=== PATIENT | female | born 1955 | race Caucasian/White ===

== ENCOUNTER 2020-02-13 22:30 | Inpatient (IN) | payer MEDICAID, OTHER ==
[~2020-02-13] VITALS: Ht 160 cm; Wt 132.0 kg
[2020-02-13 23:35] LABS: Basophils # (auto) 0.1 10 ^3/uL (0-0.2); Basophils % (auto) 0.6 % (0.0-2.0); Eosinophils # (auto) 0 10 ^3/uL (0-0.8); Eosinophils % (auto) 0.1 % (0.0-7.0); Hematocrit 37.8 % (36.0-46.0); Hemoglobin 11.4 g/dL (12.2-16.2); Lymphocytes # (auto) 1.4 10 ^3/uL (0.4-5.4); Mean Corpuscular Hemoglobin 27.7 pg (28.0-32.0); Mean Corpuscular Hgb Conc. 30.3 g/dL (32.0-36.0); Mean Corpuscular Volume 91.4 fL (80.0-100.0); Monocytes # (auto) 0.8 10 ^3/uL (0-1.3); Monocytes % (auto) 6.1 % (0.0-12.0); Neutrophils # (auto) 10.4 10 ^3/uL (1.6-8.6); Neutrophils % (auto) 82.2 % (37.0-80.0); Nucleated Red Blood Cells % 0.3 %; Platelet Count (auto) 399 10^3/uL (140-450); Red Blood Cells 4.13 10^6/uL (4.0-5.20); Red Cell Distribution Width 17.2 % (11.8-14.3); White Blood Cell 12.7 10^3/uL (4.4-10.8)
[2020-02-13 23:44] LABS: Albumin 2.3 g/dL (3.4-5.0); Calcium 6.3 mg/dL (8.5-10.1); Potassium 3.6 mmol/L (3.5-5.1)
[2020-02-13 23:47] LABS: Bilirubin, Total 1.2 mg/dL (0.2-1.0); Total Protein 6.9 g/dL (6.4-8.2)
[2020-02-13 23:57] LABS: Amylase 84 U/L (25-115); Lipase 61 U/L (73-393)
[2020-02-14 00:34] LABS: Lactic Acid w/Reflex 4.2 mmol/L (0.4-2.0)
[2020-02-14] MEDS ORDERED: PIPERACILLIN-TAZOB 3.375GM 100 ML IV ONE (01:30)
[2020-02-14] MEDS ORDERED: SODIUM CHLORIDE 0.9% 1,000 ML IV ONE ×3 (01:30→02:00)
[2020-02-14] MEDS ORDERED: VANCOMYCIN 1GM/250ML 250 ML IV ONE (01:30)
[2020-02-14] MEDS ORDERED: ONDANSETRON HCL 4 MG/2 ML VIAL IV PRN (02:00)
[2020-02-14] MEDS ORDERED: ACETAMINOPHEN 325 MG TAB PO PRN (02:00)
[2020-02-14] MEDS: SODIUM CHLORIDE 0.9% 1,000 ML IV SCH ×3 (02:24→21:34)
--- NOTE | 2020-02-14 03:14 | NUR ---
MS admit from [facility] admitted to tele/MS after NO SBAR WAS received. Patient oriented to ROBI YOST primary RN, unit, room, bed, and unit policies regarding patient care and visiting hours. She is A/O x4, on bedrest, skin intact, NG to the right nare currently clamped and pending XRAY verification on placement, IV to the RFA 20g running NS at 100mls/hr. Call light is within reach, side rails up x2, bed is in the lowest position. Patient weighed by bedscale and encouraged to call if they need something. All questions and concerns addressed, patient verbalized understanding. Note:
[2020-02-14 05:00] VITALS: BP 97/45
[2020-02-14] MEDS ORDERED: INFLUENZA QUAD 2019-2020 0.5ml SYRG IM ONE (05:00)
[2020-02-14] MEDS ORDERED: HYDR25TA4 PO (05:14)
[2020-02-14] MEDS ORDERED: LISI-646 PO (05:14)
--- NOTE | 2020-02-14 05:30 | NUR ---
BLADDER SCAN DONE Patient has tried to void 2x since she was admitted to the floor and was unable to. Bladder scan done and it showed 338 mL in the bladder. Patient stated she has not peed since the night of 02/12/20, the day before she came to the hospital. Will page hospitalist.
[2020-02-14] MEDS: metroNIDAZOLE 500MG/100ML 100 ML IV SCH ×3 (05:40→21:34)
--- NOTE | 2020-02-14 05:57 | NUR ---
Hospitalist called back, new order received to place a South for urinary retention.
--- NOTE | 2020-02-14 06:35 | NUR ---
South catheter insertion Patient assessed and determined to be in need of South catheter. Order obtained from MD. Patient educated on catheter and reason for insertion. All questions answered. South catheter 16 gauge Frisian inserted with clean sterile technique. Light kyara urine drained 750 mL. Urine sample collected and sent to lab. Patient tolerated well.
[2020-02-14 06:38] LABS: Basophils # (auto) 0.1 10 ^3/uL (0-0.2); Basophils % (auto) 0.4 % (0.0-2.0); Eosinophils # (auto) 0 10 ^3/uL (0-0.8); Eosinophils % (auto) 0.2 % (0.0-7.0); Hematocrit 34.2 % (36.0-46.0); Hemoglobin 10.9 g/dL (12.2-16.2); Lymphocytes # (auto) 2.2 10 ^3/uL (0.4-5.4); Lymphocytes % (auto) 19.3 % (10.0-50.0); Mean Corpuscular Hemoglobin 28.8 pg (28.0-32.0); Mean Corpuscular Hgb Conc. 31.7 g/dL (32.0-36.0); Mean Corpuscular Volume 90.8 fL (80.0-100.0); Monocytes # (auto) 0.8 10 ^3/uL (0-1.3); Monocytes % (auto) 6.7 % (0.0-12.0); Neutrophils # (auto) 8.5 10 ^3/uL (1.6-8.6); Neutrophils % (auto) 73.4 % (37.0-80.0); Nucleated Red Blood Cells % 0.3 %; Platelet Count (auto) 326 10^3/uL (140-450); Red Blood Cells 3.77 10^6/uL (4.0-5.20); Red Cell Distribution Width 17.1 % (11.8-14.3); White Blood Cell 11.6 10^3/uL (4.4-10.8)
--- NOTE | 2020-02-14 06:50 | NUR ---
Urine sample collected and sent to lab via [employer] system.
[2020-02-14 06:57] LABS: Potassium 3.6 mmol/L (3.5-5.1)
[2020-02-14 06:59] LABS: BUN/Creatinine Ratio 8.7
--- NOTE | 2020-02-14 07:00 | NUR ---
NG tube further advanced, chest X-ray ordered stat to verify the placement of the NG tube.
--- NOTE | 2020-02-14 07:26 | NUR ---
Endorsed care to Key FIELDS. Patient is resting in bed, call light is within reach, fall precautions are in place. Patient is pending Chest X-ray to verify NG tube placement.
[2020-02-14 07:28] LABS: Urine Bacteria NONE SEEN /hpf (None Seen); Urine Blood Negative /uL (Negative); Urine Specific Gravity 1.008 (1.001-1.035); Urine WBC 1 /hpf (0 - 5)
[2020-02-14 07:33] LABS: Calcium 5.9 mg/dL (8.5-10.1)
--- NOTE | 2020-02-14 07:33 | NUR ---
Paging Hospitalist: Calcium 5.9 Paging hospitalist regarding critical lab of calcium at 5.9. Waiting for call back.
--- NOTE | 2020-02-14 07:38 | NUR ---
Received call back Received call back from hospitalist for patient's critical lab. Hospitalist to input orders. Will continue to monitor.
[2020-02-14] MEDS ORDERED: CALCIUM CHL 100MG/ML 500 MG in D5W 5% 100 ML IV ONE (07:45)
--- NOTE | 2020-02-14 07:45 | NUR ---
Opening Shift Note Assumed care of patient, who is alert and oriented x4. No S/S of distress/SOB or pain. IV to right FA is patent and intact. Urinary catheter is hung below bladder, free of kinks and draining to gravity. NG tube to right nare is intact. Verifying placement of NG so it is not connected to suction at this time. Bed is low, locked with 2x side rails up. Call light is within reach. Instructed on POC and to callfor assist PRN, will continue to monitor for changes Q1hr and PRN.
[2020-02-14 08:00] VITALS: BP 100/86
--- NOTE | 2020-02-14 08:15 | NUR ---
Tele box Requesting Tele box for patient due to it being required while giving calcium IVPB. Will send Telemetry box back after medication administration.
[2020-02-14 08:30] VITALS: BP 100/86
--- NOTE | 2020-02-14 08:45 | NUR ---
Stool Sample Specimen cup at bedside. Provided patient with instructions. Patient verbalized understanding.
[2020-02-14] MEDS: MORPHINE SULFATE 4 MG/ML SYR/VIAL IV PRN ×3 (08:56→18:38)
--- NOTE | 2020-02-14 10:31 | NUR ---
LVM for Ligia Justin LVM for Ligia Justin regarding UGI Gastrografin orders. Waiting for call back.
--- NOTE | 2020-02-14 11:06 | NUR ---
Social Service consult regarding Advance Directives. Provided pt with information on Advance Directives and Durable Power of [place]il[place]er Form/ Pt verbalized understand and accepted information. Will contact Wealth Management Manager for any further concerns.
--- NOTE | 2020-02-14 11:39 | NUR ---
Bhavna Justin for clarification on orders. Waiting for call back.
--- NOTE | 2020-02-14 12:20 | NUR ---
Orders clarified Spoke with Ligia Justin regarding small bowel series. Will call radiology to update.
[2020-02-14 13:00] VITALS: BP 97/57
[2020-02-14] MEDS ORDERED: GASTROGRAFIN 120 ML SOL ONE (13:04)
--- NOTE | 2020-02-14 13:53 | NUR ---
Nutrition Assessment Notes Please refer to link for full assessment notes. Est energy needs: 3739-9784 kcals (12-15 kcal/kgBW) Est protein needs: 57-71 gms/day (0.8-1.0 gm/kgAdjBW) Will continue to monitor and reassess prn. Addendum: 02/14/20 at [address] Amended: Links added.
--- NOTE | 2020-02-14 14:04 | NUR ---
Assessment Patient is a 65-year-old female alert and oriented. Prior to admission patient lived home with her son Isidro and functioned independently. Patient informed me she can care for her own ADLs. Per patient she will return home to her prior living arrangements post discharge and her son Isidro will transport her home. Patient informed me she does not have any medical equipment at home. Advised patient there is a Social Service consult for a walker and information for advance directive. Informed patient clinical information will be faxed to [employer] and OJURDAN Cavazosty will provide her with information for advance directive. Patient requested for walker to be deliver to home. Informed patient she has the right to participate in all discharge planning. Patient verbalized understanding and agrees to discharge plan. Addendum: 02/14/20 at 1404 by MIKE STEWART Amended: Links added.
--- NOTE | 2020-02-14 14:40 | NUR ---
Back from Radiology Per cartographic technician, this nurse is to keep NGT clamped. Patient resting in bed, low locked with 2x side rails up. Call light is within reach. Will continue to monitor.
[2020-02-14 16:38] VITALS: BP 100/57
--- NOTE | 2020-02-14 17:15 | NUR ---
NGT LIS Per Radiology, small bowel series is complete and NGT can be connected back to suction. Set to LIS as per MD order. Will continue to monitor.
--- NOTE | 2020-02-14 18:41 | NUR ---
Sent tele box back to ICU
--- NOTE | 2020-02-14 19:23 | NUR ---
Opening Shift Note Assumed care of patient, awake and alert x4. No S/S of distress/SOB or pain. South is in place and hung below bladder, it is draining kyara urine. NG tube to LIS. Call light is within reach, side rails up x2, bed is in the lowest position. Instructed on POC and to call for assist PRN, will continue to monitor for changes Q1hr and PRN.
[2020-02-14] MEDS: HYDROcodone-ACET 5/325MG TAB PO PRN (21:35)
--- NOTE | 2020-02-14 21:35 | NUR ---
Pain [place] 5 given for complaints of pain 9/0-10 to the great right toe, patient states she thinks it is really to her arthritis and at home she takes Tylenol PM for her pain. Morphine for severe pain is not due until 22:38. Will reassess.
[2020-02-14 22:00] VITALS: BP 94/59
--- NOTE | 2020-02-14 22:35 | NUR ---
PAIN REASSESSMENT Patient is asleep in bed, no S/S of pain noted. Call light is within reach. Will continue to monitor.
[2020-02-15] VITALS (7 sets, daily range): BP systolic 90–119; BP diastolic 56–72
[2020-02-15] MEDS: MORPHINE SULFATE 4 MG/ML SYR/VIAL IV PRN ×2 (01:47→12:06)
--- NOTE | 2020-02-15 01:48 | NUR ---
PAIN Patient is complaining of pain 9/0-10 to the right shoulder. Morphine administered as ordered and a heat pack applied for comfort. Will reassess.
--- NOTE | 2020-02-15 02:17 | NUR ---
PAIN REASSESSMENT Patient is asleep in bed, no S/S of pain noted. Call light is within reach. Will continue to monitor.
[2020-02-15] MEDS ORDERED: PANT1INJ3 PO (05:20)
--- NOTE | 2020-02-15 05:50 | NUR ---
IV removal due to infiltration to RFA IV DC'd with clean sterile technique, catheter fully intact. Pressure dressing applied to site. Patient tolerated well.
[2020-02-15] MEDS: metroNIDAZOLE 500MG/100ML 100 ML IV SCH ×3 (06:34→22:50)
[2020-02-15] MEDS: HYDROcodone-ACET 5/325MG TAB PO PRN ×4 (06:35→22:51)
--- NOTE | 2020-02-15 06:35 | NUR ---
IV insertion 22g LFA IV access obtained, via clean sterile technique by inserting 22 gauge catheter at LFA after 2 attempt(s). IV secured properly. No trauma to site. Patient tolerated well.
--- NOTE | 2020-02-15 06:35 | NUR ---
Pain [place] 5 given for complaints of pain 9/0-10 to the right shoulder, patient requested norco. Will reassess.
[2020-02-15] MEDS: SODIUM CHLORIDE 0.9% 1,000 ML IV SCH ×2 (08:00→18:00)
--- NOTE | 2020-02-15 08:00 | NUR ---
Morning note Patient resting in bed with even and unlabored respirations, no distress noted. Instructed patient on POC, fall precautions and to call for assistance as needed. Patient verbalized understanding. Fall precautions in place with call light within reach. NGT present and placed to LIS per MD order. Patient able to turn self independently.
[2020-02-15] MEDS: cefTRIAXone 1GM/50ML D5W 50 ML IV SCH (08:48)
--- NOTE | 2020-02-15 10:49 | NUR ---
RE: Pain patient requested PRN pain medication for pain located in the right shoulder. PRN pain medication administered per MD order. LIS turned off to allow medication administration.
[2020-02-15 10:51] LABS: Basophils # (auto) 0.1 10 ^3/uL (0-0.2); Basophils % (auto) 0.7 % (0.0-2.0); Eosinophils # (auto) 0.1 10 ^3/uL (0-0.8); Eosinophils % (auto) 1.1 % (0.0-7.0); Hematocrit 39.4 % (36.0-46.0); Hemoglobin 12.2 g/dL (12.2-16.2); Lymphocytes % (auto) 19.9 % (10.0-50.0); Mean Corpuscular Hemoglobin 28.6 pg (28.0-32.0); Mean Corpuscular Volume 92.2 fL (80.0-100.0); Monocytes # (auto) 0.9 10 ^3/uL (0-1.3); Monocytes % (auto) 9.4 % (0.0-12.0); Neutrophils # (auto) 6.8 10 ^3/uL (1.6-8.6); Neutrophils % (auto) 68.9 % (37.0-80.0); Nucleated Red Blood Cells % 0.5 %; Platelet Count (auto) 301 10^3/uL (140-450); Red Blood Cells 4.27 10^6/uL (4.0-5.20); Red Cell Distribution Width 17.5 % (11.8-14.3); White Blood Cell 9.9 10^3/uL (4.4-10.8)
[2020-02-15 11:09] LABS: Calcium 6.4 mg/dL (8.5-10.1); Potassium 3.9 mmol/L (3.5-5.1)
--- NOTE | 2020-02-15 11:37 | NUR ---
was at bedside - Dr. Cabrera Orders received and read back to verify.
[2020-02-15] MEDS ORDERED: KETOROLAC TROMETH 15 mg/ml 1ML VL IV PRN (11:45)
[2020-02-15] MEDS ORDERED: PANTOPRAZOLE 40 MG/10 ML VIAL INJ IV ONE (11:45)
--- NOTE | 2020-02-15 12:20 | NUR ---
NGT removed per MD order Patient tolerated well.
--- NOTE | 2020-02-15 13:55 | NUR ---
Episode of emesis Patient stated "I was coughing and then I gagged and threw up a little." Approximately 20ml of fluid in emesis bag. Patient denies N/V or abdominal pain. Respirations even and unlabored, no distress noted.
--- NOTE | 2020-02-15 15:25 | NUR ---
Patient resting in bed with even and unlabored respirations, no distress noted. Patient denies N/V or abdominal pain. Patient denies passing gas. patient stated "I can feel my stomach bubbling though."
--- NOTE | 2020-02-15 18:45 | NUR ---
Patient has active bowel sounds Patient reports pain in the LUQ, RUQ, and RLLQ. Bowel sounds present. Patient reports nausea comes and goes. Patient denies vomiting. Addendum: 02/15/20 at 1846 by Mayra Oakley RN PRN pain medication administered per MD order.
--- NOTE | 2020-02-15 18:53 | NUR ---
Closing note Patient resting in bed with even and unlabored respirations, no distress noted. Educated patient on pressure ulcer prevention and to turn frequently. Patient verbalized understanding. Patient able to turn self independently. Fall precautions in place with call light within reach.
--- NOTE | 2020-02-15 19:29 | NUR ---
Care endorsed to DIAMOND Rondon.
--- NOTE | 2020-02-15 19:35 | NUR ---
Opening Shift Note Pt is resting in bed with eyes open and resp rate is even and unlabored. Pt w/ positive BS in all 4 quadrants and denies any n/v or diarrhea at this time. Pt is sophia clear liquids w/ no complaints. POC discussed with pt at this time and pt verbalizes understanding including calling when she has a BM for stool collection. Bed is low, wheels are locked, and call light is with in reach.
[2020-02-15] MEDS: KETOROLAC TROMETH 30 MG/ML 1ML VIAL IV PRN (22:51)
[2020-02-16] MEDS: MAGNESIUM SULFATE 1GM/100ML 100 ML IV SCH ×4 (03:38→14:10)
[2020-02-16] MEDS: SODIUM CHLORIDE 0.9% 1,000 ML IV SCH ×2 (03:38→17:55)
[2020-02-16] MEDS: KETOROLAC TROMETH 30 MG/ML 1ML VIAL IV PRN (04:58)
[2020-02-16 05:00] VITALS: BP 100/70
[2020-02-16] MEDS: metroNIDAZOLE 500MG/100ML 100 ML IV SCH (06:05)
--- NOTE | 2020-02-16 07:30 | NUR ---
Morning note Patient resting in bed with even and unlabored respirations, no distress noted. Instructed patient on POC, fall precautions, pressure ulcer prevention and to call for assistance as needed. Patient verbalized understanding. Fall precautions in place with call light within reach. Patient able to turn self independently.
[2020-02-16 09:00] VITALS: BP 109/66
[2020-02-16] MEDS: cefTRIAXone 1GM/50ML D5W 50 ML IV SCH (09:08)
[2020-02-16] MEDS ORDERED: PANTOPRAZOLE 40 MG/10 ML VIAL INJ IV SCH (10:00)
[2020-02-16 10:28] LABS: BUN/Creatinine Ratio 7.6; Calcium 6.7 mg/dL (8.5-10.1); Magnesium 1.5 mg/dL (1.6-2.6); Potassium 3.5 mmol/L (3.5-5.1)
--- NOTE | 2020-02-16 12:18 | NUR ---
MD was at bedside - Dr. Cabrera Patient to be discharged after dinner meal if tolerating diet well. Orders received and read back to verify.
--- NOTE | 2020-02-16 12:18 | NUR ---
MD was at bedside - Dr. Ligia Justin POC discussed with the patient and this RN. Patient okay to be discharged.
[2020-02-16] MEDS ORDERED: METR500T PO (13:05)
[2020-02-16] MEDS ORDERED: LEVO500T21 PO (13:05)
[2020-02-16] MEDS ORDERED: MORPHINE SULF INJ 2 MG/ML SYRINGE 1ML IV PRN (13:15)
[2020-02-16] MEDS: LACTULOSE 20Gm/30ML SOLN PO ONE ×2 (13:24→13:38)
[2020-02-16 13:32] VITALS: BP 103/73
--- NOTE | 2020-02-16 13:41 | NUR ---
RE: discharge/POC Spoke with KOFI Garcia, and Dr. Cabrera RE: discharge plan. Patient unable to transfer self off of toilet as well as in and out of bed. Patient has no assistance at home. verbalized understanding.
--- NOTE | 2020-02-16 13:58 | NUR ---
Patient reports feeling lightheaded with ambulation Patient ambulated to and from the toilet using FWW as assistive device. Jose, PT, accompanied patient. Dr. Shaikh sanchez.
[2020-02-16] MEDS ORDERED: POTASSIUM CHL 20 Meq TABLET PO ONE (14:00)
--- NOTE | 2020-02-16 14:00 | NUR ---
Patient had BM Patient reports BM was watery and loose. Patient reports passing gas. Patient denies N/V and ABD pain.
[2020-02-16] MEDS: metroNIDAZOLE 500 MG TAB PO SCH ×2 (14:11→22:24)
--- NOTE | 2020-02-16 14:35 | NUR ---
re-assessment Per consult SNF placement. Per Laura at [facility] and Cherelle at [facility] does not pay for rehab. Patient has no payor source for SNF. Patient will have to return home on discharge. Dora FIELDS has been notified and Dr Shaikh holland with no call back as of yet. Addendum: 02/16/20 at 1437 by Selena Blunt Amended: Links added.
--- NOTE | 2020-02-16 14:37 | NUR ---
Notified MD RE: SNF placement order Due to insurance, patient not able to be transferred to SNF. MD verbalized understanding. Order received and read back to verify.
[2020-02-16 16:41] VITALS: BP 98/63
[2020-02-16] MEDS: HYDROcodone-ACET 5/325MG TAB PO PRN (18:45)
--- NOTE | 2020-02-16 18:45 | NUR ---
RE: Pain Patient reporting 8/10 pain in the right shoulder. Patient's recent BP low. PRN IV Morphine held due to decreased BP. PRN PO [place] administered. Offered patient a heat pack. Patient refused.
--- NOTE | 2020-02-16 18:48 | NUR ---
Patient tolerating meal okay Patient stated "I'm just not hungry. Nothing tastes good, not even the ice cream. My stomach feels like it's acting up. It's kind of bubbling. I feel like I may need to go poop but not sure."
--- NOTE | 2020-02-16 18:50 | NUR ---
Closing note Patient resting in bed with even and unlabored respirations on room air, no distress noted. Fall precautions in place with call light within reach.
--- NOTE | 2020-02-16 19:10 | NUR ---
Care endorsed to Nela Vail RN.
[2020-02-16 22:21] VITALS: BP 114/80
[2020-02-17] MEDS: SODIUM CHLORIDE 0.9% 1,000 ML IV SCH (03:07)
[2020-02-17 05:04] VITALS: BP 125/85
[2020-02-17 05:29] LABS: BUN/Creatinine Ratio 10.7; Calcium 6.7 mg/dL (8.5-10.1); Magnesium 1.9 mg/dL (1.6-2.6); Potassium 5.4 mmol/L (3.5-5.1)
[2020-02-17] MEDS: metroNIDAZOLE 500 MG TAB PO SCH ×3 (05:31→21:29)
[2020-02-17] MEDS: HYDROcodone-ACET 5/325MG TAB PO PRN ×3 (05:32→19:37)
[2020-02-17 08:00] VITALS: BP 113/70
[2020-02-17 09:05] VITALS: BP 113/70
[2020-02-17] MEDS: levoFLOXacin 500 MG TAB PO SCH (10:51)
[2020-02-17] MEDS: PANTOPRAZOLE 40 MG TAB PO SCH (10:51)
[2020-02-17] MEDS ORDERED: ALBUTEROL SULF 2.5 MG/0.5ML(0.5%) NEB SOLN NEB ONE (11:30)
[2020-02-17] MEDS ORDERED: FUROSEMIDE 20 MG/2 ML VIAL IV ONE (11:30)
[2020-02-17] MEDS ORDERED: InsuLIN REG 1unit/0.01ml Soln (100units/ml) IV ONE (11:30)
[2020-02-17] MEDS ORDERED: SODIUM ZIRCONIUM CYCL 10 GM PAK PO ONE (11:30)
[2020-02-17] MEDS ORDERED: SODIUM BICARBONATE 8.4% INJ 50ML SYRINGE IV ONE (11:30)
[2020-02-17] MEDS ORDERED: DEXTROSE (50%) 50ML SYRG IV ONE (11:30)
[2020-02-17] MEDS ORDERED: SODIUM CHLORIDE 0.9 % NEB SOLN 3ML NEB ONE (12:06)
[2020-02-17 13:00] VITALS: BP 109/57
--- NOTE | 2020-02-17 14:40 | NUR ---
Nutrition Followup Notes Pt wt is 130.0 kg Pt is now on a soft diet, appetite is good aeb ave 75% x3 PO intake per RN doc. Pt with no distress or complaints. Will continue to monitor PO status, skin status, pertinent labs and weight trends. Will f/u in 3 to 5 days. Est energy needs: 7057-5959 kcals (12-15 kcal/kgBW) Est protein needs: 57-71 gms/day (0.8-1.0 gm/kgAdjBW) Will continue to monitor and reassess prn. LABS: Pot 5.4 H, Cl 108 H, Ca 6.7 L, Alb 2.3 L GI: Last BM noted on 02/14/20 per sheet ironworker BS: 19 low risk, no wounds. Please refer to wound assessment report for full details. PES: Problem 1) Increased nutrient needs r/t pt with 0% PO intake aeb pt currently NPO 2) Obesity r/t energy intake in excess of energy needs aeb 243% IBW and BMI of 49.6 kg/m2 Comments Will continue to closely monitor pertinent labs, PO intake and skin status prn. Will followup in 2-3 days. 1) Continue to closely monitor pt NPO status (RESOLVED) 2) If pt remains NPO for the next 72 hours, consider supplemental nutrition support (RESOLVED) 3) Gradually advance pt to oral 2gNa diet when medically feasible and as tolerated (pt with [employer] diet) 4) Refer pt to a RD for nutrition education upon D/C 5) Continue current plan of care
[2020-02-17 16:40] VITALS: BP 125/58
--- NOTE | 2020-02-17 18:21 | NUR ---
RECEIVED CALL FROM DR AUGUST. PATIENT TO BE DISCHARGED TOMORROW MORNING. WILL CHANGE DISCHARGE DATE.
--- NOTE | 2020-02-17 19:40 | NUR ---
RECEIVED PATIENT FROM DAY SHIFT RN. PATIENT RESTING IN BED. NO S/S OF DISTRESS NOTED. C/O PAIN ON RIGHT SHOULDER @ 9/10, PATIENT PREFERRED NORCO, MEDICATED PATIENT ORDERED. POC INSTRUCTED AND ENCOURAGED PATIENT TO CALL FOR DAYLIGHT DRILLER IF NEEDED. BED IN LOWEST POSITION WITH SIDE RAILS UP X 2. CALL SANTOS WITHIN REACH. ALARM ON. CONTINUE TO MONITOR FOR CHANGES Q1H AND PRN.
--- NOTE | 2020-02-17 20:17 | NUR ---
PATIENT'S IV LEAKING. STOPPED IVF. TRYING TO GET ANOTHER IV ACCESS. PATIENT REFUSED AND STATED THAT SHE WILL GO HOME TOMORROW. SHE DID NOT NEED ANOTHER IV INSERTION. WILL REPORT TO CHARGE NURSE SUZI. CONTINUE TO MONITOR.
--- NOTE | 2020-02-17 20:35 | NUR ---
REASSESSED PAIN 05/10. PATIENT STATED COMFORTABLE NOW. CONTINUE TO MONITOR.
[2020-02-17 21:56] VITALS: BP 115/75
--- NOTE | 2020-02-17 22:16 | NUR ---
PATIENT RESTING IN BED. NO S/S OF DISTRESS NOTED. OAKES CATH IN PLACE DRAINING TO GRAVITY. CONTINUE TO MONITOR.
[2020-02-18] MEDS: HYDROcodone-ACET 5/325MG TAB PO PRN ×3 (00:15→10:30)
--- NOTE | 2020-02-18 00:20 | NUR ---
PATIENT C/O PAIN @ 07/11, PATIENT PREFERRED NORCO, MEDICATED PATIENT ORDERED.
--- NOTE | 2020-02-18 01:09 | NUR ---
REASSESSED, PAIN 5/10. PATIENT COMFORTABLE NOW. CONTINUE TO MONITOR.
--- NOTE | 2020-02-18 03:39 | NUR ---
PATIENT SLEEPING. NO S/S OF DISTRESS NOTED. OAKES CATH IN PLACE. CONTINUE CARE.
[2020-02-18 05:12] VITALS: BP 116/72
[2020-02-18] MEDS: metroNIDAZOLE 500 MG TAB PO SCH ×2 (06:01→14:13)
--- NOTE | 2020-02-18 06:02 | NUR ---
PATIENT C/O PAIN @ 07/11, PATIENT PREFERRED NORCO, MEDICATED PATIENT ORDERED.
--- NOTE | 2020-02-18 07:38 | NUR ---
Opening Shift Note Assumed care of patient, awake and alert. No S/S of distress/SOB or pain. Instructed on POC and to call for assist PRN, will continue to monitor for changes Q1hr and PRN. Bed locked in lowest position with two side rails up and call light in reach.
[2020-02-18 08:00] VITALS: BP 115/72
[2020-02-18 09:00] VITALS: BP 115/72
[2020-02-18 09:47] LABS: BUN/Creatinine Ratio 12.2; Calcium 7.4 mg/dL (8.5-10.1); Potassium 3.6 mmol/L (3.5-5.1)
[2020-02-18] MEDS: PANTOPRAZOLE 40 MG TAB PO SCH (10:20)
[2020-02-18] MEDS: levoFLOXacin 500 MG TAB PO SCH (10:20)
[2020-02-18 11:31] VITALS: BP 115/72
[2020-02-18 13:00] VITALS: BP 128/75
--- NOTE | 2020-02-18 16:30 | NUR ---
Discharge instructions given as ordered. Encourage to follow up with PMD as instructed. All questions and concerns addressed. Patient verbalized understanding. Medication reconciliation form completed and copy given to patient. No Home medications held in Pharmacy and none to be returned to patient, and no needed vaccines given. IV removed with catheter intact, pressure dressing applied, herbert catheter removed. Patient taken to vehicle via wheelchair with all personal belongings, accompanied by staff and family member. No distress noted at time of departure.
== END 2020-02-18 16:30 | disposition home or self-care (01) | DRG 720 ==
LOC: EDSEX 22:30 → ER 22:30 → EDBD 22:30 → OVERFLOW 22:31 → WEST WING 02-14 04:38
PROVIDERS: ADMIT Hospitalist; ATTEND Internal Medicine
PROC: 0D9670Z Drainage of Stomach with Drainage Device, Via Natural or Artificial Opening (ICD-10-PCS; principal; 2020-02-14)
DX: A41.9 Sepsis, unspecified organism (principal); N17.0 Acute kidney failure with tubular necrosis; J69.0 Pneumonitis due to inhalation of food and vomit; K56.600 Partial intestinal obstruction, unspecified as to cause; E86.0 Dehydration; I10 Essential (primary) hypertension; E66.01 Morbid (severe) obesity due to excess calories; E87.5 Hyperkalemia; A08.4 Viral intestinal infection, unspecified; Z90.49 Acquired absence of other specified parts of digestive tract; Z68.43 Body mass index [BMI] 50.0-59.9, adult
CPT/HCPCS: 36415; 71045; 74176; 74250; 80048; 80053; 80061; 81001; 82150; 82962; 83605; 83690; 83735; 83880; 84132; 84443; 85025; 87040; 93005; 96365; 96368; 97116; 97163; 97530; C9113; G0378; J0696; J1815; J1885; J2543; J3490; J7060

== ENCOUNTER 2020-03-12 22:25 | Inpatient (IN) | payer MEDICAID ==
[~2020-03-12] VITALS: Ht 160 cm; Wt 125.5 kg
[~2020-03-12 22:25] MED LIST: LEVO500T21 PO; METR500T PO; PANT1INJ3 PO
[2020-03-12] MEDS ORDERED: SODIUM CHLORIDE 0.9% 1,000 ML IV ONE (23:15)
[2020-03-12 23:39] LABS: Basophils # (auto) 0 10 ^3/uL (0-0.2); Basophils % (auto) 0.5 % (0.0-2.0); Eosinophils # (auto) 0.1 10 ^3/uL (0-0.8); Eosinophils % (auto) 0.6 % (0.0-7.0); Hemoglobin 11.2 g/dL (12.2-16.2); Lymphocytes # (auto) 1.6 10 ^3/uL (0.4-5.4); Lymphocytes % (auto) 14.7 % (10.0-50.0); Mean Corpuscular Hgb Conc. 30.3 g/dL (32.0-36.0); Mean Corpuscular Volume 92.5 fL (80.0-100.0); Monocytes # (auto) 0.7 10 ^3/uL (0-1.3); Monocytes % (auto) 6.3 % (0.0-12.0); Neutrophils # (auto) 8.4 10 ^3/uL (1.6-8.6); Neutrophils % (auto) 77.9 % (37.0-80.0); Nucleated Red Blood Cells % 1.2 %; Platelet Count (auto) 220 10^3/uL (140-450); Red Cell Distribution Width 18.4 % (11.8-14.3); White Blood Cell 10.8 10^3/uL (4.4-10.8)
[2020-03-12 23:47] LABS: INR 1.32 (0.9-1.15); Partial Thromboplastin Time 25.2 sec (23.64-32.05)
[2020-03-12 23:52] LABS: Calcium 8.5 mg/dL (8.5-10.1); Potassium 3.5 mmol/L (3.5-5.1)
[2020-03-12 23:55] LABS: Albumin 2.2 g/dL (3.4-5.0); BUN/Creatinine Ratio 14.6
[2020-03-12 23:59] LABS: Bilirubin, Total 1.1 mg/dL (0.2-1.0); Total Protein 7.4 g/dL (6.4-8.2)
[2020-03-13] VITALS (9 sets, daily range): BP systolic 105–137; BP diastolic 73–86
[2020-03-13 02:03] LABS: Urine Bacteria FEW /hpf (None Seen); Urine Blood Negative /uL (Negative); Urine Hyaline Cast MANY /lpf (0 - 2); Urine Mucus FEW (None Seen); Urine Specific Gravity 1.024 (1.001-1.035); Urine WBC 2 /hpf (0 - 5)
[2020-03-13] MEDS ORDERED: MORPHINE SULF INJ 2 MG/ML SYRINGE 1ML IV PRN (03:00)
[2020-03-13] MEDS ORDERED: TEMAZEPAM 15 MG CAP PO PRN (03:00)
[2020-03-13] MEDS ORDERED: NITROGLYCERIN 0.4 MG SL TAB SL PRN (03:00)
[2020-03-13] MEDS ORDERED: ONDANSETRON HCL 4 MG/2 ML VIAL IV PRN (03:00)
[2020-03-13] MEDS ORDERED: LOPERAMIDE HCL 2 MG CAP PO PRN (03:00)
[2020-03-13] MEDS: ACETAMINOPHEN 325 MG TAB PO PRN ×2 (05:15→17:43)
[2020-03-13] MEDS ORDERED: IBUP800T24 PO (05:29)
[2020-03-13] MEDS ORDERED: HYDR25TA4 PO (05:29)
[2020-03-13] MEDS ORDERED: LISI-646 PO (05:29)
[2020-03-13] MEDS: PANTOPRAZOLE 40 MG/10 ML VIAL INJ IV SCH (09:40)
[2020-03-13] MEDS ORDERED: ENOXAPARIN SOD 30 MG/0.3 ML SYRINGE SC SCH (10:00)
[2020-03-13] MEDS ORDERED: ASPirin 81 mg TAB PO SCH (10:00)
[2020-03-13] MEDS ORDERED: POTASSIUM CHL 20 Meq TABLET PO ONE (12:30)
[2020-03-13 13:57] LABS: BUN/Creatinine Ratio 17.5; Potassium 3.5 mmol/L (3.5-5.1)
[2020-03-13] MEDS ORDERED: FUROSEMIDE 40 MG/4 ML VIAL IV ONE (16:00)
[2020-03-13] MEDS ORDERED: POTASSIUM CHLORIDE 20 MEQ, LIDOCAINE 1% (LOCAL ANESTH.) 2 ML in SODIUM CHL 0.9% 100 ML IV ONE (16:00)
[2020-03-13] MEDS: MAGNESIUM SULFATE 1GM/100ML 100 ML IV SCH ×2 (17:43→20:15)
[2020-03-13] MEDS: FUROSEMIDE 40 MG/4 ML VIAL IV SCH (17:45)
[2020-03-13] MEDS: ALBUTEROL SULF 2.5 MG/0.5ML(0.5%) NEB SOLN NEB SCH ×2 (18:11→22:05)
[2020-03-13] MEDS: IPRATROPIUM BROM 0.5 MG/2.5ML INH SOL NEB SCH ×2 (18:11→22:05)
[2020-03-13] MEDS ORDERED: MAGNESIUM SULFATE 1GM/100ML 100 ML IV ONE (20:12)
[2020-03-13] MEDS ORDERED: IOHEXOL 350 MG/ML 100ML IJ ONE (21:01)
[2020-03-13] MEDS ORDERED: ENOXAPARIN SOD 100 MG/1 ML SYRINGE SC ONE (22:15)
[2020-03-13] MEDS: MAGNESIUM OXIDE 400 MG TAB PO SCH (22:48)
[2020-03-14] MEDS: ALBUTEROL SULF 2.5 MG/0.5ML(0.5%) NEB SOLN NEB SCH ×6 (02:33→22:56)
[2020-03-14] MEDS: IPRATROPIUM BROM 0.5 MG/2.5ML INH SOL NEB SCH ×6 (02:34→22:56)
[2020-03-14 05:00] VITALS: BP 101/60
[2020-03-14] MEDS: FUROSEMIDE 40 MG/4 ML VIAL IV SCH ×2 (06:01→18:01)
[2020-03-14 06:28] LABS: Basophils # (auto) 0.1 10 ^3/uL (0-0.2); Basophils % (auto) 0.6 % (0.0-2.0); Eosinophils # (auto) 0.2 10 ^3/uL (0-0.8); Eosinophils % (auto) 1.9 % (0.0-7.0); Hemoglobin 10.1 g/dL (12.2-16.2); Lymphocytes # (auto) 1.7 10 ^3/uL (0.4-5.4); Lymphocytes % (auto) 16.2 % (10.0-50.0); Mean Corpuscular Hemoglobin 28.3 pg (28.0-32.0); Mean Corpuscular Hgb Conc. 31.7 g/dL (32.0-36.0); Mean Corpuscular Volume 89.3 fL (80.0-100.0); Monocytes # (auto) 0.9 10 ^3/uL (0-1.3); Monocytes % (auto) 8.5 % (0.0-12.0); Neutrophils # (auto) 7.8 10 ^3/uL (1.6-8.6); Neutrophils % (auto) 72.8 % (37.0-80.0); Nucleated Red Blood Cells % 0.4 %; Platelet Count (auto) 202 10^3/uL (140-450); Red Blood Cells 3.58 10^6/uL (4.0-5.20); Red Cell Distribution Width 17.8 % (11.8-14.3); White Blood Cell 10.6 10^3/uL (4.4-10.8)
[2020-03-14 06:50] LABS: Alanine Aminotransferase 10 U/L (13-56); Albumin 1.9 g/dL (3.4-5.0); Anion Gap 8 (5-15); Aspartate Aminotransferase 29 U/L (15-37); BUN/Creatinine Ratio 14.3; Blood Urea Nitrogen 14 mg/dL (7-18); Carbon Dioxide 27 mmol/L (21-32); Chloride 106 mmol/L (98-107); GFR African American 74 mL/min; GFR Non-African American 61 mL/min; Glucose 111 mg/dL (74-106); Magnesium 1.4 mg/dL (1.6-2.6); Potassium 3.7 mmol/L (3.5-5.1); Sodium 141 mmol/L (136-145)
[2020-03-14 06:53] LABS: Alkaline Phosphatase 71 U/L (45-117); Total Protein 6.5 g/dL (6.4-8.2)
[2020-03-14] MEDS ORDERED: ADENOSINE 111 MG in GIVE UN-DILUTED 0 ML IV ONE (08:30)
[2020-03-14 09:00] VITALS: BP 108/54
[2020-03-14] MEDS: PANTOPRAZOLE 40 MG/10 ML VIAL INJ IV SCH (09:20)
[2020-03-14] MEDS: MAGNESIUM OXIDE 400 MG TAB PO SCH (09:21)
[2020-03-14] MEDS: ASPirin 81 mg TAB PO SCH (09:21)
[2020-03-14] MEDS ORDERED: ENOXAPARIN SOD 100 MG/1 ML SYRINGE SC SCH (10:00)
[2020-03-14] MEDS ORDERED: ENOXAPARIN SOD 40 MG/0.4 ML SYRINGE SC SCH (10:00)
[2020-03-14] MEDS: MAGNESIUM SULFATE 1GM/100ML 100 ML IV SCH ×4 (11:10→15:37)
[2020-03-14] MEDS: ACETAMINOPHEN 325 MG TAB PO PRN ×2 (11:18→18:10)
[2020-03-14 12:55] VITALS: BP 111/47
[2020-03-14 16:56] VITALS: BP 100/67
[2020-03-14] MEDS: ENOXAPARIN SOD 150 MG/1 ML SYRINGE SC SCH (21:45)
[2020-03-14 22:00] VITALS: BP 100/63
[2020-03-14] MEDS: HYDROcodone-ACET 5/325MG TAB PO PRN (23:24)
[2020-03-15] MEDS: ALBUTEROL SULF 2.5 MG/0.5ML(0.5%) NEB SOLN NEB SCH ×6 (02:30→22:07)
[2020-03-15] MEDS: IPRATROPIUM BROM 0.5 MG/2.5ML INH SOL NEB SCH ×6 (02:30→22:07)
[2020-03-15 05:00] VITALS: BP 94/61
[2020-03-15] MEDS: FUROSEMIDE 40 MG/4 ML VIAL IV SCH ×2 (06:00→17:42)
[2020-03-15 06:53] LABS: Basophils # (auto) 0 10 ^3/uL (0-0.2); Basophils % (auto) 0.4 % (0.0-2.0); Eosinophils # (auto) 0.3 10 ^3/uL (0-0.8); Eosinophils % (auto) 3.5 % (0.0-7.0); Hematocrit 31.5 % (36.0-46.0); Lymphocytes # (auto) 1.9 10 ^3/uL (0.4-5.4); Lymphocytes % (auto) 21.4 % (10.0-50.0); Mean Corpuscular Hemoglobin 28.7 pg (28.0-32.0); Mean Corpuscular Hgb Conc. 31.7 g/dL (32.0-36.0); Mean Corpuscular Volume 90.3 fL (80.0-100.0); Monocytes # (auto) 0.8 10 ^3/uL (0-1.3); Monocytes % (auto) 8.8 % (0.0-12.0); Neutrophils # (auto) 5.7 10 ^3/uL (1.6-8.6); Neutrophils % (auto) 65.9 % (37.0-80.0); Nucleated Red Blood Cells % 0.4 %; Platelet Count (auto) 215 10^3/uL (140-450); Red Blood Cells 3.49 10^6/uL (4.0-5.20); Red Cell Distribution Width 17.6 % (11.8-14.3); White Blood Cell 8.7 10^3/uL (4.4-10.8)
[2020-03-15 06:59] LABS: BUN/Creatinine Ratio 14.3; Magnesium 2.1 mg/dL (1.6-2.6); Potassium 3.1 mmol/L (3.5-5.1)
[2020-03-15] MEDS: HYDROcodone-ACET 5/325MG TAB PO PRN ×3 (08:26→17:41)
[2020-03-15 08:32] VITALS: BP 110/63
[2020-03-15] MEDS ORDERED: ASPI81CH43 PO (10:30)
[2020-03-15] MEDS ORDERED: APIX5TAB PO (10:30)
[2020-03-15] MEDS ORDERED: POTASSIUM CHL 20 Meq TABLET PO ONE (10:30)
[2020-03-15] MEDS ORDERED: POTA-180 PO (10:37)
[2020-03-15] MEDS ORDERED: FURO1TAB31 PO (10:37)
[2020-03-15] MEDS: ASPirin 81 mg TAB PO SCH (10:52)
[2020-03-15] MEDS: MAGNESIUM OXIDE 400 MG TAB PO SCH ×2 (10:52→21:41)
[2020-03-15] MEDS: ENOXAPARIN SOD 150 MG/1 ML SYRINGE SC SCH (10:53)
[2020-03-15] MEDS: PANTOPRAZOLE 40 MG/10 ML VIAL INJ IV SCH (10:53)
[2020-03-15 12:45] VITALS: BP 100/50
[2020-03-15 15:12] VITALS: BP 96/67
[2020-03-15 16:22] VITALS: BP 95/55
[2020-03-15] MEDS: APIXABAN 5 MG TAB PO SCH (21:41)
[2020-03-15] MEDS ORDERED: APIXABAN 5 MG TAB PO SCH (22:00)
[2020-03-15 22:29] VITALS: BP 119/71
[2020-03-16] MEDS: IPRATROPIUM BROM 0.5 MG/2.5ML INH SOL NEB SCH ×5 (02:13→18:25)
[2020-03-16] MEDS: ALBUTEROL SULF 2.5 MG/0.5ML(0.5%) NEB SOLN NEB SCH ×5 (02:13→18:25)
[2020-03-16 05:08] VITALS: BP 126/86
[2020-03-16] MEDS: FUROSEMIDE 40 MG/4 ML VIAL IV SCH ×2 (06:23→18:00)
[2020-03-16] MEDS: HYDROcodone-ACET 5/325MG TAB PO PRN (06:24)
[2020-03-16 09:00] VITALS: BP 111/70
[2020-03-16] MEDS: APIXABAN 5 MG TAB PO SCH (10:28)
[2020-03-16] MEDS: PANTOPRAZOLE 40 MG/10 ML VIAL INJ IV SCH (10:28)
[2020-03-16] MEDS: MAGNESIUM OXIDE 400 MG TAB PO SCH (10:28)
[2020-03-16] MEDS: ASPirin 81 mg TAB PO SCH (10:29)
[2020-03-16 13:00] VITALS: BP 105/66
[2020-03-16 15:21] VITALS: BP 105/66
[2020-03-16 16:32] VITALS: BP 111/77
[2020-03-22] MEDS ORDERED: APIXABAN 5 MG TAB PO SCH (22:00)
== END 2020-03-16 20:45 | disposition home or self-care (01) | DRG 134 ==
LOC: EDBD 22:25 → ER 22:32 → TELE 22:33 → TELE-CENTR 03-13 04:47
PROVIDERS: ADMIT Nurse Practitioner; ATTEND Internal Medicine
DX: I26.99 Other pulmonary embolism without acute cor pulmonale (principal); I21.A1 Myocardial infarction type 2; J96.00 Acute respiratory failure, unspecified whether with hypoxia or hypercapnia; I13.0 Hypertensive heart and chronic kidney disease with heart failure and stage 1 through stage 4 chronic kidney disease, or unspecified chronic kidney disease; I50.33 Acute on chronic diastolic (congestive) heart failure; K56.600 Partial intestinal obstruction, unspecified as to cause; R55 Syncope and collapse; G89.29 Other chronic pain; N18.9 Chronic kidney disease, unspecified; R10.9 Unspecified abdominal pain; R79.89 Other specified abnormal findings of blood chemistry; K76.0 Fatty (change of) liver, not elsewhere classified; E86.0 Dehydration; E87.6 Hypokalemia; E83.42 Hypomagnesemia; E66.01 Morbid (severe) obesity due to excess calories; Z79.899 Other long term (current) drug therapy; Z90.49 Acquired absence of other specified parts of digestive tract; Z82.49 Family history of ischemic heart disease and other diseases of the circulatory system; Z80.1 Family history of malignant neoplasm of trachea, bronchus and lung; Z68.42 Body mass index [BMI] 45.0-49.9, adult; Z80.7 Family history of other malignant neoplasms of lymphoid, hematopoietic and related tissues
CPT/HCPCS: 36415; 36600; 70450; 71045; 71275; 74176; 80048; 80053; 81001; 82805; 82962; 83605; 83735; 83880; 84443; 84484; 85025; 85379; 85610; 85730; 87081; 87493; 93005; 93306; 93970; 94640; 94660; 96360; 96361; C9113; G0378; J0153; J2001

== ENCOUNTER 2020-03-23 12:56 | Inpatient (IN) | payer MEDICAID ==
[~2020-03-23] VITALS: Ht 157.5 cm; Wt 133.2 kg
[~2020-03-23 12:56] MED LIST changes: +APIX5TAB PO; +ASPI81CH43 PO; +FURO1TAB31 PO; +IBUP800T24 PO; -LEVO500T21 PO; +LISI-646 PO; -METR500T PO; -PANT1INJ3 PO; +POTA-180 PO
[2020-03-23] MEDS ORDERED: SODIUM CHLORIDE 0.9% 1,000 ML IVB ONE (13:33)
[2020-03-23] MEDS ORDERED: PROMETHAZINE HCL 25 MG/ML 1ML IV PRN (13:45)
[2020-03-23 15:01] LABS: Basophils # (auto) 0 10 ^3/uL (0-0.2); Eosinophils # (auto) 0 10 ^3/uL (0-0.8); Lymphocytes # (auto) 1.3 10 ^3/uL (0.4-5.4); Monocytes # (auto) 1.1 10 ^3/uL (0-1.3)
[2020-03-23 15:03] LABS: Basophils % (auto) 0.3 % (0.0-2.0); Eosinophils % (auto) 0.1 % (0.0-7.0); Hematocrit 39.7 % (36.0-46.0); Hemoglobin 12.1 g/dL (12.2-16.2); Lymphocytes % (auto) 8.7 % (10.0-50.0); Mean Corpuscular Hemoglobin 28.3 pg (28.0-32.0); Mean Corpuscular Hgb Conc. 30.4 g/dL (32.0-36.0); Mean Corpuscular Volume 93.3 fL (80.0-100.0); Neutrophils # (auto) 12.7 10 ^3/uL (1.6-8.6); Neutrophils % (auto) 83.9 % (37.0-80.0); Nucleated Red Blood Cells % 0.1 %; Platelet Count (auto) 279 10^3/uL (140-450); Red Blood Cells 4.26 10^6/uL (4.0-5.20); Red Cell Distribution Width 19.6 % (11.8-14.3); White Blood Cell 15.1 10^3/uL (4.4-10.8)
[2020-03-23 15:17] LABS: Albumin 2.1 g/dL (3.4-5.0); Amylase 110 U/L (25-115); Anion Gap 8 (5-15); Aspartate Aminotransferase 32 U/L (15-37); BUN/Creatinine Ratio 24.5; Blood Urea Nitrogen 23 mg/dL (7-18); Calcium 7.8 mg/dL (8.5-10.1); Carbon Dioxide 32 mmol/L (21-32); Chloride 92 mmol/L (98-107); GFR African American 77 mL/min; GFR Non-African American 64 mL/min; Glucose 90 mg/dL (74-106); Lipase 82 U/L (73-393); Magnesium 1.3 mg/dL (1.6-2.6); Potassium 4.2 mmol/L (3.5-5.1); Sodium 132 mmol/L (136-145)
[2020-03-23 15:26] LABS: Alanine Aminotransferase 15 U/L (13-56); Alkaline Phosphatase 79 U/L (45-117); Bilirubin, Total 0.9 mg/dL (0.2-1.0); Total Protein 7.6 g/dL (6.4-8.2)
[2020-03-23] MEDS ORDERED: cefTRIAXone 1GM/50ML D5W 50 ML IV ONE (15:30)
[2020-03-23 18:29] LABS: Urine Bacteria FEW /hpf (None Seen); Urine Blood Negative /uL (Negative); Urine Mucus FEW (None Seen); Urine Specific Gravity 1.025 (1.001-1.035); Urine WBC 5 /hpf (0 - 5)
[2020-03-23] MEDS ORDERED: ONDANSETRON HCL 4 MG/2 ML VIAL IV PRN (19:30)
[2020-03-23] MEDS ORDERED: NITROGLYCERIN 0.4 MG SL TAB SL PRN (19:30)
[2020-03-23] MEDS ORDERED: MORPHINE SULF INJ 2 MG/ML SYRINGE 1ML IV PRN (19:30)
[2020-03-23 20:08] LABS: CRP High Sensitivity 16.7 mg/dL (< 0.3)
[2020-03-23] MEDS: SOD CHL 0.9%/ KCL 20MEQ 1,000 ML IV SCH (20:14)
[2020-03-23] MEDS: LORazepam 2MG/ML-1ML VIAL IV PRN (20:15)
[2020-03-23 20:50] VITALS: BP 138/95
[2020-03-23] MEDS: MAGNESIUM SULFATE 1GM/100ML 100 ML IV SCH ×2 (21:48→23:12)
[2020-03-23] MEDS: METOCLOPRAMIDE HCL 5MG/ml INJ 2ml VIAL IV SCH (22:19)
[2020-03-23] MEDS: PIPERACILLIN-TAZOB 3.375GM 100 ML IV SCH (23:44)
[2020-03-24] MEDS: SOD CHL 0.9%/ KCL 20MEQ 1,000 ML IV SCH ×3 (03:52→20:30)
[2020-03-24 04:00] VITALS: BP 118/77
[2020-03-24] MEDS: METOCLOPRAMIDE HCL 5MG/ml INJ 2ml VIAL IV SCH ×3 (06:16→21:13)
[2020-03-24] MEDS: PIPERACILLIN-TAZOB 3.375GM 100 ML IV SCH ×3 (06:16→17:50)
[2020-03-24 06:47] LABS: Basophils # (auto) 0.1 10 ^3/uL (0-0.2); Hemoglobin 10.5 g/dL (12.2-16.2); Mean Corpuscular Volume 92.1 fL (80.0-100.0); Monocytes # (auto) 1.1 10 ^3/uL (0-1.3); Platelet Count (auto) 323 10^3/uL (140-450)
[2020-03-24 06:48] LABS: Basophils % (auto) 0.8 % (0.0-2.0); Eosinophils # (auto) 0.1 10 ^3/uL (0-0.8); Eosinophils % (auto) 0.9 % (0.0-7.0); Hematocrit 34.5 % (36.0-46.0); Lymphocytes # (auto) 1.7 10 ^3/uL (0.4-5.4); Lymphocytes % (auto) 12.2 % (10.0-50.0); Mean Corpuscular Hgb Conc. 30.4 g/dL (32.0-36.0); Neutrophils # (auto) 11.1 10 ^3/uL (1.6-8.6); Neutrophils % (auto) 78.1 % (37.0-80.0); Nucleated Red Blood Cells % 0.3 %; Red Blood Cells 3.74 10^6/uL (4.0-5.20); Red Cell Distribution Width 19.3 % (11.8-14.3); White Blood Cell 14.2 10^3/uL (4.4-10.8)
[2020-03-24 07:07] LABS: Albumin 1.9 g/dL (3.4-5.0); BUN/Creatinine Ratio 21.8; Calcium 7.3 mg/dL (8.5-10.1); Potassium 3.8 mmol/L (3.5-5.1)
[2020-03-24 07:09] LABS: Bilirubin, Total 0.8 mg/dL (0.2-1.0)
[2020-03-24 09:00] VITALS: BP 131/77
[2020-03-24] MEDS: PANTOPRAZOLE 40 MG/10 ML VIAL INJ IV SCH (10:24)
[2020-03-24] MEDS: ENOXAPARIN SOD 40 MG/0.4 ML SYRINGE SC SCH (10:24)
[2020-03-24 13:00] VITALS: BP 120/87
[2020-03-24] MEDS: MORPHINE SULF INJ 2 MG/ML SYRINGE 1ML IV PRN ×2 (13:47→20:12)
[2020-03-24 22:20] VITALS: BP 122/74
[2020-03-24] MEDS ORDERED: ADENOSINE 6 MG/2 ML INJ IV ONE ×2 (22:26→22:45)
[2020-03-25] MEDS: PIPERACILLIN-TAZOB 3.375GM 100 ML IV SCH ×4 (00:09→17:41)
[2020-03-25] MEDS: SOD CHL 0.9%/ KCL 20MEQ 1,000 ML IV SCH ×3 (00:09→21:30)
[2020-03-25] MEDS: MORPHINE SULF INJ 2 MG/ML SYRINGE 1ML IV PRN ×5 (00:28→20:55)
[2020-03-25] MEDS: METOCLOPRAMIDE HCL 5MG/ml INJ 2ml VIAL IV SCH ×3 (05:36→22:04)
[2020-03-25 05:38] VITALS: BP 129/72
[2020-03-25 05:59] LABS: Eosinophils # (auto) 0.2 10 ^3/uL (0-0.8); Lymphocytes # (auto) 1.2 10 ^3/uL (0.4-5.4)
[2020-03-25 06:02] LABS: Basophils # (auto) 0.1 10 ^3/uL (0-0.2); Basophils % (auto) 0.7 % (0.0-2.0); Eosinophils % (auto) 2.1 % (0.0-7.0); Hematocrit 32.2 % (36.0-46.0); Hemoglobin 9.8 g/dL (12.2-16.2); Lymphocytes % (auto) 12.7 % (10.0-50.0); Mean Corpuscular Hemoglobin 28.7 pg (28.0-32.0); Mean Corpuscular Hgb Conc. 30.6 g/dL (32.0-36.0); Mean Corpuscular Volume 93.9 fL (80.0-100.0); Monocytes # (auto) 0.8 10 ^3/uL (0-1.3); Monocytes % (auto) 7.8 % (0.0-12.0); Neutrophils # (auto) 7.3 10 ^3/uL (1.6-8.6); Neutrophils % (auto) 76.7 % (37.0-80.0); Nucleated Red Blood Cells % 0.2 %; Platelet Count (auto) 309 10^3/uL (140-450); Red Blood Cells 3.43 10^6/uL (4.0-5.20); Red Cell Distribution Width 19.4 % (11.8-14.3); White Blood Cell 9.6 10^3/uL (4.4-10.8)
[2020-03-25 06:22] LABS: Potassium 3.8 mmol/L (3.5-5.1)
[2020-03-25 06:30] LABS: Albumin 1.8 g/dL (3.4-5.0); BUN/Creatinine Ratio 20.5; Bilirubin, Total 0.7 mg/dL (0.2-1.0); Total Protein 6.5 g/dL (6.4-8.2)
[2020-03-25] MEDS ORDERED: GASTROGRAFIN 120 ML SOL ONE (08:14)
[2020-03-25 09:01] VITALS: BP 134/80
[2020-03-25] MEDS ORDERED: MAGNESIUM SULFATE 1GM/100ML 100 ML IV ONE (10:00)
[2020-03-25] MEDS: PANTOPRAZOLE 40 MG/10 ML VIAL INJ IV SCH (10:56)
[2020-03-25] MEDS: ENOXAPARIN SOD 40 MG/0.4 ML SYRINGE SC SCH (10:57)
[2020-03-25] MEDS: METOPROLOL TARTRATE 1MG/1ML-5ML VIAL IV SCH ×2 (12:53→17:42)
[2020-03-25 13:08] VITALS: BP 149/90
[2020-03-25 17:01] VITALS: BP 139/85
[2020-03-25 22:09] VITALS: BP 121/81
[2020-03-26] MEDS: PIPERACILLIN-TAZOB 3.375GM 100 ML IV SCH ×5 (00:05→23:41)
[2020-03-26] MEDS: METOPROLOL TARTRATE 1MG/1ML-5ML VIAL IV SCH ×5 (00:05→23:48)
[2020-03-26] MEDS: MORPHINE SULF INJ 2 MG/ML SYRINGE 1ML IV PRN ×3 (00:06→21:22)
[2020-03-26 05:00] VITALS: BP 98/75
[2020-03-26] MEDS: SOD CHL 0.9%/ KCL 20MEQ 1,000 ML IV SCH ×2 (05:50→12:16)
[2020-03-26] MEDS: METOCLOPRAMIDE HCL 5MG/ml INJ 2ml VIAL IV SCH ×3 (06:01→21:22)
[2020-03-26 07:17] LABS: Basophils # (auto) 0.1 10 ^3/uL (0-0.2); Eosinophils # (auto) 0.1 10 ^3/uL (0-0.8); Eosinophils % (auto) 1.4 % (0.0-7.0); Lymphocytes # (auto) 0.7 10 ^3/uL (0.4-5.4); Monocytes # (auto) 0.6 10 ^3/uL (0-1.3); Monocytes % (auto) 7.7 % (0.0-12.0); Neutrophils # (auto) 6.8 10 ^3/uL (1.6-8.6); White Blood Cell 8.3 10^3/uL (4.4-10.8)
[2020-03-26 07:19] LABS: Basophils % (auto) 0.6 % (0.0-2.0); Hematocrit 34.1 % (36.0-46.0); Hemoglobin 10.3 g/dL (12.2-16.2); Lymphocytes % (auto) 8.3 % (10.0-50.0); Mean Corpuscular Hemoglobin 28.3 pg (28.0-32.0); Mean Corpuscular Hgb Conc. 30.2 g/dL (32.0-36.0); Nucleated Red Blood Cells % 0.3 %; Platelet Count (auto) 365 10^3/uL (140-450); Red Blood Cells 3.63 10^6/uL (4.0-5.20); Red Cell Distribution Width 19.8 % (11.8-14.3)
[2020-03-26 07:33] LABS: Calcium 8.6 mg/dL (8.5-10.1)
[2020-03-26 07:35] LABS: BUN/Creatinine Ratio 18.9
[2020-03-26 08:51] VITALS: BP 135/83
[2020-03-26] MEDS ORDERED: ADENOSINE 6 MG/2 ML INJ IV ONE ×2 (09:45)
[2020-03-26] MEDS: ENOXAPARIN SOD 40 MG/0.4 ML SYRINGE SC SCH (10:04)
[2020-03-26] MEDS: PANTOPRAZOLE 40 MG/10 ML VIAL INJ IV SCH (10:07)
[2020-03-26] MEDS ORDERED: ADENOSINE 6 MG/2 ML INJ IV PRN ×2 (10:45)
[2020-03-26 13:00] VITALS: BP 117/69
[2020-03-26 16:30] VITALS: BP 136/79
[2020-03-26 22:00] VITALS: BP 120/73
[2020-03-27] MEDS: MORPHINE SULF INJ 2 MG/ML SYRINGE 1ML IV PRN ×3 (00:50→21:12)
[2020-03-27] MEDS: LORazepam 2MG/ML-1ML VIAL IV PRN ×2 (02:34→18:31)
[2020-03-27] MEDS: SOD CHL 0.9%/ KCL 20MEQ 1,000 ML IV SCH ×3 (02:43→21:21)
[2020-03-27 05:00] VITALS: BP 137/68
[2020-03-27] MEDS: PIPERACILLIN-TAZOB 3.375GM 100 ML IV SCH ×3 (05:04→18:31)
[2020-03-27] MEDS: METOCLOPRAMIDE HCL 5MG/ml INJ 2ml VIAL IV SCH ×3 (05:05→21:12)
[2020-03-27] MEDS: METOPROLOL TARTRATE 1MG/1ML-5ML VIAL IV SCH ×3 (05:27→18:31)
[2020-03-27 05:52] LABS: Basophils # (auto) 0 10 ^3/uL (0-0.2); Eosinophils # (auto) 0.2 10 ^3/uL (0-0.8); Monocytes # (auto) 0.7 10 ^3/uL (0-1.3)
[2020-03-27 05:57] LABS: Basophils % (auto) 0.5 % (0.0-2.0); Eosinophils % (auto) 2.6 % (0.0-7.0); Hematocrit 32.9 % (36.0-46.0); Hemoglobin 10.1 g/dL (12.2-16.2); Lymphocytes % (auto) 11.8 % (10.0-50.0); Mean Corpuscular Hemoglobin 28.6 pg (28.0-32.0); Mean Corpuscular Hgb Conc. 30.7 g/dL (32.0-36.0); Mean Corpuscular Volume 93.2 fL (80.0-100.0); Monocytes % (auto) 8.5 % (0.0-12.0); Neutrophils # (auto) 6.4 10 ^3/uL (1.6-8.6); Neutrophils % (auto) 76.6 % (37.0-80.0); Platelet Count (auto) 358 10^3/uL (140-450); Red Blood Cells 3.53 10^6/uL (4.0-5.20); White Blood Cell 8.4 10^3/uL (4.4-10.8)
[2020-03-27 06:01] LABS: BUN/Creatinine Ratio 17.8; Calcium 8.6 mg/dL (8.5-10.1); Magnesium 1.7 mg/dL (1.6-2.6); Potassium 3.9 mmol/L (3.5-5.1)
[2020-03-27 08:00] VITALS: BP 147/99
[2020-03-27 08:56] VITALS: BP 147/99
[2020-03-27] MEDS: ENOXAPARIN SOD 40 MG/0.4 ML SYRINGE SC SCH (12:21)
[2020-03-27] MEDS: PANTOPRAZOLE 40 MG/10 ML VIAL INJ IV SCH (12:21)
[2020-03-27 13:00] VITALS: BP 151/94
[2020-03-27] MEDS: MAGNESIUM SULFATE 1GM/100ML 100 ML IV ONE ×2 (13:00→15:05)
[2020-03-27 16:59] VITALS: BP 118/81
[2020-03-27] MEDS ORDERED: SODIUM CHLORIDE 0.9% 3,750 ML IV ONE (18:30)
[2020-03-27 22:00] VITALS: BP 139/92
[2020-03-28] MEDS: METOPROLOL TARTRATE 1MG/1ML-5ML VIAL IV SCH ×4 (00:03→18:00)
[2020-03-28] MEDS: PIPERACILLIN-TAZOB 3.375GM 100 ML IV SCH ×4 (00:03→18:00)
[2020-03-28 05:00] VITALS: BP 141/95
[2020-03-28] MEDS: METOCLOPRAMIDE HCL 5MG/ml INJ 2ml VIAL IV SCH ×3 (06:01→22:31)
[2020-03-28] MEDS: SOD CHL 0.9%/ KCL 20MEQ 1,000 ML IV SCH ×2 (06:01→12:15)
[2020-03-28 06:46] LABS: Hemoglobin 10.2 g/dL (12.2-16.2)
[2020-03-28 06:49] LABS: Hematocrit 33.3 % (36.0-46.0)
[2020-03-28 07:07] LABS: Magnesium 1.9 mg/dL (1.6-2.6); Potassium 3.9 mmol/L (3.5-5.1)
[2020-03-28 08:58] VITALS: BP 137/84
[2020-03-28] MEDS: ENOXAPARIN SOD 40 MG/0.4 ML SYRINGE SC SCH (10:00)
[2020-03-28] MEDS: PANTOPRAZOLE 40 MG/10 ML VIAL INJ IV SCH (10:00)
[2020-03-28] MEDS ORDERED: MAGNESIUM SULFATE 1GM/100ML 100 ML IV ONE (12:15)
[2020-03-28] MEDS ORDERED: GOLYTELY 4L KIT PO ONE (12:15)
[2020-03-28] MEDS ORDERED: POTASSIUM CHL 20 Meq TABLET PO ONE (12:15)
[2020-03-28 13:00] VITALS: BP 142/86
[2020-03-28 20:01] LABS: INR 1.15 (0.9-1.15); Partial Thromboplastin Time 25.7 sec (23.64-32.05)
[2020-03-28 20:24] VITALS: BP 110/80
[2020-03-28] MEDS ORDERED: MAGNESIUM CITRATE SOLUTION 300 ML BTL PO ONE (22:00)
[2020-03-29] VITALS (7 sets, daily range): BP systolic 117–141; BP diastolic 66–88
[2020-03-29] MEDS: PIPERACILLIN-TAZOB 3.375GM 100 ML IV SCH ×4 (00:21→17:33)
[2020-03-29] MEDS: METOPROLOL TARTRATE 1MG/1ML-5ML VIAL IV SCH ×4 (00:29→17:34)
[2020-03-29] MEDS: SOD CHL 0.9%/ KCL 20MEQ 1,000 ML IV SCH ×2 (02:33→16:51)
[2020-03-29] MEDS: METOCLOPRAMIDE HCL 5MG/ml INJ 2ml VIAL IV SCH ×3 (05:58→22:00)
[2020-03-29] MEDS ORDERED: MAGNESIUM CITRATE SOLUTION 300 ML BTL PO ONE (06:00)
[2020-03-29 07:24] LABS: Calcium 8.7 mg/dL (8.5-10.1); Potassium 3.9 mmol/L (3.5-5.1)
[2020-03-29 07:26] LABS: BUN/Creatinine Ratio 16.9
[2020-03-29 07:54] LABS: Basophils # (auto) 0.1 10 ^3/uL (0-0.2); Basophils % (auto) 1.4 % (0.0-2.0); Eosinophils # (auto) 0.2 10 ^3/uL (0-0.8); Eosinophils % (auto) 2.7 % (0.0-7.0); Hematocrit 36.3 % (36.0-46.0); Hemoglobin 10.7 g/dL (12.2-16.2); Lymphocytes # (auto) 1.3 10 ^3/uL (0.4-5.4); Lymphocytes % (auto) 15.4 % (10.0-50.0); Mean Corpuscular Hemoglobin 28.5 pg (28.0-32.0); Mean Corpuscular Hgb Conc. 29.3 g/dL (32.0-36.0); Mean Corpuscular Volume 97.3 fL (80.0-100.0); Monocytes # (auto) 0.7 10 ^3/uL (0-1.3); Neutrophils # (auto) 5.9 10 ^3/uL (1.6-8.6); Neutrophils % (auto) 72.5 % (37.0-80.0); Nucleated Red Blood Cells % 0.1 %; Platelet Count (auto) 331 10^3/uL (140-450); Red Blood Cells 3.73 10^6/uL (4.0-5.20); Red Cell Distribution Width 19.9 % (11.8-14.3); White Blood Cell 8.1 10^3/uL (4.4-10.8)
[2020-03-29] MEDS ORDERED: SODIUM CHLORIDE LOCK 10 ML ONE (08:16)
[2020-03-29] MEDS ORDERED: diphenhdrAMINE HCL 50 MG/1 ML VL ONE (08:16)
[2020-03-29] MEDS: PANTOPRAZOLE 40 MG/10 ML VIAL INJ IV SCH (08:36)
[2020-03-29] MEDS: ENOXAPARIN SOD 40 MG/0.4 ML SYRINGE SC SCH (10:00)
[2020-03-29] MEDS: fentaNYL CITRATE 100 MCG/2 ML VL ONE ×2 (14:57→15:02)
[2020-03-29] MEDS: MIDAZOLAM HCL 5 MG/ML-1ML VIAL ONE ×2 (14:57→15:02)
[2020-03-30] VITALS (7 sets, daily range): BP systolic 117–133; BP diastolic 67–88
[2020-03-30] MEDS: PIPERACILLIN-TAZOB 3.375GM 100 ML IV SCH ×4 (00:17→17:27)
[2020-03-30] MEDS: HYDROcodone-ACET 5/325MG TAB PO PRN ×3 (02:45→19:38)
[2020-03-30] MEDS: METOCLOPRAMIDE HCL 5MG/ml INJ 2ml VIAL IV SCH ×3 (06:00→21:29)
[2020-03-30] MEDS: METOPROLOL TARTRATE 1MG/1ML-5ML VIAL IV SCH ×4 (06:19→17:27)
[2020-03-30] MEDS: SOD CHL 0.9%/ KCL 20MEQ 1,000 ML IV SCH ×2 (07:02→21:16)
[2020-03-30 07:35] LABS: BUN/Creatinine Ratio 18.8; Calcium 8.5 mg/dL (8.5-10.1); Potassium 3.5 mmol/L (3.5-5.1)
[2020-03-30] MEDS: PANTOPRAZOLE 40 MG/10 ML VIAL INJ IV SCH (10:05)
[2020-03-30] MEDS: ENOXAPARIN SOD 40 MG/0.4 ML SYRINGE SC SCH (10:05)
[2020-03-30] MEDS: TEMAZEPAM 15 MG CAP PO PRN (21:34)
[2020-03-31] VITALS (7 sets, daily range): BP systolic 122–140; BP diastolic 76–93
[2020-03-31] MEDS: PIPERACILLIN-TAZOB 3.375GM 100 ML IV SCH ×4 (00:09→17:43)
[2020-03-31] MEDS: METOPROLOL TARTRATE 1MG/1ML-5ML VIAL IV SCH ×4 (00:15→17:43)
[2020-03-31] MEDS: METOCLOPRAMIDE HCL 5MG/ml INJ 2ml VIAL IV SCH ×3 (05:38→21:45)
[2020-03-31] MEDS: HYDROcodone-ACET 5/325MG TAB PO PRN ×2 (05:50→18:08)
[2020-03-31] MEDS: PANTOPRAZOLE 40 MG/10 ML VIAL INJ IV SCH (09:44)
[2020-03-31] MEDS: SOD CHL 0.9%/ KCL 20MEQ 1,000 ML IV SCH (09:44)
[2020-03-31] MEDS: APIXABAN 5 MG TAB PO SCH ×2 (09:44→21:45)
[2020-03-31] MEDS ORDERED: HYDROmorphone HCL 2 MG/ML VL IV PRN (21:15)
[2020-03-31] MEDS: DOCUSATE SOD 100 MG CAP PO SCH (21:45)
[2020-04-01] VITALS (7 sets, daily range): BP systolic 113–146; BP diastolic 57–99
[2020-04-01] MEDS: METOPROLOL TARTRATE 1MG/1ML-5ML VIAL IV SCH ×3 (00:17→12:28)
[2020-04-01] MEDS: PIPERACILLIN-TAZOB 3.375GM 100 ML IV SCH ×3 (00:18→12:29)
[2020-04-01] MEDS: SOD CHL 0.9%/ KCL 20MEQ 1,000 ML IV SCH (01:58)
[2020-04-01] MEDS: METOCLOPRAMIDE HCL 5MG/ml INJ 2ml VIAL IV SCH ×2 (05:26→15:11)
[2020-04-01] MEDS: PANTOPRAZOLE 40 MG/10 ML VIAL INJ IV SCH (10:00)
[2020-04-01] MEDS: DOCUSATE SOD 100 MG CAP PO SCH ×2 (10:23→22:00)
[2020-04-01] MEDS: APIXABAN 5 MG TAB PO SCH ×2 (10:23→22:00)
[2020-04-01] MEDS ORDERED: FLUCONAZOLE 100 MG TAB PO ONE (14:00)
[2020-04-01] MEDS ORDERED: FLUCONAZOLE 200MG/100ML 100 ML IV ONE (15:00)
[2020-04-01] MEDS ORDERED: cefTRIAXone 1GM/50ML D5W 50 ML IV ONE (17:00)
[2020-04-01] MEDS: HYDROcodone-ACET 5/325MG TAB PO PRN (20:03)
[2020-04-01] MEDS: METOPROLOL TARTRATE 25 MG TAB PO SCH (22:01)
[2020-04-02] MEDS: TEMAZEPAM 15 MG CAP PO PRN (00:19)
[2020-04-02 05:00] VITALS: BP 123/84
[2020-04-02] MEDS: HYDROcodone-ACET 5/325MG TAB PO PRN ×2 (06:35→12:30)
[2020-04-02 07:21] LABS: Magnesium 1.2 mg/dL (1.6-2.6)
[2020-04-02 09:00] VITALS: BP 124/72
[2020-04-02] MEDS ORDERED: cefTRIAXone 1GM/50ML D5W 50 ML IV SCH (09:00)
[2020-04-02] MEDS ORDERED: FLUCONAZOLE 100 MG TAB PO SCH (10:00)
[2020-04-02] MEDS ORDERED: FLUCONAZOLE 200MG/100ML 100 ML IV SCH (10:00)
[2020-04-02] MEDS ORDERED: PANTOPRAZOLE 40 MG TAB PO SCH (10:00)
[2020-04-02] MEDS: DOCUSATE SOD 100 MG CAP PO SCH (10:00)
[2020-04-02] MEDS: APIXABAN 5 MG TAB PO SCH (11:14)
[2020-04-02] MEDS: METOPROLOL TARTRATE 25 MG TAB PO SCH (11:20)
[2020-04-02 13:00] VITALS: BP 122/54
[2020-04-02] MEDS ORDERED: PANT40T PO (13:42)
[2020-04-02] MEDS ORDERED: MET25T PO (13:42)
[2020-04-02] MEDS ORDERED: FLUC200T35 PO (13:42)
[2020-04-02] MEDS ORDERED: MAGNESIUM SULFATE 1GM/100ML 100 ML IV SCH (14:00)
[2020-04-02 14:46] VITALS: BP 122/54
[2020-04-02 17:00] VITALS: BP 115/79
[2020-04-03] MEDS ORDERED: FLUCONAZOLE 100 MG TAB PO SCH (10:00)
== END 2020-04-02 17:34 | disposition home or self-care (01) | DRG 720 ==
LOC: ER 12:56 → EDBD 12:56 → TELE 12:57 → TELE-EAST 20:45 → TELE-CENTR 03-24 15:51
PROVIDERS: ADMIT Nurse Practitioner Acute Care; ATTEND Internal Medicine
PROC: 0D9670Z Drainage of Stomach with Drainage Device, Via Natural or Artificial Opening (ICD-10-PCS; 2020-03-24)
PROC: 0DBK8ZX Excision of Ascending Colon, Via Natural or Artificial Opening Endoscopic, Diagnostic (ICD-10-PCS; 2020-03-29)
PROC: 0DBH8ZX Excision of Cecum, Via Natural or Artificial Opening Endoscopic, Diagnostic (ICD-10-PCS; 2020-03-29)
PROC: 0DBN8ZZ Excision of Sigmoid Colon, Via Natural or Artificial Opening Endoscopic (ICD-10-PCS; principal; 2020-03-29 14:52)
DX: A41.9 Sepsis, unspecified organism (principal); J69.0 Pneumonitis due to inhalation of food and vomit; J90 Pleural effusion, not elsewhere classified; K56.600 Partial intestinal obstruction, unspecified as to cause; E66.01 Morbid (severe) obesity due to excess calories; E83.42 Hypomagnesemia; K56.7 Ileus, unspecified; E88.09 Other disorders of plasma-protein metabolism, not elsewhere classified; K76.0 Fatty (change of) liver, not elsewhere classified; R19.7 Diarrhea, unspecified; R09.02 Hypoxemia; I47.1 Supraventricular tachycardia; I10 Essential (primary) hypertension; K57.90 Diverticulosis of intestine, part unspecified, without perforation or abscess without bleeding; K63.5 Polyp of colon; K64.8 Other hemorrhoids; Z20.828 Contact with and (suspected) exposure to other viral communicable diseases; M48.061 Spinal stenosis, lumbar region without neurogenic claudication; N83.201 Unspecified ovarian cyst, right side; Z85.71 Personal history of Hodgkin lymphoma; Z74.01 Bed confinement status; Z86.711 Personal history of pulmonary embolism; Z68.43 Body mass index [BMI] 50.0-59.9, adult; Z82.3 Family history of stroke; Z79.01 Long term (current) use of anticoagulants; Z79.82 Long term (current) use of aspirin; Z80.1 Family history of malignant neoplasm of trachea, bronchus and lung; Z80.7 Family history of other malignant neoplasms of lymphoid, hematopoietic and related tissues; Z90.49 Acquired absence of other specified parts of digestive tract; Z79.899 Other long term (current) drug therapy; B37.49 Other urogenital candidiasis
CPT/HCPCS: 36415; 45380; 45385; 51702; 71045; 74018; 74176; 74250; 80048; 80053; 81001; 82150; 82378; 82728; 83605; 83615; 83690; 83735; 83880; 84132; 84443; 84484; 85014; 85018; 85025; 85379; 85610; 85730; 86141; 87040; 87070; 87081; 87086; 87088; 87804; 87880; 93005; 96365; 96366; 96375; 97110; 97530; C9113; G0378; J0153; J0696; J1450; J2250; J2405; J2543

== ENCOUNTER 2020-04-04 16:59 | Inpatient (IN) | payer SELFPAY ==
[~2020-04-04] VITALS: Ht 160 cm; Wt 112.2 kg
[~2020-04-04 16:59] MED LIST changes: +FLUC200T35 PO; -LISI-646 PO; +MET25T PO; +PANT40T PO
[2020-04-04] MEDS ORDERED: cefTRIAXone 1GM/50ML D5W 50 ML IV ONE (17:15)
[2020-04-04] MEDS ORDERED: AZITHROMYCIN 500MG/ 250ML 250 ML IV ONE (17:15)
[2020-04-04] MEDS ORDERED: NITROGLYCERIN 0.4 MG SL TAB SL PRN ×2 (19:00→20:00)
[2020-04-04] MEDS ORDERED: MORPHINE SULF INJ 2 MG/ML SYRINGE 1ML IV PRN ×3 (19:00→20:00)
[2020-04-04] MEDS ORDERED: CLOTRIMAZOLE 1 % CREAM 15GM TOP ONE (20:00)
[2020-04-04] MEDS ORDERED: MAGNESIUM SULFATE 1GM/100ML 100 ML IV ONE (20:00)
[2020-04-04] MEDS ORDERED: DOCUSATE SOD 100 MG CAP PO PRN (20:00)
[2020-04-04] MEDS ORDERED: METOCLOPRAMIDE HCL 5MG/ml INJ 2ml VIAL IV PRN (20:00)
[2020-04-04] MEDS ORDERED: ALUM & MAG HYDROX-SIMETH LIQ(MAALOX) 30 ML PO PRN (20:00)
[2020-04-04 20:17] LABS: Basophils # (auto) 0.1 10 ^3/uL (0-0.2); Basophils % (auto) 0.7 % (0.0-2.0); Eosinophils # (auto) 0.1 10 ^3/uL (0-0.8); Eosinophils % (auto) 1.5 % (0.0-7.0); Hematocrit 29.4 % (36.0-46.0); Hemoglobin 8.9 g/dL (12.2-16.2); Lymphocytes # (auto) 1.1 10 ^3/uL (0.4-5.4); Lymphocytes % (auto) 11.7 % (10.0-50.0); Mean Corpuscular Hemoglobin 28.1 pg (28.0-32.0); Mean Corpuscular Hgb Conc. 30.4 g/dL (32.0-36.0); Mean Corpuscular Volume 92.6 fL (80.0-100.0); Monocytes # (auto) 0.8 10 ^3/uL (0-1.3); Monocytes % (auto) 8.4 % (0.0-12.0); Neutrophils # (auto) 7.3 10 ^3/uL (1.6-8.6); Neutrophils % (auto) 77.7 % (37.0-80.0); Nucleated Red Blood Cells % 0.1 %; Platelet Count (auto) 254 10^3/uL (140-450); Red Blood Cells 3.17 10^6/uL (4.0-5.20); Red Cell Distribution Width 18.4 % (11.8-14.3); White Blood Cell 9.4 10^3/uL (4.4-10.8)
[2020-04-04] MEDS ORDERED: SODIUM CHLORIDE 0.9% 1,000 ML IV SCH (20:27)
[2020-04-04] MEDS ORDERED: MAGNESIUM OXIDE 400 MG TAB PO ONE (20:30)
[2020-04-04] MEDS ORDERED: ACETAMINOPHEN 500 MG TAB PO PRN (20:30)
[2020-04-04] MEDS ORDERED: DEXTROSE (50%) 50ML SYRG IV PRN (20:30)
[2020-04-04] MEDS ORDERED: FUROSEMIDE 20 MG/2 ML VIAL IV ONE (21:00)
[2020-04-04 21:07] LABS: Urine Bacteria NONE SEEN /hpf (None Seen); Urine Blood Negative /uL (Negative); Urine Hyaline Cast FEW /lpf (0 - 2); Urine Mucus FEW (None Seen); Urine Specific Gravity 1.025 (1.001-1.035); Urine WBC 5 /hpf (0 - 5)
[2020-04-04 21:08] LABS: INR 1.21 (0.9-1.15); Partial Thromboplastin Time 25.9 sec (23.64-32.05)
[2020-04-04 21:09] LABS: Albumin 1.8 g/dL (3.4-5.0)
[2020-04-04 21:15] LABS: BUN/Creatinine Ratio 22.6; Bilirubin, Total 0.4 mg/dL (0.2-1.0); Total Protein 5.8 g/dL (6.4-8.2)
[2020-04-04 21:17] LABS: Cholesterol 109 mg/dL (< 200); Magnesium 1.1 mg/dL (1.6-2.6)
[2020-04-04 21:20] LABS: HDL Cholesterol 52 mg/dL (40-59); LDL Cholesterol 42 mg/dL (< 100); Triglycerides 106 mg/dL (< 150)
[2020-04-04 21:26] LABS: CRP High Sensitivity 2.65 mg/dL (< 0.3)
[2020-04-04] MEDS: InsuLIN REG 1unit/0.01ml Soln (100units/ml) SC SCH (22:00)
[2020-04-04] MEDS: ALBUTEROL SULF HFA 90MCG INH 200DOSE IN SCH (22:00)
[2020-04-04] MEDS: ACCU-CHEK COMFORT CURVE STRIP VI SCH (22:00)
[2020-04-04] MEDS: ZINC SULFATE 220mg CAP or TAB PO SCH (22:11)
[2020-04-04] MEDS: CHOLECALCIFEROL (VITD3) 1,000IU=25mCg TAB PO SCH (22:11)
[2020-04-04] MEDS: DOXYCYCLINE 100 MG TAB/CAP PO SCH (22:11)
[2020-04-04] MEDS: APIXABAN 5 MG TAB PO SCH (22:12)
[2020-04-04] MEDS: ASCORBIC ACID 1,000 MG TAB PO SCH (22:12)
[2020-04-04] MEDS: METOPROLOL TARTRATE 25 MG TAB PO SCH (22:13)
[2020-04-04] MEDS: ATORVASTATIN 20 MG TAB PO SCH (22:13)
[2020-04-04] MEDS: CLOTRIMAZOLE 1 % CREAM 15GM TOP SCH (22:14)
[2020-04-04] MEDS: ASPirin 81 mg TAB PO SCH (22:15)
[2020-04-04 22:38] VITALS: BP 110/59
[2020-04-05] MEDS: ALBUTEROL SULF HFA 90MCG INH 200DOSE IN SCH (06:00)
[2020-04-05] MEDS ORDERED: FUROSEMIDE 20 MG/2 ML VIAL IV SCH (06:00)
[2020-04-05] MEDS: InsuLIN REG 1unit/0.01ml Soln (100units/ml) SC SCH ×3 (06:34→17:00)
[2020-04-05] MEDS: ACCU-CHEK COMFORT CURVE STRIP VI SCH ×3 (06:34→17:34)
[2020-04-05] MEDS ORDERED: HYDROmorphone HCL 2 MG/ML VL IM ONE (07:45)
[2020-04-05 08:17] LABS: Basophils # (auto) 0.1 10 ^3/uL (0-0.2); Basophils % (auto) 1.1 % (0.0-2.0); Eosinophils # (auto) 0.3 10 ^3/uL (0-0.8); Lymphocytes # (auto) 1.8 10 ^3/uL (0.4-5.4); Mean Corpuscular Hemoglobin 28.2 pg (28.0-32.0); Neutrophils # (auto) 5.1 10 ^3/uL (1.6-8.6)
[2020-04-05 08:19] LABS: Eosinophils % (auto) 3.5 % (0.0-7.0); Hematocrit 25.2 % (36.0-46.0); Hemoglobin 7.6 g/dL (12.2-16.2); Lymphocytes % (auto) 22.1 % (10.0-50.0); Monocytes # (auto) 0.9 10 ^3/uL (0-1.3); Monocytes % (auto) 11.2 % (0.0-12.0); Neutrophils % (auto) 62.1 % (37.0-80.0); Nucleated Red Blood Cells % 0.1 %; Platelet Count (auto) 263 10^3/uL (140-450); Red Blood Cells 2.68 10^6/uL (4.0-5.20); Red Cell Distribution Width 18.6 % (11.8-14.3); White Blood Cell 8.2 10^3/uL (4.4-10.8)
[2020-04-05 08:31] LABS: Albumin 1.6 g/dL (3.4-5.0); Calcium 7.7 mg/dL (8.5-10.1); Potassium 3.9 mmol/L (3.5-5.1)
[2020-04-05 08:33] LABS: Bilirubin, Total 0.4 mg/dL (0.2-1.0); Total Protein 5.3 g/dL (6.4-8.2)
[2020-04-05] MEDS: PANTOPRAZOLE 40 MG TAB PO SCH ×2 (10:00→10:15)
[2020-04-05] MEDS: ASPirin 81 mg TAB PO SCH ×2 (10:00→10:12)
[2020-04-05] MEDS: APIXABAN 5 MG TAB PO SCH ×3 (10:00→21:26)
[2020-04-05] MEDS: DOXYCYCLINE 100 MG TAB/CAP PO SCH ×3 (10:00→21:27)
[2020-04-05] MEDS: ZINC SULFATE 220mg CAP or TAB PO SCH ×2 (10:00→10:12)
[2020-04-05] MEDS: ASCORBIC ACID 1,000 MG TAB PO SCH ×2 (10:00→10:16)
[2020-04-05] MEDS: LISINOPRIL 10 MG TAB PO SCH ×2 (10:00→10:16)
[2020-04-05] MEDS: MAGNESIUM OXIDE 400 MG TAB PO SCH ×2 (10:00→10:15)
[2020-04-05] MEDS: FLUCONAZOLE 100 MG TAB PO SCH ×2 (10:00→10:12)
[2020-04-05] MEDS: CHOLECALCIFEROL (VITD3) 1,000IU=25mCg TAB PO SCH ×2 (10:00→10:18)
[2020-04-05] MEDS: METOPROLOL TARTRATE 25 MG TAB PO SCH ×3 (10:00→21:27)
[2020-04-05] MEDS: CLOTRIMAZOLE 1 % CREAM 15GM TOP SCH ×2 (10:16→22:00)
[2020-04-05] MEDS ORDERED: NALOXONE HCL 1MG/ML 2ML SYRINGE ONE (10:43)
[2020-04-05] MEDS ORDERED: NALOXONE HCL 1MG/ML 2ML SYRINGE IV ONE (10:45)
[2020-04-05] MEDS: ALBUTEROL SULF 2.5 MG/0.5ML(0.5%) NEB SOLN NEB SCH ×2 (12:21→18:45)
[2020-04-05 13:00] VITALS: BP 117/61
[2020-04-05 17:00] VITALS: BP 111/77
[2020-04-05] MEDS: FUROSEMIDE 20 MG/2 ML VIAL IV SCH (18:15)
[2020-04-05 20:00] VITALS: BP 125/70
[2020-04-05] MEDS: ATORVASTATIN 20 MG TAB PO SCH (21:26)
[2020-04-05 21:49] VITALS: BP 125/70
[2020-04-05] MEDS: HYDROcodone-ACET 5/325MG TAB PO PRN (23:43)
[2020-04-06] VITALS (13 sets, daily range): BP systolic 81–119; BP diastolic 35–62
[2020-04-06] MEDS: HYDROcodone-ACET 5/325MG TAB PO PRN ×2 (04:16→20:56)
[2020-04-06] MEDS: FUROSEMIDE 20 MG/2 ML VIAL IV SCH ×2 (05:46→17:50)
[2020-04-06] MEDS: ALBUTEROL SULF 2.5 MG/0.5ML(0.5%) NEB SOLN NEB SCH ×3 (06:06→19:15)
[2020-04-06 06:59] LABS: Basophils # (auto) 0.1 10 ^3/uL (0-0.2); Eosinophils # (auto) 0.3 10 ^3/uL (0-0.8); Lymphocytes # (auto) 1.9 10 ^3/uL (0.4-5.4); Neutrophils # (auto) 5.3 10 ^3/uL (1.6-8.6); White Blood Cell 8.5 10^3/uL (4.4-10.8)
[2020-04-06 07:01] LABS: Basophils % (auto) 0.8 % (0.0-2.0); Eosinophils % (auto) 3.5 % (0.0-7.0); Hematocrit 22.3 % (36.0-46.0); Lymphocytes % (auto) 22.2 % (10.0-50.0); Mean Corpuscular Hgb Conc. 30.8 g/dL (32.0-36.0); Mean Corpuscular Volume 94.1 fL (80.0-100.0); Monocytes % (auto) 11.6 % (0.0-12.0); Neutrophils % (auto) 61.9 % (37.0-80.0); Nucleated Red Blood Cells % 0.2 %; Platelet Count (auto) 245 10^3/uL (140-450); Red Blood Cells 2.37 10^6/uL (4.0-5.20); Red Cell Distribution Width 18.4 % (11.8-14.3)
[2020-04-06 07:08] LABS: Hemoglobin 6.9 g/dL (12.2-16.2)
[2020-04-06] MEDS ORDERED: diphenhdrAMINE HCL 25 MG CAP PO PRN (07:15)
[2020-04-06 07:16] LABS: Calcium 7.9 mg/dL (8.5-10.1); Magnesium 1.3 mg/dL (1.6-2.6); Potassium 3.9 mmol/L (3.5-5.1)
[2020-04-06 07:18] LABS: BUN/Creatinine Ratio 17.5
[2020-04-06] MEDS ORDERED: ACETAMINOPHEN 325 MG TAB PO ONE (09:00)
[2020-04-06] MEDS: FLUCONAZOLE 100 MG TAB PO SCH (09:56)
[2020-04-06] MEDS: DOXYCYCLINE 100 MG TAB/CAP PO SCH ×2 (09:56→21:20)
[2020-04-06] MEDS: PANTOPRAZOLE 40 MG TAB PO SCH (09:56)
[2020-04-06] MEDS: APIXABAN 5 MG TAB PO SCH (09:56)
[2020-04-06] MEDS: METOPROLOL TARTRATE 25 MG TAB PO SCH ×2 (09:57→21:21)
[2020-04-06] MEDS: LISINOPRIL 10 MG TAB PO SCH (09:57)
[2020-04-06] MEDS: ASPirin 81 mg TAB PO SCH (09:57)
[2020-04-06] MEDS: CHOLECALCIFEROL (VITD3) 1,000IU=25mCg TAB PO SCH (10:00)
[2020-04-06] MEDS ORDERED: MAGNESIUM OXIDE 400 MG TAB PO ONE (13:30)
[2020-04-06] MEDS: CLOTRIMAZOLE 1 % CREAM 15GM TOP SCH ×3 (13:53→22:00)
[2020-04-06] MEDS: MAGNESIUM SULFATE 1GM/100ML 100 ML IV SCH ×2 (17:23→18:34)
[2020-04-06] MEDS ORDERED: IOHEXOL 350 MG/ML 100ML IJ ONE (19:56)
[2020-04-06] MEDS: ATORVASTATIN 20 MG TAB PO SCH (22:05)
[2020-04-07] VITALS (7 sets, daily range): BP systolic 92–119; BP diastolic 52–94
[2020-04-07] MEDS: FUROSEMIDE 20 MG/2 ML VIAL IV SCH ×2 (05:38→17:58)
[2020-04-07 05:56] LABS: Basophils # (auto) 0.1 10 ^3/uL (0-0.2); Eosinophils # (auto) 0.3 10 ^3/uL (0-0.8); Mean Corpuscular Hgb Conc. 31.4 g/dL (32.0-36.0); Monocytes # (auto) 0.8 10 ^3/uL (0-1.3); Nucleated Red Blood Cells % 0.3 %
[2020-04-07 05:58] LABS: Basophils % (auto) 0.7 % (0.0-2.0); Eosinophils % (auto) 3.7 % (0.0-7.0); Hematocrit 24.5 % (36.0-46.0); Hemoglobin 7.7 g/dL (12.2-16.2); Lymphocytes % (auto) 24.7 % (10.0-50.0); Mean Corpuscular Hemoglobin 28.9 pg (28.0-32.0); Mean Corpuscular Volume 92.1 fL (80.0-100.0); Monocytes % (auto) 10.2 % (0.0-12.0); Neutrophils % (auto) 60.7 % (37.0-80.0); Platelet Count (auto) 255 10^3/uL (140-450); Red Blood Cells 2.65 10^6/uL (4.0-5.20); White Blood Cell 8.2 10^3/uL (4.4-10.8)
[2020-04-07 06:17] LABS: Potassium 3.7 mmol/L (3.5-5.1)
[2020-04-07 06:23] LABS: Calcium 8.1 mg/dL (8.5-10.1); Magnesium 1.7 mg/dL (1.6-2.6)
[2020-04-07] MEDS: ALBUTEROL SULF 2.5 MG/0.5ML(0.5%) NEB SOLN NEB SCH ×3 (06:24→17:45)
[2020-04-07 07:22] LABS: Alcohol, Urine < 3.0 mg/dL (0-10); Amphetamine Screen, Urine NEGATIVE (NEGATIVE); Barbiturate Scree,Urine NEGATIVE (NEGATIVE); Benzodiazephine Screen, Urine NEGATIVE (NEGATIVE); Cannabinoid Screen, Urine NEGATIVE (NEGATIVE); Cocaine Screen, Urine NEGATIVE (NEGATIVE); Opiate Scree,Urine NEGATIVE (NEGATIVE); Phencyclidine Screen, Urine NEGATIVE (NEGATIVE)
[2020-04-07] MEDS: PANTOPRAZOLE 40 MG TAB PO SCH (09:32)
[2020-04-07] MEDS: HYDROcodone-ACET 5/325MG TAB PO PRN ×4 (09:32→23:45)
[2020-04-07] MEDS: DOXYCYCLINE 100 MG TAB/CAP PO SCH ×2 (09:33→21:30)
[2020-04-07] MEDS: CHOLECALCIFEROL (VITD3) 1,000IU=25mCg TAB PO SCH (09:33)
[2020-04-07] MEDS: FLUCONAZOLE 100 MG TAB PO SCH (09:33)
[2020-04-07] MEDS: ASPirin 81 mg TAB PO SCH (09:33)
[2020-04-07] MEDS: predniSONE 5 MG TAB PO SCH (09:34)
[2020-04-07] MEDS: METOPROLOL TARTRATE 25 MG TAB PO SCH ×2 (09:38→22:00)
[2020-04-07] MEDS: LISINOPRIL 10 MG TAB PO SCH (09:39)
[2020-04-07] MEDS: CLOTRIMAZOLE 1 % CREAM 15GM TOP SCH ×2 (09:39→22:13)
[2020-04-07] MEDS ORDERED: MAGNESIUM OXIDE 400 MG TAB PO ONE (13:15)
[2020-04-07 14:57] LABS: Urine Bacteria FEW /hpf (None Seen); Urine Blood Negative /uL (Negative); Urine Hyaline Cast MANY /lpf (0 - 2); Urine Mucus FEW (None Seen); Urine Specific Gravity 1.011 (1.001-1.035); Urine WBC 10 /hpf (0 - 5)
[2020-04-07 15:01] LABS: Amphetamine Screen, Urine NEGATIVE (NEGATIVE); Barbiturate Scree,Urine NEGATIVE (NEGATIVE); Benzodiazephine Screen, Urine NEGATIVE (NEGATIVE); Cannabinoid Screen, Urine NEGATIVE (NEGATIVE); Cocaine Screen, Urine NEGATIVE (NEGATIVE); Opiate Scree,Urine POSITIVE (NEGATIVE); Phencyclidine Screen, Urine NEGATIVE (NEGATIVE)
[2020-04-07 15:08] LABS: Alcohol, Urine < 3.0 mg/dL (0-10)
[2020-04-07] MEDS: ATORVASTATIN 20 MG TAB PO SCH (21:30)
[2020-04-07] MEDS: MAGNESIUM OXIDE 400 MG TAB PO SCH (22:16)
[2020-04-08 05:00] VITALS: BP 105/64
[2020-04-08] MEDS: FUROSEMIDE 20 MG/2 ML VIAL IV SCH ×2 (05:37→18:34)
[2020-04-08] MEDS: ALBUTEROL SULF 2.5 MG/0.5ML(0.5%) NEB SOLN NEB SCH ×2 (06:17→17:56)
[2020-04-08 06:45] LABS: Basophils # (auto) 0 10 ^3/uL (0-0.2); Eosinophils # (auto) 0.1 10 ^3/uL (0-0.8); Hemoglobin 7.4 g/dL (12.2-16.2); Lymphocytes # (auto) 1.7 10 ^3/uL (0.4-5.4); Monocytes # (auto) 0.6 10 ^3/uL (0-1.3); Neutrophils # (auto) 3.9 10 ^3/uL (1.6-8.6); Nucleated Red Blood Cells % 0.2 %
[2020-04-08 06:49] LABS: Basophils % (auto) 0.5 % (0.0-2.0); Eosinophils % (auto) 1.4 % (0.0-7.0); Hematocrit 23.1 % (36.0-46.0); Lymphocytes % (auto) 27.1 % (10.0-50.0); Mean Corpuscular Hemoglobin 29.5 pg (28.0-32.0); Mean Corpuscular Volume 92.1 fL (80.0-100.0); Monocytes % (auto) 9.2 % (0.0-12.0); Neutrophils % (auto) 61.8 % (37.0-80.0); Platelet Count (auto) 234 10^3/uL (140-450); Red Blood Cells 2.51 10^6/uL (4.0-5.20); Red Cell Distribution Width 17.1 % (11.8-14.3); White Blood Cell 6.3 10^3/uL (4.4-10.8)
[2020-04-08 06:55] LABS: Albumin 1.8 g/dL (3.4-5.0); Calcium 8.2 mg/dL (8.5-10.1)
[2020-04-08 06:59] LABS: BUN/Creatinine Ratio 19.2; Bilirubin, Total 0.5 mg/dL (0.2-1.0)
[2020-04-08 09:20] VITALS: BP 131/68
[2020-04-08] MEDS: CHOLECALCIFEROL (VITD3) 1,000IU=25mCg TAB PO SCH (09:41)
[2020-04-08] MEDS: MAGNESIUM OXIDE 400 MG TAB PO SCH ×2 (09:41→21:31)
[2020-04-08] MEDS: PANTOPRAZOLE 40 MG TAB PO SCH (09:42)
[2020-04-08] MEDS: ASPirin 81 mg TAB PO SCH (09:42)
[2020-04-08] MEDS: predniSONE 5 MG TAB PO SCH (09:42)
[2020-04-08] MEDS: DOXYCYCLINE 100 MG TAB/CAP PO SCH ×2 (09:43→21:31)
[2020-04-08] MEDS: FLUCONAZOLE 100 MG TAB PO SCH (09:43)
[2020-04-08] MEDS: METOPROLOL TARTRATE 25 MG TAB PO SCH ×2 (09:44→21:33)
[2020-04-08] MEDS: LISINOPRIL 10 MG TAB PO SCH (09:44)
[2020-04-08] MEDS: CLOTRIMAZOLE 1 % CREAM 15GM TOP SCH ×2 (09:45→21:32)
[2020-04-08] MEDS: HYDROcodone-ACET 5/325MG TAB PO PRN (09:45)
[2020-04-08 11:30] LABS: INR 1.18 (0.9-1.15)
[2020-04-08 13:00] VITALS: BP 128/79
[2020-04-08] MEDS ORDERED: LIDOCAINE 2%HCL (LOCAL ANESTH.) INJ 20ML MDV ONE (13:58)
[2020-04-08] MEDS ORDERED: IODIXANOL 320MG/ML 100ML BTL IV ONE (13:58)
[2020-04-08] MEDS ORDERED: fentaNYL CITRATE 100 MCG/2 ML VL ONE (14:16)
[2020-04-08] MEDS ORDERED: MIDAZOLAM HCL 1MG/1ML-2 ML VIAL ONE (14:16)
[2020-04-08] MEDS ORDERED: SODIUM FERR GLUC 125 MG in NS 100 ML IV SCH (15:00)
[2020-04-08] MEDS: GABAPENTIN 100 MG CAP PO SCH ×2 (16:24→21:31)
[2020-04-08] MEDS: IRON SUCROSE COMPLEX 200 MG in SODIUM CHL 0.9% 100 ML IV SCH (16:24)
[2020-04-08 16:47] VITALS: BP 110/77
[2020-04-08] MEDS: ATORVASTATIN 20 MG TAB PO SCH (21:31)
[2020-04-08 22:11] VITALS: BP 101/40
[2020-04-09] MEDS: HYDROcodone-ACET 5/325MG TAB PO PRN ×2 (00:41→21:21)
[2020-04-09 05:00] VITALS: BP 92/55
[2020-04-09] MEDS: FUROSEMIDE 20 MG/2 ML VIAL IV SCH ×2 (05:37→17:36)
[2020-04-09] MEDS: GABAPENTIN 100 MG CAP PO SCH ×3 (05:38→21:20)
[2020-04-09 06:08] LABS: Basophils # (auto) 0.1 10 ^3/uL (0-0.2); Basophils % (auto) 0.9 % (0.0-2.0); Eosinophils # (auto) 0.2 10 ^3/uL (0-0.8); Eosinophils % (auto) 2.7 % (0.0-7.0); Hematocrit 23.3 % (36.0-46.0); Hemoglobin 7.2 g/dL (12.2-16.2); Lymphocytes # (auto) 1.5 10 ^3/uL (0.4-5.4); Lymphocytes % (auto) 24.8 % (10.0-50.0); Mean Corpuscular Hemoglobin 28.6 pg (28.0-32.0); Mean Corpuscular Volume 92.4 fL (80.0-100.0); Monocytes # (auto) 0.6 10 ^3/uL (0-1.3); Neutrophils # (auto) 3.9 10 ^3/uL (1.6-8.6); Neutrophils % (auto) 62.6 % (37.0-80.0); Nucleated Red Blood Cells % 0.1 %; Platelet Count (auto) 225 10^3/uL (140-450); Red Blood Cells 2.53 10^6/uL (4.0-5.20); Red Cell Distribution Width 16.9 % (11.8-14.3); White Blood Cell 6.2 10^3/uL (4.4-10.8)
[2020-04-09] MEDS: ALBUTEROL SULF 2.5 MG/0.5ML(0.5%) NEB SOLN NEB SCH ×3 (06:12→18:43)
[2020-04-09 06:32] LABS: Potassium 3.6 mmol/L (3.5-5.1)
[2020-04-09 06:50] LABS: BUN/Creatinine Ratio 25.3; Calcium 8.1 mg/dL (8.5-10.1)
[2020-04-09] MEDS ORDERED: ADENOSINE 109 MG in GIVE UN-DILUTED 0 ML IV STA (08:09)
[2020-04-09 08:43] VITALS: BP 104/65
[2020-04-09] MEDS: MAGNESIUM OXIDE 400 MG TAB PO SCH ×2 (10:00→21:20)
[2020-04-09] MEDS: CHOLECALCIFEROL (VITD3) 1,000IU=25mCg TAB PO SCH (10:00)
[2020-04-09] MEDS: LISINOPRIL 10 MG TAB PO SCH (10:00)
[2020-04-09] MEDS: CLOTRIMAZOLE 1 % CREAM 15GM TOP SCH ×2 (10:00→21:20)
[2020-04-09] MEDS: METOPROLOL TARTRATE 25 MG TAB PO SCH ×2 (10:00→21:21)
[2020-04-09] MEDS: FLUCONAZOLE 100 MG TAB PO SCH (10:00)
[2020-04-09] MEDS: predniSONE 5 MG TAB PO SCH (10:00)
[2020-04-09] MEDS: ASPirin 81 mg TAB PO SCH (10:00)
[2020-04-09] MEDS: PANTOPRAZOLE 40 MG TAB PO SCH (10:00)
[2020-04-09] MEDS: DOXYCYCLINE 100 MG TAB/CAP PO SCH ×2 (10:00→21:26)
[2020-04-09 11:52] VITALS: BP 126/77
[2020-04-09 13:00] VITALS: BP 122/70
[2020-04-09] MEDS: IRON SUCROSE COMPLEX 200 MG in SODIUM CHL 0.9% 100 ML IV SCH (16:27)
[2020-04-09 17:05] VITALS: BP 122/75
[2020-04-09] MEDS: ATORVASTATIN 20 MG TAB PO SCH (21:19)
[2020-04-09 22:00] VITALS: BP 105/64
[2020-04-10] VITALS (7 sets, daily range): BP systolic 98–124; BP diastolic 57–78
[2020-04-10] MEDS: GABAPENTIN 100 MG CAP PO SCH ×3 (04:16→20:28)
[2020-04-10] MEDS: HYDROcodone-ACET 5/325MG TAB PO PRN ×2 (04:17→20:51)
[2020-04-10] MEDS: FUROSEMIDE 20 MG/2 ML VIAL IV SCH ×2 (05:03→18:04)
[2020-04-10] MEDS: ALBUTEROL SULF 2.5 MG/0.5ML(0.5%) NEB SOLN NEB SCH ×3 (06:40→19:39)
[2020-04-10 06:54] LABS: Basophils # (auto) 0.1 10 ^3/uL (0-0.2); Eosinophils # (auto) 0.3 10 ^3/uL (0-0.8); Lymphocytes # (auto) 1.3 10 ^3/uL (0.4-5.4); Monocytes # (auto) 0.5 10 ^3/uL (0-1.3); Neutrophils # (auto) 3.6 10 ^3/uL (1.6-8.6)
[2020-04-10 06:56] LABS: Eosinophils % (auto) 5.6 % (0.0-7.0); Hematocrit 23.9 % (36.0-46.0); Hemoglobin 7.5 g/dL (12.2-16.2); Lymphocytes % (auto) 23.1 % (10.0-50.0); Mean Corpuscular Hemoglobin 28.7 pg (28.0-32.0); Mean Corpuscular Hgb Conc. 31.4 g/dL (32.0-36.0); Mean Corpuscular Volume 91.4 fL (80.0-100.0); Monocytes % (auto) 8.5 % (0.0-12.0); Neutrophils % (auto) 61.8 % (37.0-80.0); Nucleated Red Blood Cells % 0.1 %; Platelet Count (auto) 226 10^3/uL (140-450); Red Blood Cells 2.62 10^6/uL (4.0-5.20); Red Cell Distribution Width 16.7 % (11.8-14.3); White Blood Cell 5.8 10^3/uL (4.4-10.8)
[2020-04-10 07:01] LABS: BUN/Creatinine Ratio 21.5; Calcium 8.1 mg/dL (8.5-10.1); Potassium 3.6 mmol/L (3.5-5.1)
[2020-04-10 07:06] LABS: Immunoglobulin G, Serum 1257 mg/dL (586-1602)
[2020-04-10 09:05] LABS: INR 1.14 (0.9-1.15); Partial Thromboplastin Time 27.6 sec (23.64-32.05)
[2020-04-10] MEDS: DOXYCYCLINE 100 MG TAB/CAP PO SCH ×2 (10:00→20:29)
[2020-04-10] MEDS: MAGNESIUM OXIDE 400 MG TAB PO SCH ×2 (10:00→20:29)
[2020-04-10] MEDS: CLOTRIMAZOLE 1 % CREAM 15GM TOP SCH ×2 (10:00→20:50)
[2020-04-10] MEDS: METOPROLOL TARTRATE 25 MG TAB PO SCH ×2 (10:00→20:32)
[2020-04-10] MEDS: ASPirin 81 mg TAB PO SCH (10:00)
[2020-04-10] MEDS ORDERED: HEPARIN SODIUM (PORCINE) 5000 UNITS/ML 1ML VIAL ONE (10:43)
[2020-04-10] MEDS ORDERED: fentaNYL CITRATE 100 MCG/2 ML VL ONE (10:43)
[2020-04-10] MEDS ORDERED: VERAPAMIL 2.5MG/ML INJ 2ML VIAL IV ONE (10:43)
[2020-04-10] MEDS ORDERED: ANGIOMAX 250 MG VIAL IV ONE (10:43)
[2020-04-10] MEDS ORDERED: LIDOCAINE 2%HCL (LOCAL ANESTH.) INJ 20ML MDV ONE (10:44)
[2020-04-10] MEDS ORDERED: IOHEXOL 350 MG/ML 100ML IJ ONE ×2 (10:44→11:27)
[2020-04-10] MEDS ORDERED: SODIUM CHL 0.9% 0 ML ONE (10:44)
[2020-04-10] MEDS ORDERED: MIDAZOLAM HCL 1MG/1ML-2 ML VIAL ONE (10:44)
[2020-04-10] MEDS: CHOLECALCIFEROL (VITD3) 1,000IU=25mCg TAB PO SCH (13:40)
[2020-04-10] MEDS: PANTOPRAZOLE 40 MG TAB PO SCH (13:41)
[2020-04-10] MEDS: LISINOPRIL 10 MG TAB PO SCH (13:43)
[2020-04-10] MEDS: predniSONE 5 MG TAB PO SCH (13:48)
[2020-04-10] MEDS: ATORVASTATIN 20 MG TAB PO SCH (20:28)
[2020-04-10] MEDS: IRON SUCROSE COMPLEX 200 MG in SODIUM CHL 0.9% 100 ML IV SCH (20:37)
[2020-04-10] MEDS: LORazepam 0.5 MG TAB PO PRN (22:48)
[2020-04-11 05:00] VITALS: BP 134/91
[2020-04-11] MEDS: GABAPENTIN 100 MG CAP PO SCH ×3 (05:31→22:00)
[2020-04-11] MEDS: HYDROcodone-ACET 5/325MG TAB PO PRN ×2 (05:32→20:47)
[2020-04-11] MEDS: FUROSEMIDE 20 MG/2 ML VIAL IV SCH ×2 (05:32→18:04)
[2020-04-11] MEDS ORDERED: SODIUM CHLORIDE 0.9 % NEB SOLN 3ML NEB ONE ×2 (05:46→10:12)
[2020-04-11 06:00] LABS: Basophils # (auto) 0 10 ^3/uL (0-0.2); Basophils % (auto) 0.3 % (0.0-2.0); Eosinophils # (auto) 0.1 10 ^3/uL (0-0.8); Hematocrit 26.1 % (36.0-46.0); Hemoglobin 8.5 g/dL (12.2-16.2); Lymphocytes % (auto) 18.6 % (10.0-50.0); Mean Corpuscular Hemoglobin 29.2 pg (28.0-32.0); Mean Corpuscular Hgb Conc. 32.6 g/dL (32.0-36.0); Mean Corpuscular Volume 89.5 fL (80.0-100.0); Monocytes # (auto) 0.3 10 ^3/uL (0-1.3); Monocytes % (auto) 6.7 % (0.0-12.0); Neutrophils # (auto) 3.8 10 ^3/uL (1.6-8.6); Neutrophils % (auto) 73.4 % (37.0-80.0); Platelet Count (auto) 195 10^3/uL (140-450); Red Blood Cells 2.92 10^6/uL (4.0-5.20); Red Cell Distribution Width 16.6 % (11.8-14.3); White Blood Cell 5.2 10^3/uL (4.4-10.8)
[2020-04-11 06:16] LABS: BUN/Creatinine Ratio 21.2; Calcium 7.8 mg/dL (8.5-10.1); Potassium 3.5 mmol/L (3.5-5.1)
[2020-04-11] MEDS: ALBUTEROL SULF 2.5 MG/0.5ML(0.5%) NEB SOLN NEB SCH ×3 (06:39→18:34)
[2020-04-11 09:01] VITALS: BP 136/87
[2020-04-11] MEDS: PANTOPRAZOLE 40 MG TAB PO SCH (10:01)
[2020-04-11] MEDS: LISINOPRIL 10 MG TAB PO SCH (10:01)
[2020-04-11] MEDS: ASPirin 81 mg TAB PO SCH (10:01)
[2020-04-11] MEDS: MAGNESIUM OXIDE 400 MG TAB PO SCH ×2 (10:01→22:01)
[2020-04-11] MEDS: predniSONE 5 MG TAB PO SCH (10:01)
[2020-04-11] MEDS: METOPROLOL TARTRATE 25 MG TAB PO SCH ×2 (10:02→22:01)
[2020-04-11] MEDS: CHOLECALCIFEROL (VITD3) 1,000IU=25mCg TAB PO SCH (10:02)
[2020-04-11] MEDS: DOXYCYCLINE 100 MG TAB/CAP PO SCH (10:03)
[2020-04-11] MEDS ORDERED: FURO1TAB31 PO (11:53)
[2020-04-11] MEDS ORDERED: MET25T PO (11:53)
[2020-04-11] MEDS ORDERED: POTA-180 PO (11:53)
[2020-04-11] MEDS ORDERED: PANT40T PO (11:53)
[2020-04-11] MEDS ORDERED: LISI10TA6 PO (11:53)
[2020-04-11] MEDS ORDERED: ALBUAER3 IN (11:58)
[2020-04-11] MEDS: CLOTRIMAZOLE 1 % CREAM 15GM TOP SCH ×2 (12:05→22:02)
[2020-04-11 12:47] VITALS: BP 105/72
[2020-04-11 13:11] VITALS: BP 105/72
[2020-04-11] MEDS: IRON SUCROSE COMPLEX 200 MG in SODIUM CHL 0.9% 100 ML IV SCH (15:00)
[2020-04-11 16:35] VITALS: BP 113/68
[2020-04-11 21:40] VITALS: BP 104/63
[2020-04-11] MEDS: ATORVASTATIN 20 MG TAB PO SCH (22:02)
[2020-04-11] MEDS: LOPERAMIDE HCL 2 MG CAP PO PRN (22:50)
[2020-04-11] MEDS: LORazepam 0.5 MG TAB PO PRN (23:27)
[2020-04-12] MEDS: HYDROcodone-ACET 5/325MG TAB PO PRN ×4 (01:36→18:54)
[2020-04-12 05:00] VITALS: BP 115/72
[2020-04-12] MEDS: FUROSEMIDE 20 MG/2 ML VIAL IV SCH ×2 (05:36→17:14)
[2020-04-12] MEDS: GABAPENTIN 100 MG CAP PO SCH ×3 (05:36→22:20)
[2020-04-12] MEDS: LOPERAMIDE HCL 2 MG CAP PO PRN (05:39)
[2020-04-12] MEDS: ALBUTEROL SULF 2.5 MG/0.5ML(0.5%) NEB SOLN NEB SCH ×4 (07:27→19:17)
[2020-04-12 08:46] VITALS: BP 98/62
[2020-04-12] MEDS: CHOLECALCIFEROL (VITD3) 1,000IU=25mCg TAB PO SCH (10:00)
[2020-04-12] MEDS: METOPROLOL TARTRATE 25 MG TAB PO SCH ×2 (10:00→22:21)
[2020-04-12] MEDS: MAGNESIUM OXIDE 400 MG TAB PO SCH ×2 (10:00→22:20)
[2020-04-12] MEDS: LISINOPRIL 10 MG TAB PO SCH (10:00)
[2020-04-12] MEDS: predniSONE 5 MG TAB PO SCH (10:00)
[2020-04-12] MEDS: PANTOPRAZOLE 40 MG TAB PO SCH (10:00)
[2020-04-12] MEDS: ASPirin 81 mg TAB PO SCH (10:01)
[2020-04-12] MEDS: CLOTRIMAZOLE 1 % CREAM 15GM TOP SCH ×2 (10:02→22:20)
[2020-04-12 13:00] VITALS: BP 120/73
[2020-04-12] MEDS: IRON SUCROSE COMPLEX 200 MG in SODIUM CHL 0.9% 100 ML IV SCH (14:37)
[2020-04-12 16:18] VITALS: BP 126/86
[2020-04-12] MEDS: MAGNESIUM SULFATE 1GM/100ML 100 ML IV SCH ×2 (17:13→18:36)
[2020-04-12 21:58] VITALS: BP 118/66
[2020-04-12] MEDS: ATORVASTATIN 20 MG TAB PO SCH (22:20)
[2020-04-12] MEDS: LORazepam 0.5 MG TAB PO PRN (23:21)
[2020-04-13] MEDS: HYDROcodone-ACET 5/325MG TAB PO PRN ×4 (00:30→22:02)
[2020-04-13 04:55] VITALS: BP 122/66
[2020-04-13] MEDS: FUROSEMIDE 20 MG/2 ML VIAL IV SCH ×2 (05:34→17:51)
[2020-04-13] MEDS: GABAPENTIN 100 MG CAP PO SCH ×3 (05:34→22:01)
[2020-04-13 05:50] LABS: Basophils # (auto) 0.1 10 ^3/uL (0-0.2); Basophils % (auto) 0.8 % (0.0-2.0); Eosinophils # (auto) 0.2 10 ^3/uL (0-0.8); Eosinophils % (auto) 3.2 % (0.0-7.0); Hematocrit 27.1 % (36.0-46.0); Hemoglobin 8.6 g/dL (12.2-16.2); Lymphocytes # (auto) 1.7 10 ^3/uL (0.4-5.4); Lymphocytes % (auto) 24.7 % (10.0-50.0); Mean Corpuscular Hemoglobin 29.1 pg (28.0-32.0); Mean Corpuscular Hgb Conc. 31.8 g/dL (32.0-36.0); Mean Corpuscular Volume 91.4 fL (80.0-100.0); Monocytes # (auto) 0.5 10 ^3/uL (0-1.3); Monocytes % (auto) 6.6 % (0.0-12.0); Neutrophils # (auto) 4.5 10 ^3/uL (1.6-8.6); Neutrophils % (auto) 64.7 % (37.0-80.0); Platelet Count (auto) 202 10^3/uL (140-450); Red Blood Cells 2.96 10^6/uL (4.0-5.20); Red Cell Distribution Width 16.7 % (11.8-14.3)
[2020-04-13 06:09] LABS: Potassium 3.2 mmol/L (3.5-5.1)
[2020-04-13 06:12] LABS: BUN/Creatinine Ratio 22.2; Calcium 7.8 mg/dL (8.5-10.1); Magnesium 1.5 mg/dL (1.6-2.6)
[2020-04-13] MEDS: ALBUTEROL SULF 2.5 MG/0.5ML(0.5%) NEB SOLN NEB SCH ×3 (06:44→19:51)
[2020-04-13 09:00] VITALS: BP 110/68
[2020-04-13] MEDS: ASPirin 81 mg TAB PO SCH (11:25)
[2020-04-13] MEDS: MAGNESIUM OXIDE 400 MG TAB PO SCH ×2 (11:25→22:01)
[2020-04-13] MEDS: LISINOPRIL 10 MG TAB PO SCH (11:26)
[2020-04-13] MEDS: predniSONE 5 MG TAB PO SCH (11:26)
[2020-04-13] MEDS: PANTOPRAZOLE 40 MG TAB PO SCH (11:26)
[2020-04-13] MEDS: METOPROLOL TARTRATE 25 MG TAB PO SCH ×2 (11:26→22:04)
[2020-04-13] MEDS: CLOTRIMAZOLE 1 % CREAM 15GM TOP SCH ×2 (11:27→22:01)
[2020-04-13] MEDS: CHOLECALCIFEROL (VITD3) 1,000IU=25mCg TAB PO SCH (11:27)
[2020-04-13 13:00] VITALS: BP 120/79
[2020-04-13] MEDS ORDERED: POTASSIUM EFFERVESENT TAB 25 MEQ PO ONE (13:00)
[2020-04-13 16:38] VITALS: BP 105/64
[2020-04-13 20:40] VITALS: BP 105/64
[2020-04-13 21:30] VITALS: BP 114/66
[2020-04-13] MEDS: ATORVASTATIN 20 MG TAB PO SCH (22:00)
[2020-04-14] MEDS: HYDROcodone-ACET 5/325MG TAB PO PRN ×4 (03:43→22:22)
[2020-04-14 05:00] VITALS: BP 106/63
[2020-04-14] MEDS: FUROSEMIDE 20 MG/2 ML VIAL IV SCH (06:14)
[2020-04-14] MEDS: GABAPENTIN 100 MG CAP PO SCH ×3 (06:15→22:21)
[2020-04-14] MEDS: ALBUTEROL SULF 2.5 MG/0.5ML(0.5%) NEB SOLN NEB SCH ×3 (07:05→18:36)
[2020-04-14 07:59] LABS: BUN/Creatinine Ratio 17.9; Calcium 7.8 mg/dL (8.5-10.1); Magnesium 1.3 mg/dL (1.6-2.6); Potassium 3.6 mmol/L (3.5-5.1)
[2020-04-14 08:00] VITALS: BP 130/59
[2020-04-14 08:17] VITALS: BP 130/59
[2020-04-14 08:28] LABS: Basophils # (auto) 0 10 ^3/uL (0-0.2); Basophils % (auto) 0.7 % (0.0-2.0); Eosinophils # (auto) 0.2 10 ^3/uL (0-0.8); Eosinophils % (auto) 3.3 % (0.0-7.0); Hematocrit 27.5 % (36.0-46.0); Hemoglobin 8.6 g/dL (12.2-16.2); Lymphocytes # (auto) 1.6 10 ^3/uL (0.4-5.4); Lymphocytes % (auto) 23.1 % (10.0-50.0); Mean Corpuscular Hemoglobin 28.8 pg (28.0-32.0); Mean Corpuscular Hgb Conc. 31.4 g/dL (32.0-36.0); Mean Corpuscular Volume 91.8 fL (80.0-100.0); Monocytes # (auto) 0.5 10 ^3/uL (0-1.3); Monocytes % (auto) 6.5 % (0.0-12.0); Neutrophils # (auto) 4.6 10 ^3/uL (1.6-8.6); Neutrophils % (auto) 66.4 % (37.0-80.0); Platelet Count (auto) 208 10^3/uL (140-450); Red Cell Distribution Width 16.9 % (11.8-14.3)
[2020-04-14] MEDS ORDERED: MAGNESIUM SULFATE 1GM/100ML 100 ML IV ONE ×2 (10:00→18:45)
[2020-04-14] MEDS: predniSONE 5 MG TAB PO SCH (10:32)
[2020-04-14] MEDS: PANTOPRAZOLE 40 MG TAB PO SCH (10:33)
[2020-04-14] MEDS: CHOLECALCIFEROL (VITD3) 1,000IU=25mCg TAB PO SCH (10:33)
[2020-04-14] MEDS: ASPirin 81 mg TAB PO SCH (10:33)
[2020-04-14] MEDS: MAGNESIUM OXIDE 400 MG TAB PO SCH ×2 (10:33→22:21)
[2020-04-14] MEDS: CLOTRIMAZOLE 1 % CREAM 15GM TOP SCH ×2 (10:39→22:21)
[2020-04-14] MEDS: LISINOPRIL 10 MG TAB PO SCH (10:39)
[2020-04-14] MEDS: METOPROLOL TARTRATE 25 MG TAB PO SCH ×2 (10:39→22:20)
[2020-04-14 17:02] VITALS: BP 122/70
[2020-04-14] MEDS: LORazepam 0.5 MG TAB PO PRN ×2 (17:05→23:22)
[2020-04-14] MEDS: FUROSEMIDE 40 MG/4 ML VIAL IV SCH (17:06)
[2020-04-14 21:25] VITALS: BP 110/60
[2020-04-14] MEDS: ATORVASTATIN 20 MG TAB PO SCH (22:19)
[2020-04-15 04:53] VITALS: BP 118/65
[2020-04-15] MEDS: GABAPENTIN 100 MG CAP PO SCH ×3 (06:01→21:59)
[2020-04-15] MEDS: FUROSEMIDE 40 MG/4 ML VIAL IV SCH ×2 (06:01→17:49)
[2020-04-15] MEDS: HYDROcodone-ACET 5/325MG TAB PO PRN ×3 (06:02→22:00)
[2020-04-15 06:05] LABS: Basophils # (auto) 0 10 ^3/uL (0-0.2); Eosinophils # (auto) 0.2 10 ^3/uL (0-0.8); Hemoglobin 8.4 g/dL (12.2-16.2); Mean Corpuscular Volume 91.8 fL (80.0-100.0); Neutrophils # (auto) 4.1 10 ^3/uL (1.6-8.6); White Blood Cell 6.2 10^3/uL (4.4-10.8)
[2020-04-15 06:08] LABS: Basophils % (auto) 0.4 % (0.0-2.0); Eosinophils % (auto) 3.5 % (0.0-7.0); Hematocrit 26.2 % (36.0-46.0); Lymphocytes # (auto) 1.5 10 ^3/uL (0.4-5.4); Lymphocytes % (auto) 23.8 % (10.0-50.0); Mean Corpuscular Hemoglobin 29.3 pg (28.0-32.0); Mean Corpuscular Hgb Conc. 31.9 g/dL (32.0-36.0); Monocytes # (auto) 0.4 10 ^3/uL (0-1.3); Monocytes % (auto) 6.7 % (0.0-12.0); Neutrophils % (auto) 65.6 % (37.0-80.0); Platelet Count (auto) 206 10^3/uL (140-450); Red Blood Cells 2.85 10^6/uL (4.0-5.20); Red Cell Distribution Width 17.2 % (11.8-14.3)
[2020-04-15 06:31] LABS: Potassium 3.7 mmol/L (3.5-5.1)
[2020-04-15 06:48] LABS: BUN/Creatinine Ratio 21.1; Bilirubin, Total 0.6 mg/dL (0.2-1.0); Magnesium 1.7 mg/dL (1.6-2.6); Total Protein 6.1 g/dL (6.4-8.2)
[2020-04-15] MEDS: ALBUTEROL SULF 2.5 MG/0.5ML(0.5%) NEB SOLN NEB SCH ×3 (06:48→19:17)
[2020-04-15 08:00] VITALS: BP 126/81
[2020-04-15] MEDS ORDERED: MAGNESIUM SULFATE 1GM/100ML 100 ML IV ONE (08:00)
[2020-04-15] MEDS: ASPirin 81 mg TAB PO SCH (09:43)
[2020-04-15] MEDS: PANTOPRAZOLE 40 MG TAB PO SCH (09:43)
[2020-04-15] MEDS: LISINOPRIL 10 MG TAB PO SCH (09:45)
[2020-04-15] MEDS: METOPROLOL TARTRATE 25 MG TAB PO SCH ×3 (09:45→22:00)
[2020-04-15] MEDS: MAGNESIUM OXIDE 400 MG TAB PO SCH ×2 (09:46→21:59)
[2020-04-15] MEDS: predniSONE 5 MG TAB PO SCH (09:46)
[2020-04-15] MEDS: CHOLECALCIFEROL (VITD3) 1,000IU=25mCg TAB PO SCH (09:46)
[2020-04-15] MEDS: CLOTRIMAZOLE 1 % CREAM 15GM TOP SCH ×2 (09:47→22:01)
[2020-04-15] MEDS: LORazepam 0.5 MG TAB PO PRN (14:40)
[2020-04-15 16:39] VITALS: BP 103/70
[2020-04-15 22:00] VITALS: BP 125/59
[2020-04-15] MEDS: ATORVASTATIN 20 MG TAB PO SCH (22:00)
[2020-04-16] MEDS: HYDROcodone-ACET 5/325MG TAB PO PRN ×3 (04:01→22:19)
[2020-04-16 05:00] VITALS: BP 106/60
[2020-04-16] MEDS: FUROSEMIDE 40 MG/4 ML VIAL IV SCH ×2 (05:51→17:39)
[2020-04-16] MEDS: GABAPENTIN 100 MG CAP PO SCH ×3 (05:52→22:17)
[2020-04-16 06:26] LABS: Basophils # (auto) 0.1 10 ^3/uL (0-0.2); Basophils % (auto) 0.8 % (0.0-2.0); Eosinophils # (auto) 0.3 10 ^3/uL (0-0.8); Eosinophils % (auto) 3.4 % (0.0-7.0); Hematocrit 27.9 % (36.0-46.0); Hemoglobin 8.9 g/dL (12.2-16.2); Lymphocytes # (auto) 1.4 10 ^3/uL (0.4-5.4); Mean Corpuscular Hemoglobin 29.4 pg (28.0-32.0); Mean Corpuscular Hgb Conc. 31.8 g/dL (32.0-36.0); Mean Corpuscular Volume 92.6 fL (80.0-100.0); Monocytes # (auto) 0.4 10 ^3/uL (0-1.3); Monocytes % (auto) 6.2 % (0.0-12.0); Neutrophils # (auto) 5.1 10 ^3/uL (1.6-8.6); Neutrophils % (auto) 70.6 % (37.0-80.0); Platelet Count (auto) 197 10^3/uL (140-450); Red Blood Cells 3.02 10^6/uL (4.0-5.20); Red Cell Distribution Width 17.3 % (11.8-14.3); White Blood Cell 7.3 10^3/uL (4.4-10.8)
[2020-04-16 06:46] LABS: Potassium 3.8 mmol/L (3.5-5.1)
[2020-04-16] MEDS: ALBUTEROL SULF 2.5 MG/0.5ML(0.5%) NEB SOLN NEB SCH ×3 (06:46→19:36)
[2020-04-16 06:51] LABS: BUN/Creatinine Ratio 24.3; Calcium 8.5 mg/dL (8.5-10.1)
[2020-04-16 08:00] VITALS: BP 91/58
[2020-04-16 09:20] VITALS: BP 101/60
[2020-04-16] MEDS: PANTOPRAZOLE 40 MG TAB PO SCH (09:36)
[2020-04-16] MEDS: CHOLECALCIFEROL (VITD3) 1,000IU=25mCg TAB PO SCH (09:36)
[2020-04-16] MEDS: ASPirin 81 mg TAB PO SCH (09:37)
[2020-04-16] MEDS: MAGNESIUM OXIDE 400 MG TAB PO SCH ×2 (09:37→22:19)
[2020-04-16] MEDS: predniSONE 5 MG TAB PO SCH (09:37)
[2020-04-16] MEDS: METOPROLOL TARTRATE 25 MG TAB PO SCH ×2 (09:37→22:20)
[2020-04-16] MEDS: LISINOPRIL 10 MG TAB PO SCH (09:38)
[2020-04-16] MEDS: CLOTRIMAZOLE 1 % CREAM 15GM TOP SCH ×2 (09:39→22:20)
[2020-04-16 12:58] VITALS: BP 109/59
[2020-04-16 17:29] VITALS: BP 116/67
[2020-04-16 22:00] VITALS: BP 112/63
[2020-04-16] MEDS: ATORVASTATIN 20 MG TAB PO SCH (22:19)
[2020-04-17 01:14] VITALS: BP 112/76
[2020-04-17 05:00] VITALS: BP 127/78
[2020-04-17 06:05] LABS: Basophils # (auto) 0 10 ^3/uL (0-0.2); Basophils % (auto) 0.7 % (0.0-2.0); Eosinophils # (auto) 0.3 10 ^3/uL (0-0.8); Eosinophils % (auto) 3.9 % (0.0-7.0); Lymphocytes # (auto) 1.2 10 ^3/uL (0.4-5.4); Lymphocytes % (auto) 17.4 % (10.0-50.0); Mean Corpuscular Hemoglobin 29.8 pg (28.0-32.0); Mean Corpuscular Hgb Conc. 32.1 g/dL (32.0-36.0); Mean Corpuscular Volume 92.8 fL (80.0-100.0); Monocytes # (auto) 0.4 10 ^3/uL (0-1.3); Monocytes % (auto) 5.3 % (0.0-12.0); Neutrophils % (auto) 72.7 % (37.0-80.0); Platelet Count (auto) 187 10^3/uL (140-450); Red Blood Cells 3.02 10^6/uL (4.0-5.20); Red Cell Distribution Width 17.7 % (11.8-14.3); White Blood Cell 6.9 10^3/uL (4.4-10.8)
[2020-04-17] MEDS: ALBUTEROL SULF 2.5 MG/0.5ML(0.5%) NEB SOLN NEB SCH ×4 (06:15→19:05)
[2020-04-17 06:20] LABS: Calcium 8.8 mg/dL (8.5-10.1); Magnesium 1.8 mg/dL (1.6-2.6); Potassium 3.7 mmol/L (3.5-5.1)
[2020-04-17 06:22] LABS: BUN/Creatinine Ratio 22.4
[2020-04-17] MEDS: GABAPENTIN 100 MG CAP PO SCH ×3 (06:22→21:03)
[2020-04-17] MEDS: FUROSEMIDE 40 MG/4 ML VIAL IV SCH ×2 (06:23→17:37)
[2020-04-17 08:14] VITALS: BP 134/86
[2020-04-17] MEDS: CHOLECALCIFEROL (VITD3) 1,000IU=25mCg TAB PO SCH (08:26)
[2020-04-17] MEDS: ASPirin 81 mg TAB PO SCH (08:26)
[2020-04-17] MEDS: HYDROcodone-ACET 5/325MG TAB PO PRN ×2 (08:27→16:48)
[2020-04-17] MEDS: PANTOPRAZOLE 40 MG TAB PO SCH (08:27)
[2020-04-17] MEDS: predniSONE 5 MG TAB PO SCH (08:27)
[2020-04-17] MEDS: LISINOPRIL 10 MG TAB PO SCH (08:27)
[2020-04-17] MEDS: MAGNESIUM OXIDE 400 MG TAB PO SCH ×2 (08:27→21:04)
[2020-04-17] MEDS: METOPROLOL TARTRATE 25 MG TAB PO SCH ×2 (08:28→21:04)
[2020-04-17] MEDS: CLOTRIMAZOLE 1 % CREAM 15GM TOP SCH ×2 (12:13→21:03)
[2020-04-17 13:15] VITALS: BP 120/61
[2020-04-17 17:03] VITALS: BP 106/53
[2020-04-17] MEDS: LORazepam 0.5 MG TAB PO PRN (21:03)
[2020-04-17] MEDS: ATORVASTATIN 20 MG TAB PO SCH (21:04)
[2020-04-17 22:00] VITALS: BP 127/68
[2020-04-18] MEDS: HYDROcodone-ACET 5/325MG TAB PO PRN ×3 (03:18→23:58)
[2020-04-18 05:00] VITALS: BP 101/45
[2020-04-18] MEDS: FUROSEMIDE 40 MG/4 ML VIAL IV SCH ×2 (05:24→18:28)
[2020-04-18] MEDS: GABAPENTIN 100 MG CAP PO SCH ×3 (05:25→23:27)
[2020-04-18 06:00] LABS: Hematocrit 28.9 % (36.0-46.0); Hemoglobin 9.2 g/dL (12.2-16.2); Mean Corpuscular Hemoglobin 29.8 pg (28.0-32.0); Mean Corpuscular Hgb Conc. 31.9 g/dL (32.0-36.0); Mean Corpuscular Volume 93.5 fL (80.0-100.0); Platelet Count (auto) 136 10^3/uL (140-450); Red Blood Cells 3.09 10^6/uL (4.0-5.20); Red Cell Distribution Width 18.1 % (11.8-14.3); White Blood Cell 8.2 10^3/uL (4.4-10.8)
[2020-04-18 06:18] LABS: Potassium 3.8 mmol/L (3.5-5.1)
[2020-04-18 06:25] LABS: BUN/Creatinine Ratio 24.4; Calcium 8.6 mg/dL (8.5-10.1)
[2020-04-18] MEDS: ALBUTEROL SULF 2.5 MG/0.5ML(0.5%) NEB SOLN NEB SCH ×3 (06:27→18:34)
[2020-04-18 06:32] LABS: Band Neutrophils % (manual) 0; Basophils % (manual) 0 (0.0-2.0); Blast Cells 0; Metamyelocytes % 0; Monocytes % (manual) 0 (0-12); Myelocytes % 0; Promyelocytes % 0
[2020-04-18] MEDS ORDERED: MAGNESIUM SULFATE 1GM/100ML 100 ML IV ONE (08:15)
[2020-04-18 08:21] LABS: Eosinophils % (manual) 1 (0-7); Lymphocytes % (manual) 9 (10.0-50.0); Reactive Lymphocytes 1
[2020-04-18] MEDS: MAGNESIUM OXIDE 400 MG TAB PO SCH ×2 (08:40→23:27)
[2020-04-18] MEDS: predniSONE 5 MG TAB PO SCH (08:40)
[2020-04-18] MEDS: CLOTRIMAZOLE 1 % CREAM 15GM TOP SCH ×2 (08:40→23:27)
[2020-04-18] MEDS: CHOLECALCIFEROL (VITD3) 1,000IU=25mCg TAB PO SCH (08:40)
[2020-04-18] MEDS: PANTOPRAZOLE 40 MG TAB PO SCH (08:40)
[2020-04-18] MEDS: ASPirin 81 mg TAB PO SCH (08:40)
[2020-04-18] MEDS: LORazepam 0.5 MG TAB PO PRN (08:41)
[2020-04-18] MEDS: METOPROLOL TARTRATE 25 MG TAB PO SCH ×2 (08:43→23:27)
[2020-04-18] MEDS: LISINOPRIL 10 MG TAB PO SCH (08:43)
[2020-04-18 09:00] VITALS: BP 108/60
[2020-04-18 13:00] VITALS: BP 111/64
[2020-04-18 17:01] VITALS: BP 125/74
[2020-04-18 22:00] VITALS: BP 121/81
[2020-04-18] MEDS: ATORVASTATIN 20 MG TAB PO SCH (23:27)
[2020-04-19] MEDS: LORazepam 0.5 MG TAB PO PRN ×3 (02:32→20:47)
[2020-04-19 05:00] VITALS: BP 102/67
[2020-04-19] MEDS: FUROSEMIDE 40 MG/4 ML VIAL IV SCH ×2 (05:56→18:15)
[2020-04-19] MEDS: GABAPENTIN 100 MG CAP PO SCH ×3 (05:56→20:46)
[2020-04-19] MEDS: HYDROcodone-ACET 5/325MG TAB PO PRN ×2 (05:57→18:24)
[2020-04-19] MEDS: ALBUTEROL SULF 2.5 MG/0.5ML(0.5%) NEB SOLN NEB SCH ×3 (06:32→18:44)
[2020-04-19 08:56] VITALS: BP 95/50
[2020-04-19] MEDS: MAGNESIUM OXIDE 400 MG TAB PO SCH ×2 (09:57→20:47)
[2020-04-19] MEDS: CHOLECALCIFEROL (VITD3) 1,000IU=25mCg TAB PO SCH (09:57)
[2020-04-19] MEDS: PANTOPRAZOLE 40 MG TAB PO SCH (09:57)
[2020-04-19] MEDS: predniSONE 5 MG TAB PO SCH (09:57)
[2020-04-19] MEDS: ASPirin 81 mg TAB PO SCH (09:57)
[2020-04-19] MEDS: LISINOPRIL 10 MG TAB PO SCH (10:00)
[2020-04-19] MEDS: CLOTRIMAZOLE 1 % CREAM 15GM TOP SCH (10:00)
[2020-04-19] MEDS: METOPROLOL TARTRATE 25 MG TAB PO SCH ×2 (10:00→20:47)
[2020-04-19 12:39] VITALS: BP 122/73
[2020-04-19 16:41] VITALS: BP 118/73
[2020-04-19] MEDS: ATORVASTATIN 20 MG TAB PO SCH (20:46)
[2020-04-19 21:59] VITALS: BP 145/88
[2020-04-19 23:03] VITALS: BP 145/88
[2020-04-20] MEDS: CLOTRIMAZOLE 1 % CREAM 15GM TOP SCH ×3 (01:00→21:22)
[2020-04-20] MEDS: TEMAZEPAM 15 MG CAP PO PRN ×2 (01:16→22:09)
[2020-04-20 05:02] VITALS: BP 103/64
[2020-04-20] MEDS: FUROSEMIDE 40 MG/4 ML VIAL IV SCH ×2 (05:50→17:49)
[2020-04-20] MEDS: GABAPENTIN 100 MG CAP PO SCH ×3 (05:50→21:22)
[2020-04-20] MEDS: ALBUTEROL SULF 2.5 MG/0.5ML(0.5%) NEB SOLN NEB SCH ×3 (06:56→18:57)
[2020-04-20 09:00] VITALS: BP 136/87
[2020-04-20] MEDS: CHOLECALCIFEROL (VITD3) 1,000IU=25mCg TAB PO SCH (09:23)
[2020-04-20] MEDS: PANTOPRAZOLE 40 MG TAB PO SCH (09:23)
[2020-04-20] MEDS: ASPirin 81 mg TAB PO SCH (09:23)
[2020-04-20] MEDS: MAGNESIUM OXIDE 400 MG TAB PO SCH ×2 (09:23→21:22)
[2020-04-20] MEDS: predniSONE 5 MG TAB PO SCH (09:23)
[2020-04-20] MEDS: LISINOPRIL 10 MG TAB PO SCH (09:24)
[2020-04-20] MEDS: METOPROLOL TARTRATE 25 MG TAB PO SCH ×2 (09:25→21:51)
[2020-04-20] MEDS: HYDROcodone-ACET 5/325MG TAB PO PRN ×2 (12:14→17:48)
[2020-04-20 13:00] VITALS: BP 95/54
[2020-04-20] MEDS: LORazepam 0.5 MG TAB PO PRN (14:22)
[2020-04-20 17:00] VITALS: BP 118/72
[2020-04-20] MEDS: ATORVASTATIN 20 MG TAB PO SCH (21:22)
[2020-04-20 22:00] VITALS: BP 104/56
[2020-04-21] MEDS: HYDROcodone-ACET 5/325MG TAB PO PRN ×2 (01:43→15:39)
[2020-04-21] MEDS: LORazepam 0.5 MG TAB PO PRN ×2 (04:10→19:42)
[2020-04-21] MEDS: GABAPENTIN 100 MG CAP PO SCH ×3 (05:14→21:50)
[2020-04-21] MEDS: FUROSEMIDE 40 MG/4 ML VIAL IV SCH ×2 (05:15→17:59)
[2020-04-21 05:43] VITALS: BP 105/62
[2020-04-21] MEDS: ALBUTEROL SULF 2.5 MG/0.5ML(0.5%) NEB SOLN NEB SCH ×3 (06:36→19:53)
[2020-04-21 08:00] VITALS: BP 112/72
[2020-04-21 09:00] VITALS: BP 112/72
[2020-04-21] MEDS: METOPROLOL TARTRATE 25 MG TAB PO SCH ×3 (10:00→22:02)
[2020-04-21] MEDS: predniSONE 5 MG TAB PO SCH (10:08)
[2020-04-21] MEDS: ASPirin 81 mg TAB PO SCH (10:08)
[2020-04-21] MEDS: PANTOPRAZOLE 40 MG TAB PO SCH (10:09)
[2020-04-21] MEDS: CHOLECALCIFEROL (VITD3) 1,000IU=25mCg TAB PO SCH (10:09)
[2020-04-21] MEDS: MAGNESIUM OXIDE 400 MG TAB PO SCH ×2 (10:09→21:50)
[2020-04-21] MEDS: LISINOPRIL 10 MG TAB PO SCH (10:10)
[2020-04-21] MEDS: CLOTRIMAZOLE 1 % CREAM 15GM TOP SCH ×2 (11:46→21:51)
[2020-04-21 17:00] VITALS: BP 120/71
[2020-04-21] MEDS: ATORVASTATIN 20 MG TAB PO SCH (21:50)
[2020-04-21 22:00] VITALS: BP 122/75
[2020-04-22] VITALS (9 sets, daily range): BP systolic 93–139; BP diastolic 55–81
[2020-04-22] MEDS: HYDROcodone-ACET 5/325MG TAB PO PRN ×3 (02:19→20:45)
[2020-04-22] MEDS: LORazepam 0.5 MG TAB PO PRN ×2 (03:47→15:42)
[2020-04-22] MEDS: GABAPENTIN 100 MG CAP PO SCH ×3 (05:36→21:34)
[2020-04-22] MEDS: FUROSEMIDE 40 MG/4 ML VIAL IV SCH ×2 (05:41→17:50)
[2020-04-22] MEDS: ALBUTEROL SULF 2.5 MG/0.5ML(0.5%) NEB SOLN NEB SCH ×3 (07:15→18:38)
[2020-04-22] MEDS: ASPirin 81 mg TAB PO SCH (09:41)
[2020-04-22] MEDS: METOPROLOL TARTRATE 25 MG TAB PO SCH ×2 (09:42→21:36)
[2020-04-22] MEDS: predniSONE 5 MG TAB PO SCH (09:42)
[2020-04-22] MEDS: LISINOPRIL 10 MG TAB PO SCH (09:48)
[2020-04-22] MEDS: MAGNESIUM OXIDE 400 MG TAB PO SCH ×2 (09:48→21:34)
[2020-04-22] MEDS: PANTOPRAZOLE 40 MG TAB PO SCH (09:48)
[2020-04-22] MEDS: CHOLECALCIFEROL (VITD3) 1,000IU=25mCg TAB PO SCH (09:48)
[2020-04-22] MEDS: CLOTRIMAZOLE 1 % CREAM 15GM TOP SCH ×2 (09:49→21:36)
[2020-04-22] MEDS: ATORVASTATIN 20 MG TAB PO SCH (21:35)
[2020-04-22] MEDS: TEMAZEPAM 15 MG CAP PO PRN (22:27)
[2020-04-23] MEDS: GABAPENTIN 100 MG CAP PO SCH ×3 (05:33→21:30)
[2020-04-23] MEDS: FUROSEMIDE 40 MG/4 ML VIAL IV SCH (05:34)
[2020-04-23 05:46] VITALS: BP 118/78
[2020-04-23] MEDS: HYDROcodone-ACET 5/325MG TAB PO PRN ×2 (05:46→15:55)
[2020-04-23] MEDS: ALBUTEROL SULF 2.5 MG/0.5ML(0.5%) NEB SOLN NEB SCH ×3 (06:58→18:37)
[2020-04-23 08:00] VITALS: BP 106/53
[2020-04-23 09:00] VITALS: BP 106/53
[2020-04-23] MEDS: LISINOPRIL 10 MG TAB PO SCH (10:00)
[2020-04-23] MEDS: METOPROLOL TARTRATE 25 MG TAB PO SCH ×2 (10:00→21:30)
[2020-04-23] MEDS: ASPirin 81 mg TAB PO SCH (10:05)
[2020-04-23] MEDS: predniSONE 5 MG TAB PO SCH (10:05)
[2020-04-23] MEDS: MAGNESIUM OXIDE 400 MG TAB PO SCH ×2 (10:06→21:30)
[2020-04-23] MEDS: CLOTRIMAZOLE 1 % CREAM 15GM TOP SCH ×2 (10:07→21:30)
[2020-04-23] MEDS: CHOLECALCIFEROL (VITD3) 1,000IU=25mCg TAB PO SCH (10:07)
[2020-04-23] MEDS: PANTOPRAZOLE 40 MG TAB PO SCH (10:07)
[2020-04-23] MEDS ORDERED: SODIUM CHLORIDE 0.9% 500 ML IV ONE (12:15)
[2020-04-23 13:00] VITALS: BP 82/40
[2020-04-23 17:08] VITALS: BP 125/76
[2020-04-23] MEDS: ATORVASTATIN 20 MG TAB PO SCH (21:29)
[2020-04-23 21:30] VITALS: BP 122/67
[2020-04-23] MEDS: LORazepam 0.5 MG TAB PO PRN (21:33)
[2020-04-24] MEDS: TEMAZEPAM 15 MG CAP PO PRN (00:13)
[2020-04-24] MEDS: HYDROcodone-ACET 5/325MG TAB PO PRN ×4 (04:19→22:29)
[2020-04-24 05:00] VITALS: BP 112/70
[2020-04-24] MEDS: GABAPENTIN 100 MG CAP PO SCH (05:52)
[2020-04-24 06:23] LABS: Basophils # (auto) 0 10 ^3/uL (0-0.2); Basophils % (auto) 0.7 % (0.0-2.0); Eosinophils # (auto) 0.2 10 ^3/uL (0-0.8); Eosinophils % (auto) 2.9 % (0.0-7.0); Hemoglobin 10.2 g/dL (12.2-16.2); Lymphocytes # (auto) 1.7 10 ^3/uL (0.4-5.4); Lymphocytes % (auto) 24.6 % (10.0-50.0); Mean Corpuscular Hemoglobin 29.9 pg (28.0-32.0); Mean Corpuscular Hgb Conc. 31.9 g/dL (32.0-36.0); Mean Corpuscular Volume 93.8 fL (80.0-100.0); Monocytes # (auto) 0.3 10 ^3/uL (0-1.3); Neutrophils # (auto) 4.6 10 ^3/uL (1.6-8.6); Neutrophils % (auto) 66.8 % (37.0-80.0); Platelet Count (auto) 255 10^3/uL (140-450); Red Blood Cells 3.41 10^6/uL (4.0-5.20); White Blood Cell 6.9 10^3/uL (4.4-10.8)
[2020-04-24 06:45] LABS: Potassium 4.3 mmol/L (3.5-5.1)
[2020-04-24] MEDS: ALBUTEROL SULF 2.5 MG/0.5ML(0.5%) NEB SOLN NEB SCH ×3 (07:08→18:40)
[2020-04-24 07:14] LABS: Albumin 2.6 g/dL (3.4-5.0); BUN/Creatinine Ratio 30.4; Bilirubin, Total 0.5 mg/dL (0.2-1.0); Calcium 9.2 mg/dL (8.5-10.1); Total Protein 7.2 g/dL (6.4-8.2)
[2020-04-24 09:00] VITALS: BP 100/59
[2020-04-24] MEDS: LISINOPRIL 10 MG TAB PO SCH (10:00)
[2020-04-24] MEDS: METOPROLOL TARTRATE 25 MG TAB PO SCH ×2 (10:00→22:21)
[2020-04-24] MEDS: ASPirin 81 mg TAB PO SCH (10:03)
[2020-04-24] MEDS: MAGNESIUM OXIDE 400 MG TAB PO SCH (10:03)
[2020-04-24] MEDS: predniSONE 5 MG TAB PO SCH (10:03)
[2020-04-24] MEDS: PANTOPRAZOLE 40 MG TAB PO SCH (10:04)
[2020-04-24] MEDS: CLOTRIMAZOLE 1 % CREAM 15GM TOP SCH ×2 (10:04→21:02)
[2020-04-24] MEDS: CHOLECALCIFEROL (VITD3) 1,000IU=25mCg TAB PO SCH (10:18)
[2020-04-24 13:00] VITALS: BP 110/68
[2020-04-24] MEDS: GABAPENTIN 300 MG CAP PO SCH ×2 (15:17→22:22)
[2020-04-24 17:00] VITALS: BP 100/69
[2020-04-24] MEDS: LOPERAMIDE HCL 2 MG CAP PO PRN (19:53)
[2020-04-24] MEDS: LORazepam 0.5 MG TAB PO PRN (19:53)
[2020-04-24 20:00] VITALS: BP 121/77
[2020-04-24 22:00] VITALS: BP 121/77
[2020-04-24] MEDS: ATORVASTATIN 20 MG TAB PO SCH (22:22)
[2020-04-25] VITALS (7 sets, daily range): BP systolic 93–119; BP diastolic 56–79
[2020-04-25] MEDS: LORazepam 0.5 MG TAB PO PRN ×2 (04:30→14:06)
[2020-04-25] MEDS: HYDROcodone-ACET 5/325MG TAB PO PRN ×3 (05:28→21:48)
[2020-04-25] MEDS: GABAPENTIN 300 MG CAP PO SCH ×3 (05:29→21:48)
[2020-04-25] MEDS: ALBUTEROL SULF 2.5 MG/0.5ML(0.5%) NEB SOLN NEB SCH ×3 (06:03→18:29)
[2020-04-25 06:21] LABS: Basophils # (auto) 0.1 10 ^3/uL (0-0.2); Basophils % (auto) 1.1 % (0.0-2.0); Eosinophils # (auto) 0.2 10 ^3/uL (0-0.8); Eosinophils % (auto) 4.2 % (0.0-7.0); Hematocrit 36.4 % (36.0-46.0); Hemoglobin 11.4 g/dL (12.2-16.2); Lymphocytes # (auto) 1.8 10 ^3/uL (0.4-5.4); Lymphocytes % (auto) 31.2 % (10.0-50.0); Mean Corpuscular Hemoglobin 30.2 pg (28.0-32.0); Mean Corpuscular Hgb Conc. 31.4 g/dL (32.0-36.0); Mean Corpuscular Volume 96.3 fL (80.0-100.0); Monocytes # (auto) 0.4 10 ^3/uL (0-1.3); Monocytes % (auto) 6.1 % (0.0-12.0); Neutrophils # (auto) 3.3 10 ^3/uL (1.6-8.6); Neutrophils % (auto) 57.4 % (37.0-80.0); Nucleated Red Blood Cells % 0.1 %; Platelet Count (auto) 234 10^3/uL (140-450); Red Blood Cells 3.78 10^6/uL (4.0-5.20); Red Cell Distribution Width 16.9 % (11.8-14.3); White Blood Cell 5.8 10^3/uL (4.4-10.8)
[2020-04-25 06:47] LABS: Potassium 5.1 mmol/L (3.5-5.1)
[2020-04-25 06:54] LABS: BUN/Creatinine Ratio 34.5; Calcium 9.6 mg/dL (8.5-10.1); Magnesium 2.1 mg/dL (1.6-2.6)
[2020-04-25] MEDS: ASPirin 81 mg TAB PO SCH (10:20)
[2020-04-25] MEDS: PANTOPRAZOLE 40 MG TAB PO SCH (10:20)
[2020-04-25] MEDS: predniSONE 5 MG TAB PO SCH (10:21)
[2020-04-25] MEDS: LISINOPRIL 10 MG TAB PO SCH (10:21)
[2020-04-25] MEDS: CLOTRIMAZOLE 1 % CREAM 15GM TOP SCH ×2 (10:22→21:52)
[2020-04-25] MEDS: METOPROLOL TARTRATE 25 MG TAB PO SCH ×2 (10:22→21:44)
[2020-04-25] MEDS ORDERED: PREGABALIN CAPSULE 75 MG CAP PO ONE (17:15)
[2020-04-25] MEDS: FLORASTOR (S. BOULARDII) 250 MG CAP PO SCH (21:48)
[2020-04-25] MEDS: ATORVASTATIN 20 MG TAB PO SCH (21:48)
[2020-04-26] MEDS: HYDROcodone-ACET 5/325MG TAB PO PRN ×3 (04:20→23:39)
[2020-04-26 05:13] VITALS: BP 106/68
[2020-04-26] MEDS: GABAPENTIN 300 MG CAP PO SCH ×3 (05:35→21:53)
[2020-04-26] MEDS: LORazepam 0.5 MG TAB PO PRN ×2 (05:35→20:17)
[2020-04-26] MEDS: ALBUTEROL SULF 2.5 MG/0.5ML(0.5%) NEB SOLN NEB SCH ×3 (07:55→18:31)
[2020-04-26 09:00] VITALS: BP 93/47
[2020-04-26] MEDS: METOPROLOL TARTRATE 25 MG TAB PO SCH ×2 (10:00→21:54)
[2020-04-26] MEDS: LISINOPRIL 10 MG TAB PO SCH (10:00)
[2020-04-26] MEDS: FLORASTOR (S. BOULARDII) 250 MG CAP PO SCH ×2 (11:08→21:53)
[2020-04-26] MEDS: ASPirin 81 mg TAB PO SCH (11:08)
[2020-04-26] MEDS: predniSONE 5 MG TAB PO SCH (11:08)
[2020-04-26] MEDS: PANTOPRAZOLE 40 MG TAB PO SCH (11:09)
[2020-04-26] MEDS: CLOTRIMAZOLE 1 % CREAM 15GM TOP SCH ×2 (11:12→21:54)
[2020-04-26 13:00] VITALS: BP 90/53
[2020-04-26 17:00] VITALS: BP_SYST 114; BP_SYST 93; BP_DIAS 47; BP_DIAS 74
[2020-04-26] MEDS: ATORVASTATIN 20 MG TAB PO SCH (21:53)
[2020-04-26 22:00] VITALS: BP 120/75
[2020-04-26] MEDS: TEMAZEPAM 15 MG CAP PO PRN (23:48)
[2020-04-27] MEDS: HYDROcodone-ACET 5/325MG TAB PO PRN ×2 (03:20→22:00)
[2020-04-27 05:00] VITALS: BP 130/87
[2020-04-27] MEDS: GABAPENTIN 300 MG CAP PO SCH ×3 (05:12→21:58)
[2020-04-27] MEDS ORDERED: SODIUM CHLORIDE 0.9 % NEB SOLN 3ML NEB ONE ×2 (05:43→13:41)
[2020-04-27] MEDS: ALBUTEROL SULF 2.5 MG/0.5ML(0.5%) NEB SOLN NEB SCH ×3 (07:04→19:40)
[2020-04-27] MEDS: LORazepam 0.5 MG TAB PO PRN ×2 (07:39→18:17)
[2020-04-27 09:00] VITALS: BP 127/78
[2020-04-27] MEDS: predniSONE 5 MG TAB PO SCH (11:22)
[2020-04-27] MEDS: LISINOPRIL 10 MG TAB PO SCH (11:23)
[2020-04-27] MEDS: ASPirin 81 mg TAB PO SCH (11:23)
[2020-04-27] MEDS: FLORASTOR (S. BOULARDII) 250 MG CAP PO SCH ×2 (11:23→21:58)
[2020-04-27] MEDS: PANTOPRAZOLE 40 MG TAB PO SCH (11:23)
[2020-04-27] MEDS: METOPROLOL TARTRATE 25 MG TAB PO SCH ×2 (11:23→21:59)
[2020-04-27] MEDS: CLOTRIMAZOLE 1 % CREAM 15GM TOP SCH ×2 (11:24→22:27)
[2020-04-27 13:00] VITALS: BP 123/78
[2020-04-27 17:37] VITALS: BP 119/76
[2020-04-27 21:56] VITALS: BP 108/72
[2020-04-27] MEDS: ATORVASTATIN 20 MG TAB PO SCH (21:59)
[2020-04-27] MEDS: TEMAZEPAM 15 MG CAP PO PRN (22:59)
[2020-04-28] MEDS: LORazepam 0.5 MG TAB PO PRN (03:03)
[2020-04-28] MEDS: HYDROcodone-ACET 5/325MG TAB PO PRN ×2 (05:02→11:16)
[2020-04-28] MEDS: GABAPENTIN 300 MG CAP PO SCH (05:02)
[2020-04-28 05:34] VITALS: BP 112/72
[2020-04-28] MEDS: ALBUTEROL SULF 2.5 MG/0.5ML(0.5%) NEB SOLN NEB SCH (06:45)
[2020-04-28 09:00] VITALS: BP 104/68
[2020-04-28] MEDS: LISINOPRIL 10 MG TAB PO SCH (09:03)
[2020-04-28] MEDS: FLORASTOR (S. BOULARDII) 250 MG CAP PO SCH (09:03)
[2020-04-28] MEDS: PANTOPRAZOLE 40 MG TAB PO SCH (09:03)
[2020-04-28] MEDS: METOPROLOL TARTRATE 25 MG TAB PO SCH (09:03)
[2020-04-28] MEDS: ASPirin 81 mg TAB PO SCH (09:03)
[2020-04-28] MEDS: CLOTRIMAZOLE 1 % CREAM 15GM TOP SCH (09:04)
[2020-04-28 13:00] VITALS: BP 94/50
== END 2020-04-28 12:40 | DRG 193 ==
LOC: ER 16:59 → EDSEX 16:59 → EDBD 16:59 → TELE 17:00 → TELE-WESTW 04-05 12:31
PROVIDERS: ADMIT Hospitalist; ATTEND Internal Medicine
PROC: 4A023N7 Measurement of Cardiac Sampling and Pressure, Left Heart, Percutaneous Approach (ICD-10-PCS; principal; 2020-04-10)
PROC: B2111ZZ Fluoroscopy of Multiple Coronary Arteries using Low Osmolar Contrast (ICD-10-PCS; 2020-04-10)
PROC: B2141ZZ Fluoroscopy of Right Heart using Low Osmolar Contrast (ICD-10-PCS; 2020-04-10)
PROC: 30233N1 Transfusion of Nonautologous Red Blood Cells into Peripheral Vein, Percutaneous Approach (ICD-10-PCS; 2020-04-10)
DX: J18.9 Pneumonia, unspecified organism (principal); J96.21 Acute and chronic respiratory failure with hypoxia; E43 Unspecified severe protein-calorie malnutrition; I50.33 Acute on chronic diastolic (congestive) heart failure; K56.600 Partial intestinal obstruction, unspecified as to cause; E66.2 Morbid (severe) obesity with alveolar hypoventilation; N39.0 Urinary tract infection, site not specified; J44.0 Chronic obstructive pulmonary disease with (acute) lower respiratory infection; Z68.41 Body mass index [BMI] 40.0-44.9, adult; E87.1 Hypo-osmolality and hyponatremia; J18.0 Bronchopneumonia, unspecified organism; L30.4 Erythema intertrigo; E88.09 Other disorders of plasma-protein metabolism, not elsewhere classified; R31.9 Hematuria, unspecified; R00.0 Tachycardia, unspecified; E83.42 Hypomagnesemia; I11.0 Hypertensive heart disease with heart failure; F41.9 Anxiety disorder, unspecified; E87.6 Hypokalemia; F32.9 Major depressive disorder, single episode, unspecified; I27.21 Secondary pulmonary arterial hypertension; D64.9 Anemia, unspecified; I25.10 Atherosclerotic heart disease of native coronary artery without angina pectoris; Z20.828 Contact with and (suspected) exposure to other viral communicable diseases; Z86.711 Personal history of pulmonary embolism; Z79.899 Other long term (current) drug therapy; Z79.01 Long term (current) use of anticoagulants; Z82.49 Family history of ischemic heart disease and other diseases of the circulatory system; Z80.1 Family history of malignant neoplasm of trachea, bronchus and lung; Z82.3 Family history of stroke; Z90.49 Acquired absence of other specified parts of digestive tract; Z90.89 Acquired absence of other organs; Z87.891 Personal history of nicotine dependence; Z79.82 Long term (current) use of aspirin; Z80.7 Family history of other malignant neoplasms of lymphoid, hematopoietic and related tissues; Z81.8 Family history of other mental and behavioral disorders; Z85.118 Personal history of other malignant neoplasm of bronchus and lung; Z85.71 Personal history of Hodgkin lymphoma; Z86.73 Personal history of transient ischemic attack (TIA), and cerebral infarction without residual deficits; Z95.828 Presence of other vascular implants and grafts
CPT/HCPCS: 36415; 36556; 36600; 51702; 71045; 71275; 76536; 76942; 78452; 80048; 80053; 80061; 80307; 81001; 82270; 82728; 82784; 82805; 82962; 83010; 83036; 83605; 83615; 83735; 83880; 84132; 84155; 84165; 84443; 84484; 85007; 85025; 85027; 85045; 85379; 85610; 85730; 86141; 86334; 86850; 86880; 86900; 86901; 86920; 87040; 87045; 87070; 87081; 87427; 87493; 87804; 87880; 93005; 93017; 93926; 94640; 97110; 97163; 97530; 99152; 99153; 99291; G0378; J0153; J0696; J1756; J1815; J2250; Q9967

== ENCOUNTER 2021-03-28 00:31 | Inpatient (IN) | payer MEDICAID ==
[2021-03-28] VITALS (84 sets, daily range): BP systolic 71–142; BP diastolic 25–103
[~2021-03-28] VITALS: Ht 160 cm; Wt 107.3 kg
[~2021-03-28 00:31] MED LIST changes: +ALBUAER3 IN; -APIX5TAB PO; -ASPI81CH43 PO; -FLUC200T35 PO; -IBUP800T24 PO; +LISI-716 PO
[2021-03-28] MEDS ORDERED: SUCCINYLCHOLINE CHLORIDE 20 MG/ML 10ML VIAL IV ONE ×2 (00:48→01:15)
[2021-03-28] MEDS ORDERED: ETOMIDATE (2MG/ML) 20ML VIAL IV ONE ×2 (00:48→01:15)
[2021-03-28] MEDS ORDERED: MIDAZOLAM DRIP 50 mg/50mL 50 ML IV SCH (01:00)
[2021-03-28] MEDS ORDERED: MIDAZOLAM DRIP 50 mg/50mL 50 ML IV ONE (01:03)
[2021-03-28] MEDS ORDERED: ACETAMINOPHEN 325 MG RECT SUPP PR ONE (01:25)
[2021-03-28] MEDS: MIDAZOLAM DRIP 50 mg/50mL 50 ML IV SCH ×6 (01:25→22:51)
[2021-03-28] MEDS ORDERED: VANCOMYCIN 1GM/250ML 250 ML IV ONE ×2 (01:45→13:30)
[2021-03-28] MEDS ORDERED: ACETAMINOPHEN 650 MG RECT SUPP PR ONE (01:45)
[2021-03-28] MEDS ORDERED: METOPROLOL TARTRATE 1MG/1ML-5ML VIAL IV ONE (02:00)
[2021-03-28] MEDS ORDERED: METOPROLOL SUCCINATE XL 50 MG TAB PO ONE (02:00)
[2021-03-28] MEDS: PROPOFOL 100 ML IV SCH ×4 (02:01→21:00)
[2021-03-28 02:17] LABS: Albumin 2.9 g/dL (3.4-5.0); Potassium 4.5 mmol/L (3.5-5.1)
[2021-03-28 02:20] LABS: Bilirubin, Total 0.4 mg/dL (0.2-1.0); Total Protein 7.8 g/dL (6.4-8.2)
[2021-03-28 02:22] LABS: Basophils # (auto) 0.1 10 ^3/uL (0-0.2); Basophils % (auto) 0.2 % (0.0-2.0); Eosinophils # (auto) 0.2 10 ^3/uL (0-0.8); Eosinophils % (auto) 0.6 % (0.0-7.0); Hematocrit 45.7 % (36.0-46.0); Hemoglobin 14.7 g/dL (12.2-16.2); Lymphocytes # (auto) 4.8 10 ^3/uL (0.4-5.4); Lymphocytes % (auto) 19.3 % (10.0-50.0); Mean Corpuscular Hemoglobin 31.5 pg (28.0-32.0); Mean Corpuscular Hgb Conc. 32.1 g/dL (32.0-36.0); Mean Corpuscular Volume 98.1 fL (80.0-100.0); Monocytes # (auto) 0.6 10 ^3/uL (0-1.3); Monocytes % (auto) 2.6 % (0.0-12.0); Neutrophils # (auto) 19.1 10 ^3/uL (1.6-8.6); Neutrophils % (auto) 77.3 % (37.0-80.0); Nucleated Red Blood Cells % 0.1 %; Platelet Count (auto) 403 10^3/uL (140-450); Red Blood Cells 4.65 10^6/uL (4.0-5.20); Red Cell Distribution Width 14.1 % (11.8-14.3); White Blood Cell 24.7 10^3/uL (4.4-10.8)
[2021-03-28 02:23] LABS: Calcium 5.9 mg/dL (8.5-10.1)
[2021-03-28 02:39] LABS: INR 1.29 (0.9-1.15); Lactic Acid w/Reflex 8.8 mmol/L (0.4-2.0); Partial Thromboplastin Time 26.5 sec (23.0-31.2)
[2021-03-28] MEDS ORDERED: DEXTROSE (50%) 50ML SYRG IV PRN (02:45)
[2021-03-28] MEDS ORDERED: VANCOMYCIN PER PHARMACY 0 MG IV SCH (02:45)
[2021-03-28] MEDS ORDERED: MORPHINE SULF INJ 2 MG/ML SYRINGE 1ML IV PRN (02:45)
[2021-03-28] MEDS ORDERED: MORPHINE SULFATE 4 MG/ML SYR/VIAL IV PRN (02:45)
[2021-03-28] MEDS ORDERED: NITROGLYCERIN 0.4 MG SL TAB SL PRN (02:45)
[2021-03-28] MEDS ORDERED: ONDANSETRON HCL 4 MG/2 ML VIAL IV PRN (02:45)
[2021-03-28] MEDS ORDERED: ACETAMINOPHEN 325 MG RECT SUPP PR PRN (02:45)
[2021-03-28] MEDS ORDERED: CALCIUM GLUC 1,000mg/50ml-NS 50 ML IV ONE ×2 (02:45→19:30)
[2021-03-28] MEDS ORDERED: SODIUM CHLORIDE 0.9% 1,000 ML IV ONE ×2 (03:15)
[2021-03-28] MEDS ORDERED: PIPERACILLIN-TAZO 4.5GM 100 ML IV ONE (03:15)
[2021-03-28] MEDS ORDERED: NOREPINEPHRINE 8 MG/250ML KIT 250 ML IV ONE (05:23)
[2021-03-28] MEDS ORDERED: NOREPINEPHRINE 8 MG/250ML KIT 250 ML IV SCH (05:30)
[2021-03-28] MEDS ORDERED: PIPERACILLIN-TAZOB 2.25GM 50 ML IV SCH (06:00)
[2021-03-28] MEDS: FUROSEMIDE 40 MG/4 ML VIAL IV SCH ×2 (06:00→18:11)
[2021-03-28 06:15] LABS: Basophils # (auto) 0 10 ^3/uL (0-0.2); Eosinophils # (auto) 0 10 ^3/uL (0-0.8); Eosinophils % (auto) 0.2 % (0.0-7.0); Lymphocytes # (auto) 1.8 10 ^3/uL (0.4-5.4); Red Cell Distribution Width 14.3 % (11.8-14.3)
[2021-03-28] MEDS: ACCU-CHEK COMFORT CURVE STRIP VI SCH ×4 (06:21→22:29)
[2021-03-28] MEDS: InsuLIN REG 1unit/0.01ml Soln (100units/ml) SC SCH ×4 (06:21→22:00)
[2021-03-28 06:33] LABS: Basophils % (auto) 0.2 % (0.0-2.0); Hematocrit 43.9 % (36.0-46.0); Hemoglobin 14.1 g/dL (12.2-16.2); Mean Corpuscular Hemoglobin 32.1 pg (28.0-32.0); Mean Corpuscular Hgb Conc. 32.1 g/dL (32.0-36.0); Mean Corpuscular Volume 99.7 fL (80.0-100.0); Monocytes # (auto) 2.6 10 ^3/uL (0-1.3); Neutrophils # (auto) 17.4 10 ^3/uL (1.6-8.6); Neutrophils % (auto) 79.6 % (37.0-80.0); Nucleated Red Blood Cells % 0.1 %; Platelet Count (auto) 238 10^3/uL (140-450); White Blood Cell 21.9 10^3/uL (4.4-10.8)
[2021-03-28 06:34] LABS: Albumin 2.6 g/dL (3.4-5.0)
[2021-03-28 06:41] LABS: BUN/Creatinine Ratio 14.9; Bilirubin, Total 0.5 mg/dL (0.2-1.0)
[2021-03-28 06:44] LABS: Calcium 5.3 mg/dL (8.5-10.1)
[2021-03-28] MEDS: ALBUTEROL SULF 2.5 MG/0.5ML(0.5%) NEB SOLN NEB SCH ×5 (06:46→22:44)
[2021-03-28] MEDS: IPRATROPIUM BROM 0.5 MG/2.5ML INH SOL NEB SCH ×5 (06:46→22:44)
[2021-03-28] MEDS: MAGNESIUM SULFATE 1GM/100ML 100 ML IV SCH ×3 (07:45→10:14)
[2021-03-28] MEDS: DOBUTamine 1000MCG/ML 250 ML IV SCH ×2 (09:14→15:18)
[2021-03-28 09:36] LABS: Urine Bacteria MOD /hpf (None Seen); Urine Blood 2+ /uL (Negative); Urine Hyaline Cast MOD /lpf (0 - 2); Urine Mucus FEW (None Seen); Urine Specific Gravity 1.012 (1.001-1.035); Urine WBC 115 /hpf (0 - 5)
[2021-03-28] MEDS ORDERED: FAMOTIDINE (10MG/ML) 2ML VL IV SCH (10:00)
[2021-03-28] MEDS ORDERED: HEPARIN SODIUM (PORCINE) 5000 UNITS/ML 1ML VIAL SC SCH (10:00)
[2021-03-28] MEDS ORDERED: DIGOXIN (250MCG/ML) 2 ML AMPULE IV ONE (10:00)
[2021-03-28] MEDS ORDERED: AMIODARONE HCL 150 MG in D5W 5% 100 ML IV ONE (10:15)
[2021-03-28] MEDS ORDERED: AMIODARONE 450mg/250ml AE 250 ML IV SCH (10:15)
[2021-03-28] MEDS ORDERED: HEPARIN SODIUM (PORCINE) 5000 UNITS/ML 1ML VIAL IV ONE (10:45)
[2021-03-28 11:54] LABS: Basophils # (auto) 0.1 10 ^3/uL (0-0.2); Basophils % (auto) 0.5 % (0.0-2.0); Eosinophils # (auto) 0.2 10 ^3/uL (0-0.8); Eosinophils % (auto) 0.9 % (0.0-7.0); Hematocrit 39.9 % (36.0-46.0); Lymphocytes # (auto) 3.2 10 ^3/uL (0.4-5.4); Lymphocytes % (auto) 17.6 % (10.0-50.0); Mean Corpuscular Hemoglobin 31.8 pg (28.0-32.0); Mean Corpuscular Hgb Conc. 32.7 g/dL (32.0-36.0); Mean Corpuscular Volume 97.3 fL (80.0-100.0); Monocytes # (auto) 0.4 10 ^3/uL (0-1.3); Neutrophils # (auto) 14.5 10 ^3/uL (1.6-8.6); Nucleated Red Blood Cells % 0.1 %; Platelet Count (auto) 288 10^3/uL (140-450); Red Cell Distribution Width 14.1 % (11.8-14.3); White Blood Cell 18.4 10^3/uL (4.4-10.8)
[2021-03-28 12:19] LABS: INR 1.13 (0.9-1.15); Partial Thromboplastin Time 25.9 sec (23.0-31.2)
[2021-03-28] MEDS ORDERED: SODIUM CHLORIDE 0.9% 500 ML IV ONE (12:45)
[2021-03-28] MEDS ORDERED: ACETYLCYSTEINE ORAL for CIN 20%(200MG/ML) 4ML GT ONE (12:45)
[2021-03-28] MEDS: HEPARIN DRIP/D5W 100UNITS/ML 250 ML IV SCH (12:45)
[2021-03-28] MEDS: DIGOXIN (250MCG/ML) 2 ML AMPULE IV SCH ×2 (12:46→18:23)
[2021-03-28] MEDS: PIPERACILLIN-TAZOB 2.25GM 50 ML IV SCH ×2 (15:03→21:12)
[2021-03-28] MEDS ORDERED: IOHEXOL 350 MG/ML 100ML IJ ONE (15:22)
[2021-03-28] MEDS: AMIODARONE 450mg/250ml AE 250 ML IV SCH ×2 (17:54→19:45)
[2021-03-28] MEDS: PHENYLEPHRINE IV 250 ML IV SCH (18:11)
[2021-03-28] MEDS ORDERED: SODIUM BICARBONATE 50ML VIAL 75 ML in SOD CHL 0.45% 1,000 ML IV SCH (18:30)
[2021-03-28 18:53] LABS: BUN/Creatinine Ratio 13.4; Potassium 3.3 mmol/L (3.5-5.1)
[2021-03-28 18:57] LABS: Calcium 5.4 mg/dL (8.5-10.1)
[2021-03-28] MEDS: SODIUM BICARBONATE 50ML VIAL 75 ML in SOD CHL 0.45% 1,000 ML IV SCH (20:30)
[2021-03-28] MEDS: ACETYLCYSTEINE ORAL for CIN 20%(200MG/ML) 4ML GT SCH (22:29)
[2021-03-28] MEDS: POTASSIUM EFFERVESENT TAB 25 MEQ PO SCH (22:29)
[2021-03-29] VITALS (101 sets, daily range): BP systolic 79–115; BP diastolic 25–61
[2021-03-29] MEDS: PHENYLEPHRINE IV 250 ML IV SCH ×4 (00:09→11:39)
[2021-03-29] MEDS: DIGOXIN (250MCG/ML) 2 ML AMPULE IV SCH ×2 (01:30→06:18)
[2021-03-29] MEDS: ALBUTEROL SULF 2.5 MG/0.5ML(0.5%) NEB SOLN NEB SCH ×6 (02:13→22:18)
[2021-03-29] MEDS: IPRATROPIUM BROM 0.5 MG/2.5ML INH SOL NEB SCH ×6 (02:13→22:18)
[2021-03-29 02:38] LABS: Basophils # (auto) 0.1 10 ^3/uL (0-0.2); Basophils % (auto) 0.5 % (0.0-2.0); Eosinophils # (auto) 0.3 10 ^3/uL (0-0.8); Eosinophils % (auto) 1.7 % (0.0-7.0); Hematocrit 38.8 % (36.0-46.0); Hemoglobin 12.7 g/dL (12.2-16.2); Lymphocytes # (auto) 3.9 10 ^3/uL (0.4-5.4); Lymphocytes % (auto) 20.5 % (10.0-50.0); Mean Corpuscular Hemoglobin 31.6 pg (28.0-32.0); Mean Corpuscular Hgb Conc. 32.6 g/dL (32.0-36.0); Mean Corpuscular Volume 96.8 fL (80.0-100.0); Monocytes # (auto) 0.4 10 ^3/uL (0-1.3); Monocytes % (auto) 2.2 % (0.0-12.0); Neutrophils # (auto) 14.3 10 ^3/uL (1.6-8.6); Neutrophils % (auto) 75.1 % (37.0-80.0); Nucleated Red Blood Cells % 0.1 %; Platelet Count (auto) 245 10^3/uL (140-450); Red Blood Cells 4.01 10^6/uL (4.0-5.20); Red Cell Distribution Width 14.3 % (11.8-14.3); White Blood Cell 19.1 10^3/uL (4.4-10.8)
[2021-03-29] MEDS: PIPERACILLIN-TAZOB 2.25GM 50 ML IV SCH ×4 (02:53→21:26)
[2021-03-29 02:55] LABS: Albumin 2.2 g/dL (3.4-5.0); BUN/Creatinine Ratio 12.5; Potassium 3.5 mmol/L (3.5-5.1)
[2021-03-29 02:57] LABS: INR 1.28 (0.9-1.15)
[2021-03-29 03:00] LABS: Bilirubin, Total 0.5 mg/dL (0.2-1.0); Total Protein 6.1 g/dL (6.4-8.2)
[2021-03-29 03:13] LABS: Calcium 5.8 mg/dL (8.5-10.1)
[2021-03-29] MEDS: HEPARIN DRIP/D5W 100UNITS/ML 250 ML IV SCH ×2 (03:16→11:45)
[2021-03-29] MEDS: PROPOFOL 100 ML IV SCH ×4 (04:30→23:14)
[2021-03-29] MEDS: FUROSEMIDE 40 MG/4 ML VIAL IV SCH (06:15)
[2021-03-29] MEDS: ACCU-CHEK COMFORT CURVE STRIP VI SCH ×4 (06:17→22:00)
[2021-03-29] MEDS: InsuLIN REG 1unit/0.01ml Soln (100units/ml) SC SCH ×4 (06:18→22:00)
[2021-03-29] MEDS: AMIODARONE 450mg/250ml AE 250 ML IV SCH ×2 (08:59→23:09)
[2021-03-29] MEDS: MIDAZOLAM DRIP 50 mg/50mL 50 ML IV SCH ×3 (09:39→18:39)
[2021-03-29 09:42] LABS: INR 1.2 (0.9-1.15); Partial Thromboplastin Time 31.2 sec (23.0-31.2)
[2021-03-29 09:58] LABS: Basophils # (auto) 0.1 10 ^3/uL (0-0.2); Basophils % (auto) 0.5 % (0.0-2.0); Eosinophils # (auto) 0.3 10 ^3/uL (0-0.8); Eosinophils % (auto) 1.6 % (0.0-7.0); Hematocrit 38.1 % (36.0-46.0); Hemoglobin 12.6 g/dL (12.2-16.2); Lymphocytes # (auto) 3.6 10 ^3/uL (0.4-5.4); Lymphocytes % (auto) 20.3 % (10.0-50.0); Mean Corpuscular Hemoglobin 31.8 pg (28.0-32.0); Mean Corpuscular Volume 96.5 fL (80.0-100.0); Monocytes # (auto) 0.5 10 ^3/uL (0-1.3); Monocytes % (auto) 2.7 % (0.0-12.0); Neutrophils # (auto) 13.3 10 ^3/uL (1.6-8.6); Neutrophils % (auto) 74.9 % (37.0-80.0); Nucleated Red Blood Cells % 0.1 %; Platelet Count (auto) 245 10^3/uL (140-450); Red Blood Cells 3.95 10^6/uL (4.0-5.20); White Blood Cell 17.7 10^3/uL (4.4-10.8)
[2021-03-29] MEDS ORDERED: HEPARIN SODIUM (PORCINE) 5000 UNITS/ML 1ML VIAL IV ONE ×2 (10:00→17:30)
[2021-03-29 10:06] LABS: Albumin 2.2 g/dL (3.4-5.0); BUN/Creatinine Ratio 11.6; Potassium 3.1 mmol/L (3.5-5.1)
[2021-03-29 10:09] LABS: Bilirubin, Total 0.5 mg/dL (0.2-1.0)
[2021-03-29 10:14] LABS: Calcium 5.6 mg/dL (8.5-10.1)
[2021-03-29] MEDS: PANTOPRAZOLE 40 MG/10 ML VIAL INJ IV SCH (10:33)
[2021-03-29] MEDS: POTASSIUM EFFERVESENT TAB 25 MEQ PO SCH ×2 (10:34→22:00)
[2021-03-29] MEDS: ACETYLCYSTEINE ORAL for CIN 20%(200MG/ML) 4ML GT SCH ×2 (10:42→22:00)
[2021-03-29] MEDS ORDERED: CALCIUM GLUC 1,000mg/50ml-NS 50 ML IV ONE (12:15)
[2021-03-29] MEDS: POTASSIUM CHL 20MEQ/100ML 100 ML IV SCH ×2 (12:26→14:30)
[2021-03-29] MEDS: SODIUM BICARBONATE 50ML VIAL 75 ML in SOD CHL 0.45% 1,000 ML IV SCH (13:12)
[2021-03-29] MEDS ORDERED: Jevity 1.2 Cal/Fiber 1 Liter GT SCH (14:45)
[2021-03-29] MEDS: PHENYLEPHRINE INJ 40 MG in SODIUM CHL 0.9% 246 ML IV SCH ×2 (15:00→21:28)
[2021-03-29 17:01] LABS: INR 1.18 (0.9-1.15); Partial Thromboplastin Time 32.8 sec (23.0-31.2)
[2021-03-29 23:38] LABS: INR 1.17 (0.9-1.15); Partial Thromboplastin Time 32.2 sec (23.0-31.2)
[2021-03-29 23:51] LABS: BUN/Creatinine Ratio 11.3; Calcium 6.2 mg/dL (8.5-10.1); Potassium 3.5 mmol/L (3.5-5.1)
[2021-03-30] VITALS (82 sets, daily range): BP systolic 85–127; BP diastolic 34–78
[2021-03-30] MEDS ORDERED: HEPARIN SODIUM (PORCINE) 5000 UNITS/ML 1ML VIAL IV ONE (02:15)
[2021-03-30] MEDS: IPRATROPIUM BROM 0.5 MG/2.5ML INH SOL NEB SCH ×6 (02:47→22:18)
[2021-03-30] MEDS: ALBUTEROL SULF 2.5 MG/0.5ML(0.5%) NEB SOLN NEB SCH ×6 (02:47→22:18)
[2021-03-30] MEDS: PIPERACILLIN-TAZOB 2.25GM 50 ML IV SCH ×4 (03:00→21:16)
[2021-03-30] MEDS: MIDAZOLAM DRIP 50 mg/50mL 50 ML IV SCH (04:00)
[2021-03-30 04:13] LABS: Basophils # (auto) 0.1 10 ^3/uL (0-0.2); Basophils % (auto) 0.5 % (0.0-2.0); Eosinophils # (auto) 0.3 10 ^3/uL (0-0.8); Eosinophils % (auto) 1.8 % (0.0-7.0); Hematocrit 34.4 % (36.0-46.0); Hemoglobin 11.5 g/dL (12.2-16.2); Lymphocytes # (auto) 3.5 10 ^3/uL (0.4-5.4); Lymphocytes % (auto) 20.6 % (10.0-50.0); Mean Corpuscular Hemoglobin 32.3 pg (28.0-32.0); Mean Corpuscular Hgb Conc. 33.6 g/dL (32.0-36.0); Mean Corpuscular Volume 96.2 fL (80.0-100.0); Monocytes # (auto) 0.6 10 ^3/uL (0-1.3); Monocytes % (auto) 3.7 % (0.0-12.0); Neutrophils # (auto) 12.4 10 ^3/uL (1.6-8.6); Neutrophils % (auto) 73.4 % (37.0-80.0); Nucleated Red Blood Cells % 0.1 %; Platelet Count (auto) 246 10^3/uL (140-450); Red Blood Cells 3.58 10^6/uL (4.0-5.20); Red Cell Distribution Width 13.9 % (11.8-14.3); White Blood Cell 16.8 10^3/uL (4.4-10.8)
[2021-03-30] MEDS: PHENYLEPHRINE INJ 40 MG in SODIUM CHL 0.9% 246 ML IV SCH ×2 (04:23→10:15)
[2021-03-30] MEDS: PROPOFOL 100 ML IV SCH ×2 (04:24→08:01)
[2021-03-30 04:34] LABS: Albumin 1.9 g/dL (3.4-5.0); Calcium 6.2 mg/dL (8.5-10.1); Potassium 3.7 mmol/L (3.5-5.1)
[2021-03-30 04:41] LABS: BUN/Creatinine Ratio 10.7; Bilirubin, Total 0.6 mg/dL (0.2-1.0); Total Protein 5.9 g/dL (6.4-8.2)
[2021-03-30] MEDS: HEPARIN DRIP/D5W 100UNITS/ML 250 ML IV SCH ×3 (05:30→14:26)
[2021-03-30] MEDS: InsuLIN REG 1unit/0.01ml Soln (100units/ml) SC SCH ×4 (06:26→21:21)
[2021-03-30] MEDS: ACCU-CHEK COMFORT CURVE STRIP VI SCH ×4 (06:26→21:21)
[2021-03-30 07:12] LABS: INR 1.17 (0.9-1.15); Partial Thromboplastin Time 38.6 sec (23.0-31.2)
[2021-03-30] MEDS: SODIUM BICARBONATE 50ML VIAL 75 ML in SOD CHL 0.45% 1,000 ML IV SCH (07:38)
[2021-03-30] MEDS ORDERED: HEPARIN DRIP/D5W 100UNITS/ML 250 ML IV SCH (09:15)
[2021-03-30] MEDS: FUROSEMIDE 20 MG/2 ML VIAL IV SCH (10:13)
[2021-03-30] MEDS: PANTOPRAZOLE 40 MG/10 ML VIAL INJ IV SCH (10:13)
[2021-03-30] MEDS: POTASSIUM EFFERVESENT TAB 25 MEQ PO SCH ×2 (10:14→21:17)
[2021-03-30] MEDS: MAGNESIUM SULFATE 1GM/100ML 100 ML IV SCH ×3 (10:36→13:27)
[2021-03-30 14:00] LABS: INR 1.11 (0.9-1.15); Partial Thromboplastin Time 41.4 sec (23.0-31.2)
[2021-03-30] MEDS: AMIODARONE 450mg/250ml AE 250 ML IV SCH (14:11)
[2021-03-30 22:12] LABS: INR 1.08 (0.9-1.15); Partial Thromboplastin Time 56.3 sec (23.0-31.2)
[2021-03-31] VITALS (77 sets, daily range): BP systolic 92–140; BP diastolic 52–79
[2021-03-31] MEDS: HEPARIN DRIP/D5W 100UNITS/ML 250 ML IV SCH ×3 (00:03→17:47)
[2021-03-31] MEDS: PROPOFOL 100 ML IV SCH ×2 (00:07→16:54)
[2021-03-31] MEDS: IPRATROPIUM BROM 0.5 MG/2.5ML INH SOL NEB SCH ×6 (02:24→22:20)
[2021-03-31] MEDS: ALBUTEROL SULF 2.5 MG/0.5ML(0.5%) NEB SOLN NEB SCH ×6 (02:25→22:20)
[2021-03-31 04:22] LABS: Basophils # (auto) 0.1 10 ^3/uL (0-0.2); Basophils % (auto) 0.7 % (0.0-2.0); Eosinophils # (auto) 0.2 10 ^3/uL (0-0.8); Eosinophils % (auto) 1.8 % (0.0-7.0); Hematocrit 33.8 % (36.0-46.0); Hemoglobin 11.4 g/dL (12.2-16.2); Lymphocytes # (auto) 2.4 10 ^3/uL (0.4-5.4); Mean Corpuscular Hemoglobin 32.3 pg (28.0-32.0); Mean Corpuscular Hgb Conc. 33.7 g/dL (32.0-36.0); Monocytes # (auto) 0.7 10 ^3/uL (0-1.3); Monocytes % (auto) 5.5 % (0.0-12.0); Neutrophils # (auto) 8.8 10 ^3/uL (1.6-8.6); Nucleated Red Blood Cells % 0.1 %; Platelet Count (auto) 197 10^3/uL (140-450); Red Blood Cells 3.53 10^6/uL (4.0-5.20); White Blood Cell 12.2 10^3/uL (4.4-10.8)
[2021-03-31 04:51] LABS: Albumin 1.8 g/dL (3.4-5.0); Calcium 7.4 mg/dL (8.5-10.1); Magnesium 1.5 mg/dL (1.6-2.6); Potassium 3.3 mmol/L (3.5-5.1)
[2021-03-31 04:55] LABS: BUN/Creatinine Ratio 11.3; Bilirubin, Total 0.9 mg/dL (0.2-1.0); Total Protein 5.9 g/dL (6.4-8.2)
[2021-03-31] MEDS: PIPERACILLIN-TAZOB 2.25GM 50 ML IV SCH ×4 (05:20→21:50)
[2021-03-31] MEDS: InsuLIN REG 1unit/0.01ml Soln (100units/ml) SC SCH ×4 (05:23→21:28)
[2021-03-31] MEDS: ACCU-CHEK COMFORT CURVE STRIP VI SCH ×4 (05:24→21:29)
[2021-03-31] MEDS: AMIODARONE 450mg/250ml AE 250 ML IV SCH ×3 (05:25→21:32)
[2021-03-31 07:44] LABS: INR 1.07 (0.9-1.15); Partial Thromboplastin Time 69.8 sec (23.0-31.2)
[2021-03-31] MEDS: POTASSIUM CHL 20MEQ/100ML 100 ML IV SCH ×2 (08:20→10:16)
[2021-03-31] MEDS: POTASSIUM EFFERVESENT TAB 25 MEQ PO SCH ×2 (10:00→21:28)
[2021-03-31] MEDS: PANTOPRAZOLE 40 MG/10 ML VIAL INJ IV SCH (10:17)
[2021-03-31] MEDS: FUROSEMIDE 20 MG/2 ML VIAL IV SCH (10:17)
[2021-03-31] MEDS: PHENYLEPHRINE INJ 40 MG in SODIUM CHL 0.9% 246 ML IV SCH (10:52)
[2021-03-31] MEDS: MAGNESIUM SULFATE 1GM/100ML 100 ML IV SCH ×2 (12:46→13:41)
[2021-03-31 15:57] LABS: INR 1.14 (0.9-1.15)
[2021-03-31 16:02] LABS: Partial Thromboplastin Time > 139.0 sec (23.0-31.2)
[2021-03-31] MEDS: VANCOMYCIN 750mg/250ml 250 ML IV SCH (18:15)
[2021-03-31] MEDS: MIDAZOLAM DRIP 50 mg/50mL 50 ML IV SCH (20:28)
[2021-03-31] MEDS: MAGNESIUM OXIDE 400 MG TAB PO SCH (21:28)
[2021-04-01] VITALS (87 sets, daily range): BP systolic 104–162; BP diastolic 44–73
[2021-04-01] MEDS: PHENYLEPHRINE INJ 40 MG in SODIUM CHL 0.9% 246 ML IV SCH ×2 (00:11→23:35)
[2021-04-01 00:33] LABS: INR 1.13 (0.9-1.15)
[2021-04-01 00:35] LABS: Partial Thromboplastin Time > 139.0 sec (23.0-31.2)
[2021-04-01] MEDS: IPRATROPIUM BROM 0.5 MG/2.5ML INH SOL NEB SCH ×6 (02:22→22:10)
[2021-04-01] MEDS: ALBUTEROL SULF 2.5 MG/0.5ML(0.5%) NEB SOLN NEB SCH ×6 (02:22→22:10)
[2021-04-01 03:59] LABS: Basophils # (auto) 0.1 10 ^3/uL (0-0.2); Basophils % (auto) 0.7 % (0.0-2.0); Eosinophils # (auto) 0.3 10 ^3/uL (0-0.8); Eosinophils % (auto) 2.6 % (0.0-7.0); Hematocrit 33.2 % (36.0-46.0); Hemoglobin 11.1 g/dL (12.2-16.2); Lymphocytes # (auto) 2.7 10 ^3/uL (0.4-5.4); Lymphocytes % (auto) 23.8 % (10.0-50.0); Mean Corpuscular Hemoglobin 32.2 pg (28.0-32.0); Mean Corpuscular Hgb Conc. 33.5 g/dL (32.0-36.0); Mean Corpuscular Volume 96.1 fL (80.0-100.0); Monocytes # (auto) 0.8 10 ^3/uL (0-1.3); Monocytes % (auto) 7.1 % (0.0-12.0); Neutrophils # (auto) 7.5 10 ^3/uL (1.6-8.6); Neutrophils % (auto) 65.8 % (37.0-80.0); Platelet Count (auto) 214 10^3/uL (140-450); Red Blood Cells 3.46 10^6/uL (4.0-5.20); White Blood Cell 11.5 10^3/uL (4.4-10.8)
[2021-04-01] MEDS: HEPARIN DRIP/D5W 100UNITS/ML 250 ML IV SCH ×3 (04:11→22:00)
[2021-04-01] MEDS: PIPERACILLIN-TAZOB 2.25GM 50 ML IV SCH ×4 (04:12→21:23)
[2021-04-01 04:22] LABS: Potassium 3.8 mmol/L (3.5-5.1)
[2021-04-01 04:27] LABS: BUN/Creatinine Ratio 11.2; Calcium 8.5 mg/dL (8.5-10.1)
[2021-04-01] MEDS: ACCU-CHEK COMFORT CURVE STRIP VI SCH ×4 (07:00→21:25)
[2021-04-01] MEDS: InsuLIN REG 1unit/0.01ml Soln (100units/ml) SC SCH ×4 (07:00→21:25)
[2021-04-01 09:36] LABS: INR 1.11 (0.9-1.15)
[2021-04-01 10:01] LABS: Partial Thromboplastin Time > 139.0 sec (23.0-31.2)
[2021-04-01] MEDS: MAGNESIUM OXIDE 400 MG TAB PO SCH ×2 (10:20→21:25)
[2021-04-01] MEDS: FUROSEMIDE 20 MG/2 ML VIAL IV SCH (10:20)
[2021-04-01] MEDS: POTASSIUM EFFERVESENT TAB 25 MEQ PO SCH ×2 (10:20→21:24)
[2021-04-01] MEDS: PANTOPRAZOLE 40 MG/10 ML VIAL INJ IV SCH (10:20)
[2021-04-01] MEDS: VANCOMYCIN 750mg/250ml 250 ML IV SCH (18:50)
[2021-04-01 20:58] LABS: INR 1.07 (0.9-1.15); Partial Thromboplastin Time 52.5 sec (23.0-31.2)
[2021-04-02] VITALS (33 sets, daily range): BP systolic 98–145; BP diastolic 54–81
[2021-04-02] MEDS: AMIODARONE 450mg/250ml AE 250 ML IV SCH ×2 (00:16→16:15)
[2021-04-02] MEDS: MIDAZOLAM DRIP 50 mg/50mL 50 ML IV SCH (00:17)
[2021-04-02] MEDS: PROPOFOL 100 ML IV SCH (00:17)
[2021-04-02] MEDS: ALBUTEROL SULF 2.5 MG/0.5ML(0.5%) NEB SOLN NEB SCH ×6 (02:01→22:03)
[2021-04-02] MEDS: IPRATROPIUM BROM 0.5 MG/2.5ML INH SOL NEB SCH ×6 (02:01→22:03)
[2021-04-02] MEDS: PIPERACILLIN-TAZOB 2.25GM 50 ML IV SCH ×5 (03:00→21:30)
[2021-04-02 04:32] LABS: Basophils # (auto) 0.1 10 ^3/uL (0-0.2); Basophils % (auto) 0.6 % (0.0-2.0); Eosinophils # (auto) 0.2 10 ^3/uL (0-0.8); Eosinophils % (auto) 2.7 % (0.0-7.0); Hematocrit 33.2 % (36.0-46.0); Hemoglobin 11.2 g/dL (12.2-16.2); Lymphocytes # (auto) 2.3 10 ^3/uL (0.4-5.4); Lymphocytes % (auto) 26.5 % (10.0-50.0); Mean Corpuscular Hemoglobin 32.5 pg (28.0-32.0); Mean Corpuscular Hgb Conc. 33.6 g/dL (32.0-36.0); Mean Corpuscular Volume 96.6 fL (80.0-100.0); Monocytes # (auto) 0.7 10 ^3/uL (0-1.3); Monocytes % (auto) 8.1 % (0.0-12.0); Neutrophils # (auto) 5.3 10 ^3/uL (1.6-8.6); Neutrophils % (auto) 62.1 % (37.0-80.0); Nucleated Red Blood Cells % 0.1 %; Platelet Count (auto) 204 10^3/uL (140-450); Red Blood Cells 3.43 10^6/uL (4.0-5.20); Red Cell Distribution Width 13.8 % (11.8-14.3); White Blood Cell 8.5 10^3/uL (4.4-10.8)
[2021-04-02 04:47] LABS: INR 1.06 (0.9-1.15); Partial Thromboplastin Time 62.5 sec (23.0-31.2)
[2021-04-02 04:53] LABS: Chloride 98 mmol/L (98-107); Potassium 4.4 mmol/L (3.5-5.1); Sodium 135 mmol/L (136-145)
[2021-04-02 05:04] LABS: Alanine Aminotransferase 16 U/L (13-56); Albumin 1.9 g/dL (3.4-5.0); Alkaline Phosphatase 53 U/L (45-117); Anion Gap 6 (5-15); Aspartate Aminotransferase 37 U/L (15-37); BUN/Creatinine Ratio 11.4; Bilirubin, Direct < 0.1 mg/dL (0-0.2); Bilirubin, Total 0.8 mg/dL (0.2-1.0); Blood Urea Nitrogen 18 mg/dL (7-18); Calcium 8.9 mg/dL (8.5-10.1); Carbon Dioxide 31 mmol/L (21-32); GFR African American 42 mL/min; GFR Non-African American 35 mL/min; Glucose 92 mg/dL (74-106); Phosphorus 3.4 mg/dL (2.5-4.90); Total Protein 6.6 g/dL (6.4-8.2)
[2021-04-02] MEDS: InsuLIN REG 1unit/0.01ml Soln (100units/ml) SC SCH ×4 (05:05→21:45)
[2021-04-02] MEDS: ACCU-CHEK COMFORT CURVE STRIP VI SCH ×4 (05:05→21:45)
[2021-04-02] MEDS: FUROSEMIDE 20 MG/2 ML VIAL IV SCH (09:34)
[2021-04-02] MEDS: PANTOPRAZOLE 40 MG/10 ML VIAL INJ IV SCH (09:34)
[2021-04-02] MEDS: MAGNESIUM OXIDE 400 MG TAB PO SCH ×2 (09:34→21:46)
[2021-04-02] MEDS: POTASSIUM EFFERVESENT TAB 25 MEQ PO SCH ×2 (09:35→21:35)
[2021-04-02 10:42] LABS: INR 1.08 (0.9-1.15); Partial Thromboplastin Time 67.1 sec (23.0-31.2)
[2021-04-02] MEDS: HEPARIN DRIP/D5W 100UNITS/ML 250 ML IV SCH ×2 (14:51→22:40)
[2021-04-02] MEDS: PHENYLEPHRINE INJ 40 MG in SODIUM CHL 0.9% 246 ML IV SCH (16:15)
[2021-04-02] MEDS: VANCOMYCIN 750mg/250ml 250 ML IV SCH (18:21)
[2021-04-03] VITALS (47 sets, daily range): BP systolic 104–135; BP diastolic 51–79
[2021-04-03] MEDS: MIDAZOLAM DRIP 50 mg/50mL 50 ML IV SCH (01:15)
[2021-04-03] MEDS: PROPOFOL 100 ML IV SCH (01:45)
[2021-04-03] MEDS: IPRATROPIUM BROM 0.5 MG/2.5ML INH SOL NEB SCH ×6 (02:04→22:30)
[2021-04-03] MEDS: ALBUTEROL SULF 2.5 MG/0.5ML(0.5%) NEB SOLN NEB SCH ×6 (02:04→22:30)
[2021-04-03] MEDS: PIPERACILLIN-TAZOB 2.25GM 50 ML IV SCH ×4 (02:51→22:16)
[2021-04-03 04:34] LABS: Basophils # (auto) 0 10 ^3/uL (0-0.2); Basophils % (auto) 0.5 % (0.0-2.0); Eosinophils # (auto) 0.3 10 ^3/uL (0-0.8); Hematocrit 30.5 % (36.0-46.0); Hemoglobin 10.5 g/dL (12.2-16.2); Lymphocytes # (auto) 2.7 10 ^3/uL (0.4-5.4); Lymphocytes % (auto) 31.4 % (10.0-50.0); Mean Corpuscular Hemoglobin 32.8 pg (28.0-32.0); Mean Corpuscular Hgb Conc. 34.4 g/dL (32.0-36.0); Mean Corpuscular Volume 95.4 fL (80.0-100.0); Monocytes # (auto) 0.7 10 ^3/uL (0-1.3); Monocytes % (auto) 8.2 % (0.0-12.0); Neutrophils # (auto) 4.9 10 ^3/uL (1.6-8.6); Neutrophils % (auto) 56.9 % (37.0-80.0); Nucleated Red Blood Cells % 0.1 %; Platelet Count (auto) 236 10^3/uL (140-450); Red Cell Distribution Width 13.8 % (11.8-14.3); White Blood Cell 8.6 10^3/uL (4.4-10.8)
[2021-04-03 04:46] LABS: INR 1.13 (0.9-1.15)
[2021-04-03] MEDS: ACCU-CHEK COMFORT CURVE STRIP VI SCH ×4 (06:16→22:17)
[2021-04-03] MEDS: InsuLIN REG 1unit/0.01ml Soln (100units/ml) SC SCH ×4 (06:16→22:00)
[2021-04-03] MEDS: AMIODARONE 450mg/250ml AE 250 ML IV SCH ×2 (07:15→22:15)
[2021-04-03] MEDS: HEPARIN DRIP/D5W 100UNITS/ML 250 ML IV SCH ×2 (07:50→14:42)
[2021-04-03] MEDS: PHENYLEPHRINE INJ 40 MG in SODIUM CHL 0.9% 246 ML IV SCH (08:55)
[2021-04-03 09:18] LABS: BUN/Creatinine Ratio 10.7; Calcium 8.9 mg/dL (8.5-10.1); Potassium 3.3 mmol/L (3.5-5.1)
[2021-04-03] MEDS: POTASSIUM CHL 20MEQ/100ML 100 ML IV SCH ×4 (09:45→12:44)
[2021-04-03] MEDS: acetaZOLAMIDE SODIUM 500 MG VL IV SCH ×3 (10:00→22:36)
[2021-04-03] MEDS: POTASSIUM EFFERVESENT TAB 25 MEQ PO SCH ×3 (10:00→22:00)
[2021-04-03] MEDS: PANTOPRAZOLE 40 MG/10 ML VIAL INJ IV SCH ×2 (10:00→10:26)
[2021-04-03] MEDS: FUROSEMIDE 20 MG/2 ML VIAL IV SCH ×2 (10:00→10:26)
[2021-04-03] MEDS: MAGNESIUM OXIDE 400 MG TAB PO SCH ×3 (10:00→22:00)
[2021-04-04] VITALS (68 sets, daily range): BP systolic 108–165; BP diastolic 42–146
[2021-04-04] MEDS: VANCOMYCIN 750mg/250ml 250 ML IV SCH (01:01)
[2021-04-04] MEDS: MIDAZOLAM DRIP 50 mg/50mL 50 ML IV SCH (01:15)
[2021-04-04] MEDS: PHENYLEPHRINE INJ 40 MG in SODIUM CHL 0.9% 246 ML IV SCH ×2 (01:35→18:15)
[2021-04-04] MEDS: PROPOFOL 100 ML IV SCH ×2 (01:45→14:14)
[2021-04-04] MEDS: IPRATROPIUM BROM 0.5 MG/2.5ML INH SOL NEB SCH ×6 (02:16→22:18)
[2021-04-04] MEDS: ALBUTEROL SULF 2.5 MG/0.5ML(0.5%) NEB SOLN NEB SCH ×6 (02:16→22:18)
[2021-04-04] MEDS: HEPARIN DRIP/D5W 100UNITS/ML 250 ML IV SCH ×3 (03:02→16:39)
[2021-04-04 04:20] LABS: Hematocrit 33.3 % (36.0-46.0); Hemoglobin 11.1 g/dL (12.2-16.2); Mean Corpuscular Hemoglobin 32.6 pg (28.0-32.0); Mean Corpuscular Hgb Conc. 33.3 g/dL (32.0-36.0); Mean Corpuscular Volume 97.9 fL (80.0-100.0); Platelet Count (auto) 197 10^3/uL (140-450); Red Blood Cells 3.41 10^6/uL (4.0-5.20); Red Cell Distribution Width 14.1 % (11.8-14.3); White Blood Cell 9.9 10^3/uL (4.4-10.8)
[2021-04-04] MEDS: PIPERACILLIN-TAZOB 2.25GM 50 ML IV SCH ×4 (04:29→20:34)
[2021-04-04 04:37] LABS: INR 1.12 (0.9-1.15); Partial Thromboplastin Time 55.8 sec (23.0-31.2)
[2021-04-04 04:39] LABS: Albumin 2.2 g/dL (3.4-5.0); Potassium 3.9 mmol/L (3.5-5.1)
[2021-04-04 04:45] LABS: BUN/Creatinine Ratio 9.9; Bilirubin, Total 0.6 mg/dL (0.2-1.0); Total Protein 6.7 g/dL (6.4-8.2)
[2021-04-04 04:50] LABS: Basophils % (manual) 0 (0.0-2.0); Blast Cells 0; Metamyelocytes % 0; Promyelocytes % 0; Reactive Lymphocytes 0
[2021-04-04 05:01] LABS: Band Neutrophils % (manual) 8; Eosinophils % (manual) 3 (0-7); Lymphocytes % (manual) 36 (10.0-50.0); Monocytes % (manual) 8 (0-12); Myelocytes % 1
[2021-04-04] MEDS: InsuLIN REG 1unit/0.01ml Soln (100units/ml) SC SCH ×4 (07:00→22:00)
[2021-04-04] MEDS: ACCU-CHEK COMFORT CURVE STRIP VI SCH ×4 (07:18→22:26)
[2021-04-04] MEDS: POTASSIUM EFFERVESENT TAB 25 MEQ PO SCH ×2 (09:40→22:01)
[2021-04-04] MEDS: PANTOPRAZOLE 40 MG/10 ML VIAL INJ IV SCH (09:41)
[2021-04-04] MEDS: MAGNESIUM OXIDE 400 MG TAB PO SCH ×2 (09:42→22:01)
[2021-04-04] MEDS: FUROSEMIDE 20 MG/2 ML VIAL IV SCH (09:42)
[2021-04-04] MEDS ORDERED: ANGIOMAX 250 MG VIAL IV ONE (10:00)
[2021-04-04] MEDS ORDERED: acetaZOLAMIDE SODIUM 500 MG VL IV SCH (10:00)
[2021-04-04] MEDS ORDERED: MIDAZOLAM HCL 1MG/1ML-2 ML VIAL ONE ×2 (10:01→12:06)
[2021-04-04] MEDS ORDERED: fentaNYL CITRATE 100 MCG/2 ML VL ONE ×2 (10:01→12:12)
[2021-04-04] MEDS ORDERED: SODIUM CHL 0.9% 0 ML ONE (10:01)
[2021-04-04] MEDS ORDERED: LIDOCAINE 2%HCL (LOCAL ANESTH.) INJ 20ML MDV ONE (10:10)
[2021-04-04] MEDS ORDERED: IODIXANOL 320MG/ML 100ML BTL IV ONE ×3 (10:10→12:33)
[2021-04-04] MEDS ORDERED: diphenhdrAMINE HCL 50 MG/1 ML VL ONE (10:22)
[2021-04-04] MEDS ORDERED: HEPARIN SODIUM (PORCINE) 5000 UNITS/ML 1ML VIAL ONE ×2 (11:30→11:51)
[2021-04-04] MEDS: AMIODARONE 450mg/250ml AE 250 ML IV SCH (13:15)
[2021-04-04 14:51] LABS: Hematocrit 30.4 % (36.0-46.0); Hemoglobin 9.9 g/dL (12.2-16.2); Mean Corpuscular Hemoglobin 32.4 pg (28.0-32.0); Mean Corpuscular Hgb Conc. 32.7 g/dL (32.0-36.0); Mean Corpuscular Volume 99.2 fL (80.0-100.0); Platelet Count (auto) 209 10^3/uL (140-450); Red Blood Cells 3.06 10^6/uL (4.0-5.20); Red Cell Distribution Width 13.9 % (11.8-14.3); White Blood Cell 12.7 10^3/uL (4.4-10.8)
[2021-04-04 14:55] LABS: Basophils % (manual) 0 (0.0-2.0); Blast Cells 0; Metamyelocytes % 0; Myelocytes % 0; Promyelocytes % 0; Reactive Lymphocytes 0
[2021-04-04 15:12] LABS: Band Neutrophils % (manual) 1; Eosinophils % (manual) 4 (0-7); Lymphocytes % (manual) 23 (10.0-50.0); Monocytes % (manual) 3 (0-12)
[2021-04-05] VITALS (81 sets, daily range): BP systolic 105–148; BP diastolic 42–81
[2021-04-05] MEDS: MIDAZOLAM DRIP 50 mg/50mL 50 ML IV SCH (01:15)
[2021-04-05] MEDS: ALBUTEROL SULF 2.5 MG/0.5ML(0.5%) NEB SOLN NEB SCH ×6 (02:25→22:05)
[2021-04-05] MEDS: IPRATROPIUM BROM 0.5 MG/2.5ML INH SOL NEB SCH ×6 (02:25→22:05)
[2021-04-05] MEDS: PIPERACILLIN-TAZOB 2.25GM 50 ML IV SCH ×4 (02:38→20:21)
[2021-04-05 04:02] LABS: Hematocrit 28.1 % (36.0-46.0); Hemoglobin 9.3 g/dL (12.2-16.2); Mean Corpuscular Hemoglobin 32.4 pg (28.0-32.0); Mean Corpuscular Hgb Conc. 33.1 g/dL (32.0-36.0); Mean Corpuscular Volume 97.9 fL (80.0-100.0); Platelet Count (auto) 201 10^3/uL (140-450); Red Blood Cells 2.87 10^6/uL (4.0-5.20); White Blood Cell 10.4 10^3/uL (4.4-10.8)
[2021-04-05 04:11] LABS: Band Neutrophils % (manual) 0; Basophils % (manual) 0 (0.0-2.0); Blast Cells 0; Metamyelocytes % 0; Myelocytes % 0; Promyelocytes % 0; Reactive Lymphocytes 0
[2021-04-05] MEDS: AMIODARONE 450mg/250ml AE 250 ML IV SCH ×2 (04:15→19:15)
[2021-04-05 04:37] LABS: Eosinophils % (manual) 5 (0-7); Lymphocytes % (manual) 27 (10.0-50.0); Monocytes % (manual) 4 (0-12)
[2021-04-05 05:00] LABS: INR 1.16 (0.9-1.15)
[2021-04-05 05:02] LABS: Partial Thromboplastin Time 122.4 sec (23.0-31.2)
[2021-04-05] MEDS: VANCOMYCIN 750mg/250ml 250 ML IV SCH (05:55)
[2021-04-05] MEDS: ACCU-CHEK COMFORT CURVE STRIP VI SCH ×4 (06:07→20:58)
[2021-04-05] MEDS: InsuLIN REG 1unit/0.01ml Soln (100units/ml) SC SCH ×4 (06:11→20:58)
[2021-04-05] MEDS: HEPARIN DRIP/D5W 100UNITS/ML 250 ML IV SCH ×2 (06:24→13:26)
[2021-04-05] MEDS: FUROSEMIDE 20 MG/2 ML VIAL IV SCH (09:50)
[2021-04-05] MEDS: PANTOPRAZOLE 40 MG/10 ML VIAL INJ IV SCH (09:50)
[2021-04-05] MEDS: POTASSIUM EFFERVESENT TAB 25 MEQ PO SCH ×2 (09:51→20:22)
[2021-04-05] MEDS: MAGNESIUM OXIDE 400 MG TAB PO SCH ×2 (09:51→20:22)
[2021-04-05] MEDS: PHENYLEPHRINE INJ 40 MG in SODIUM CHL 0.9% 246 ML IV SCH (10:55)
[2021-04-05 12:02] LABS: INR 1.08 (0.9-1.15); Partial Thromboplastin Time 66.3 sec (23.0-31.2)
[2021-04-05 18:13] LABS: INR 1.08 (0.9-1.15)
[2021-04-05 18:22] LABS: Partial Thromboplastin Time 70.9 sec (23.0-31.2)
[2021-04-06] VITALS (27 sets, daily range): BP systolic 97–149; BP diastolic 36–73
[2021-04-06 00:19] LABS: INR 1.03 (0.9-1.15); Partial Thromboplastin Time 56.8 sec (23.0-31.2)
[2021-04-06] MEDS: HEPARIN DRIP/D5W 100UNITS/ML 250 ML IV SCH ×3 (00:20→13:44)
[2021-04-06] MEDS: MIDAZOLAM DRIP 50 mg/50mL 50 ML IV SCH (01:15)
[2021-04-06] MEDS: PROPOFOL 100 ML IV SCH (01:45)
[2021-04-06] MEDS: IPRATROPIUM BROM 0.5 MG/2.5ML INH SOL NEB SCH ×6 (02:21→22:27)
[2021-04-06] MEDS: ALBUTEROL SULF 2.5 MG/0.5ML(0.5%) NEB SOLN NEB SCH ×6 (02:21→22:27)
[2021-04-06 05:01] LABS: Hematocrit 25.6 % (36.0-46.0); Hemoglobin 8.6 g/dL (12.2-16.2); Mean Corpuscular Hemoglobin 32.8 pg (28.0-32.0); Mean Corpuscular Hgb Conc. 33.5 g/dL (32.0-36.0); Mean Corpuscular Volume 97.8 fL (80.0-100.0); Platelet Count (auto) 190 10^3/uL (140-450); Red Blood Cells 2.61 10^6/uL (4.0-5.20); Red Cell Distribution Width 13.8 % (11.8-14.3); White Blood Cell 9.6 10^3/uL (4.4-10.8)
[2021-04-06 05:15] LABS: Albumin 2.1 g/dL (3.4-5.0); Calcium 8.9 mg/dL (8.5-10.1); Potassium 3.8 mmol/L (3.5-5.1)
[2021-04-06 05:21] LABS: BUN/Creatinine Ratio 8.2; Bilirubin, Total 0.4 mg/dL (0.2-1.0); Phosphorus 3.8 mg/dL (2.5-4.90); Total Protein 6.2 g/dL (6.4-8.2)
[2021-04-06 05:23] LABS: Basophils % (manual) 0 (0.0-2.0); Blast Cells 0; Metamyelocytes % 0; Myelocytes % 0; Promyelocytes % 0; Reactive Lymphocytes 0
[2021-04-06 06:00] LABS: Band Neutrophils % (manual) 3; Eosinophils % (manual) 6 (0-7); Lymphocytes % (manual) 23 (10.0-50.0); Monocytes % (manual) 4 (0-12)
[2021-04-06] MEDS: ACCU-CHEK COMFORT CURVE STRIP VI SCH ×4 (06:14→22:00)
[2021-04-06] MEDS: InsuLIN REG 1unit/0.01ml Soln (100units/ml) SC SCH ×4 (06:14→22:00)
[2021-04-06] MEDS: FUROSEMIDE 20 MG/2 ML VIAL IV SCH (09:21)
[2021-04-06] MEDS: cefTRIAXone 1GM/50ML D5W 50 ML IV SCH (09:21)
[2021-04-06] MEDS: PANTOPRAZOLE 40 MG/10 ML VIAL INJ IV SCH (09:21)
[2021-04-06] MEDS: POTASSIUM EFFERVESENT TAB 25 MEQ PO SCH ×2 (10:00→22:00)
[2021-04-06] MEDS: AMIODARONE 450mg/250ml AE 250 ML IV SCH (10:15)
[2021-04-06 11:19] LABS: INR 1.04 (0.9-1.15); Partial Thromboplastin Time 65.4 sec (23.0-31.2)
[2021-04-06] MEDS: VANCOMYCIN 750mg/250ml 250 ML IV SCH (11:48)
[2021-04-06] MEDS: MORPHINE SULF INJ 2 MG/ML SYRINGE 1ML IV PRN ×2 (12:33→20:59)
[2021-04-07] VITALS (20 sets, daily range): BP systolic 113–143; BP diastolic 42–69
[2021-04-07] MEDS: IPRATROPIUM BROM 0.5 MG/2.5ML INH SOL NEB SCH ×4 (02:19→14:13)
[2021-04-07] MEDS: ALBUTEROL SULF 2.5 MG/0.5ML(0.5%) NEB SOLN NEB SCH ×4 (02:19→14:13)
[2021-04-07 04:40] LABS: INR 1.08 (0.9-1.15); Partial Thromboplastin Time 57.2 sec (23.0-31.2)
[2021-04-07] MEDS: HEPARIN DRIP/D5W 100UNITS/ML 250 ML IV SCH (05:08)
[2021-04-07] MEDS: InsuLIN REG 1unit/0.01ml Soln (100units/ml) SC SCH ×3 (06:31→17:00)
[2021-04-07] MEDS: ACCU-CHEK COMFORT CURVE STRIP VI SCH ×3 (06:31→17:00)
[2021-04-07] MEDS: cefTRIAXone 1GM/50ML D5W 50 ML IV SCH (09:12)
[2021-04-07] MEDS: POTASSIUM EFFERVESENT TAB 25 MEQ PO SCH (09:58)
[2021-04-07] MEDS: FUROSEMIDE 20 MG/2 ML VIAL IV SCH (09:58)
[2021-04-07] MEDS: PANTOPRAZOLE 40 MG/10 ML VIAL INJ IV SCH (09:58)
[2021-04-07] MEDS ORDERED: APIXABAN 5 MG TAB PO SCH (10:00)
[2021-04-07] MEDS ORDERED: ARTIFICIAL TEARS 15ml EACHEYE PRN (10:30)
[2021-04-14] MEDS ORDERED: APIXABAN 5 MG TAB PO SCH (10:00)
== END 2021-04-07 18:15 | DRG 710 ==
LOC: ER 00:31 → EDBD 00:31 → ICU WEST 02:39
PROVIDERS: ADMIT Nurse Practitioner Family; ATTEND Internal Medicine
PROC: 5A1955Z Respiratory Ventilation, Greater than 96 Consecutive Hours (ICD-10-PCS; 2021-03-28)
PROC: 0BH17EZ Insertion of Endotracheal Airway into Trachea, Via Natural or Artificial Opening (ICD-10-PCS; 2021-03-28)
PROC: 05HB33Z Insertion of Infusion Device into Right Basilic Vein, Percutaneous Approach (ICD-10-PCS; principal; 2021-04-04)
PROC: 05HB33Z Insertion of Infusion Device into Right Basilic Vein, Percutaneous Approach (ICD-10-PCS; 2021-04-04)
PROC: 06H03DZ Insertion of Intraluminal Device into Inferior Vena Cava, Percutaneous Approach (ICD-10-PCS; 2021-04-04)
PROC: 02CR3ZZ Extirpation of Matter from Left Pulmonary Artery, Percutaneous Approach (ICD-10-PCS; 2021-04-04)
PROC: 06C03ZZ Extirpation of Matter from Inferior Vena Cava, Percutaneous Approach (ICD-10-PCS; 2021-04-04)
PROC: 02CP3ZZ Extirpation of Matter from Pulmonary Trunk, Percutaneous Approach (ICD-10-PCS; 2021-04-04)
PROC: 02CQ3ZZ Extirpation of Matter from Right Pulmonary Artery, Percutaneous Approach (ICD-10-PCS; 2021-04-04)
DX: A41.51 Sepsis due to Escherichia coli [E. coli] (principal); I26.99 Other pulmonary embolism without acute cor pulmonale; J96.21 Acute and chronic respiratory failure with hypoxia; G92 Toxic encephalopathy; J18.9 Pneumonia, unspecified organism; R57.0 Cardiogenic shock; R65.21 Severe sepsis with septic shock; G93.1 Anoxic brain damage, not elsewhere classified; I50.43 Acute on chronic combined systolic (congestive) and diastolic (congestive) heart failure; I82.402 Acute embolism and thrombosis of unspecified deep veins of left lower extremity; J91.8 Pleural effusion in other conditions classified elsewhere; N17.9 Acute kidney failure, unspecified; N18.30 Chronic kidney disease, stage 3 unspecified; E87.8 Other disorders of electrolyte and fluid balance, not elsewhere classified; N39.0 Urinary tract infection, site not specified; E66.01 Morbid (severe) obesity due to excess calories; E87.6 Hypokalemia; I48.20 Chronic atrial fibrillation, unspecified; I42.9 Cardiomyopathy, unspecified; K21.9 Gastro-esophageal reflux disease without esophagitis; E88.09 Other disorders of plasma-protein metabolism, not elsewhere classified; Z20.822 Contact with and (suspected) exposure to COVID-19; I25.10 Atherosclerotic heart disease of native coronary artery without angina pectoris; J44.0 Chronic obstructive pulmonary disease with (acute) lower respiratory infection; E11.65 Type 2 diabetes mellitus with hyperglycemia; Z68.41 Body mass index [BMI] 40.0-44.9, adult; Z86.73 Personal history of transient ischemic attack (TIA), and cerebral infarction without residual deficits; Z80.1 Family history of malignant neoplasm of trachea, bronchus and lung; Z82.3 Family history of stroke; Z90.49 Acquired absence of other specified parts of digestive tract; I27.24 Chronic thromboembolic pulmonary hypertension
CPT/HCPCS: 36415; 36600; 37191; 51702; 70450; 71045; 71275; 80048; 80053; 80076; 80202; 81001; 82805; 82962; 83036; 83605; 83735; 83880; 84100; 84132; 84443; 84484; 85007; 85025; 85027; 85610; 85730; 86850; 86900; 86901; 86920; 87040; 87070; 87077; 87081; 87086; 87088; 87186; 87205; 87426; 92610; 93005; 93306; 93970; 94002; 94003; 94640; 95819; 96361; 96365; 96375; 97110; 99152; 99153; A4565; A4618; C9113; G0378; J0330; J0696; J2250; J2543; J2704; J3480; J3490; J7060; Q9967

== ENCOUNTER 2021-06-16 10:05 | Inpatient (IN) | payer MEDICAID ==
[~2021-06-16] VITALS: Ht 160 cm; Wt 117.1 kg
[2021-06-16 10:53] LABS: Basophils # (auto) 0.1 10 ^3/uL (0-0.2); Basophils % (auto) 0.5 % (0.0-2.0); Eosinophils # (auto) 0.1 10 ^3/uL (0-0.8); Eosinophils % (auto) 0.9 % (0.0-7.0); Hematocrit 33.9 % (36.0-46.0); Hemoglobin 11.2 g/dL (12.2-16.2); Lymphocytes # (auto) 2.2 10 ^3/uL (0.4-5.4); Lymphocytes % (auto) 20.6 % (10.0-50.0); Mean Corpuscular Hemoglobin 29.8 pg (28.0-32.0); Mean Corpuscular Hgb Conc. 33.1 g/dL (32.0-36.0); Mean Corpuscular Volume 90.1 fL (80.0-100.0); Monocytes # (auto) 0.7 10 ^3/uL (0-1.3); Monocytes % (auto) 6.3 % (0.0-12.0); Neutrophils # (auto) 7.6 10 ^3/uL (1.6-8.6); Neutrophils % (auto) 71.7 % (37.0-80.0); Nucleated Red Blood Cells % 0.1 %; Red Blood Cells 3.76 10^6/uL (4.0-5.20); Red Cell Distribution Width 16.4 % (11.8-14.3); White Blood Cell 10.7 10^3/uL (4.4-10.8)
[2021-06-16 11:11] LABS: Albumin 2.8 g/dL (3.4-5.0)
[2021-06-16 11:19] LABS: BUN/Creatinine Ratio 14.8; Bilirubin, Total 0.6 mg/dL (0.2-1.0); Total Protein 7.3 g/dL (6.4-8.2)
[2021-06-16 11:26] LABS: Calcium 5.2 mg/dL (8.5-10.1)
[2021-06-16 12:39] LABS: Urine Bacteria MANY /hpf (None Seen); Urine Blood Negative /uL (Negative); Urine Specific Gravity 1.018 (1.001-1.035); Urine WBC 29 /hpf (0 - 5)
[2021-06-16] MEDS ORDERED: cefTRIAXone 1GM/50ML D5W 50 ML IV ONE (13:30)
[2021-06-16] MEDS ORDERED: CALCIUM CHL 100MG/ML 500 MG in D5W 5% 100 ML IV ONE (13:30)
[2021-06-16] MEDS ORDERED: POTASSIUM EFFERVESENT TAB 25 MEQ PO ONE (13:30)
[2021-06-16] MEDS ORDERED: LACTATED RINGER'S 2,000 ML IV ONE (15:45)
[2021-06-16] MEDS ORDERED: ONDANSETRON HCL 4 MG/2 ML VIAL IV ONE (16:45)
[2021-06-16] MEDS ORDERED: NITROGLYCERIN 0.4 MG SL TAB SL PRN (17:00)
[2021-06-16] MEDS ORDERED: MORPHINE SULFATE INJECTION 2 MG/ML SYRG IV PRN (17:00)
[2021-06-16] MEDS: ONDANSETRON HCL 4 MG/2 ML VIAL IV PRN (23:08)
[2021-06-17] MEDS: TEMAZEPAM 15 MG CAP PO PRN ×2 (00:13→22:49)
[2021-06-17 04:20] LABS: Basophils # (auto) 0.1 10 ^3/uL (0-0.2); Basophils % (auto) 0.7 % (0.0-2.0); Eosinophils # (auto) 0.3 10 ^3/uL (0-0.8); Eosinophils % (auto) 3.4 % (0.0-7.0); Hematocrit 30.2 % (36.0-46.0); Hemoglobin 10.2 g/dL (12.2-16.2); Lymphocytes # (auto) 3.5 10 ^3/uL (0.4-5.4); Lymphocytes % (auto) 40.8 % (10.0-50.0); Mean Corpuscular Hemoglobin 30.9 pg (28.0-32.0); Mean Corpuscular Hgb Conc. 33.7 g/dL (32.0-36.0); Mean Corpuscular Volume 91.5 fL (80.0-100.0); Monocytes # (auto) 0.6 10 ^3/uL (0-1.3); Monocytes % (auto) 6.6 % (0.0-12.0); Neutrophils # (auto) 4.2 10 ^3/uL (1.6-8.6); Neutrophils % (auto) 48.5 % (37.0-80.0); Nucleated Red Blood Cells % 0.1 %; Red Cell Distribution Width 16.3 % (11.8-14.3); White Blood Cell 8.7 10^3/uL (4.4-10.8)
[2021-06-17 04:36] LABS: Anion Gap 10 (5-15); Blood Urea Nitrogen 27 mg/dL (7-18); Carbon Dioxide 24 mmol/L (21-32); Chloride 107 mmol/L (98-107); Glucose 82 mg/dL (74-106); Potassium 3.5 mmol/L (3.5-5.1); Sodium 141 mmol/L (136-145)
[2021-06-17 04:38] LABS: BUN/Creatinine Ratio 15.5; GFR African American 38 mL/min; GFR Non-African American 31 mL/min
[2021-06-17 06:12] LABS: Calcium < 5.0 mg/dL (8.5-10.1)
[2021-06-17] MEDS: ONDANSETRON HCL 4 MG/2 ML VIAL IV PRN ×3 (06:42→20:06)
[2021-06-17] MEDS ORDERED: CALCIUM CHL 100MG/ML 1,000 MG in D5W 5% 100 ML IV ONE (10:00)
[2021-06-17] MEDS ORDERED: CALCITRIOL 0.25 MCG CAP PO ONE (10:00)
[2021-06-17] MEDS: LACTATED RINGER'S 1,000 ML IV SCH ×2 (10:27→22:49)
[2021-06-17] MEDS: PANTOPRAZOLE 40 MG TAB PO SCH (10:28)
[2021-06-17] MEDS: CALCIUM CARB 500 MG CHEW TAB PO SCH ×2 (12:28→18:23)
[2021-06-17] MEDS ORDERED: CALC0.5C PO (16:15)
[2021-06-17] MEDS ORDERED: CALC500C66 PO (16:15)
[2021-06-17] MEDS ORDERED: FAMO20TA10 PO (16:15)
[2021-06-17 18:55] LABS: Anion Gap 11 (5-15); Carbon Dioxide 20 mmol/L (21-32); Chloride 108 mmol/L (98-107); GFR African American 42 mL/min; GFR Non-African American 34 mL/min; Glucose 93 mg/dL (74-106); Potassium 3.6 mmol/L (3.5-5.1); Sodium 139 mmol/L (136-145)
[2021-06-17 18:59] LABS: BUN/Creatinine Ratio 13.8; Blood Urea Nitrogen 22 mg/dL (7-18)
[2021-06-17 19:09] LABS: Calcium 5.5 mg/dL (8.5-10.1)
[2021-06-17] MEDS ORDERED: CALCIUM GLUC 1,000mg/50ml-NS 50 ML IV ONE (21:15)
[2021-06-17 23:26] VITALS: BP 112/67
[2021-06-18] MEDS ORDERED: ATO40T PO (00:20)
[2021-06-18] MEDS ORDERED: CALCIUM GLUC 1,000mg/50ml-NS 50 ML IV ONE ×3 (02:00→22:30)
[2021-06-18] MEDS: ONDANSETRON HCL 4 MG/2 ML VIAL IV PRN ×4 (02:22→22:56)
[2021-06-18 05:00] VITALS: BP 105/65
[2021-06-18 07:10] LABS: Basophils # (auto) 0.1 10 ^3/uL (0-0.2); Eosinophils # (auto) 0.4 10 ^3/uL (0-0.8); Eosinophils % (auto) 4.1 % (0.0-7.0); Hematocrit 28.8 % (36.0-46.0); Hemoglobin 9.6 g/dL (12.2-16.2); Lymphocytes # (auto) 2.8 10 ^3/uL (0.4-5.4); Lymphocytes % (auto) 31.9 % (10.0-50.0); Mean Corpuscular Hemoglobin 30.4 pg (28.0-32.0); Mean Corpuscular Hgb Conc. 33.3 g/dL (32.0-36.0); Mean Corpuscular Volume 91.4 fL (80.0-100.0); Monocytes # (auto) 0.7 10 ^3/uL (0-1.3); Monocytes % (auto) 8.2 % (0.0-12.0); Neutrophils # (auto) 4.8 10 ^3/uL (1.6-8.6); Neutrophils % (auto) 54.8 % (37.0-80.0); Nucleated Red Blood Cells % 0.1 %; Red Blood Cells 3.15 10^6/uL (4.0-5.20); Red Cell Distribution Width 16.8 % (11.8-14.3); White Blood Cell 8.8 10^3/uL (4.4-10.8)
[2021-06-18 07:30] LABS: BUN/Creatinine Ratio 12.5; Potassium 3.2 mmol/L (3.5-5.1)
[2021-06-18] MEDS ORDERED: CALCITRIOL 0.25 MCG CAP PO ONE ×2 (07:45→09:00)
[2021-06-18 08:00] VITALS: BP 103/72
[2021-06-18 08:06] LABS: Calcium 5.4 mg/dL (8.5-10.1)
[2021-06-18] MEDS ORDERED: POTASSIUM EFFERVESENT TAB 25 MEQ PO ONE (09:00)
[2021-06-18] MEDS: PANTOPRAZOLE 40 MG TAB PO SCH (09:39)
[2021-06-18] MEDS: CALCIUM CARB 500 MG CHEW TAB PO SCH ×3 (09:39→18:11)
[2021-06-18] MEDS ORDERED: CALCIUM CHL 100MG/ML 1,000 MG in D5W 5% 100 ML IV ONE (10:00)
[2021-06-18] MEDS ORDERED: MAGNESIUM SULFATE 1GM/100ML 100 ML IV ONE (10:30)
[2021-06-18] MEDS: ACETAMINOPHEN 325 MG TAB PO PRN ×3 (10:57→22:55)
[2021-06-18 12:00] VITALS: BP 110/67
[2021-06-18] MEDS ORDERED: MAGNESIUM SULFATE 1GM/100ML 100 ML IV SCH (12:00)
[2021-06-18] MEDS: MAGNESIUM SULFATE 1GM/100ML 100 ML IV SCH ×4 (12:30→23:50)
[2021-06-18] MEDS: LACTATED RINGER'S 1,000 ML IV SCH ×2 (12:40→18:55)
[2021-06-18 16:00] VITALS: BP 120/55
[2021-06-18 20:23] LABS: Alanine Aminotransferase < 6 U/L (13-56); Albumin 2.3 g/dL (3.4-5.0); Anion Gap 9 (5-15); Aspartate Aminotransferase 12 U/L (15-37); BUN/Creatinine Ratio 12.7; Blood Urea Nitrogen 18 mg/dL (7-18); Calcium 6.6 mg/dL (8.5-10.1); Carbon Dioxide 25 mmol/L (21-32); Chloride 109 mmol/L (98-107); GFR African American 48 mL/min; GFR Non-African American 40 mL/min; Glucose 99 mg/dL (74-106); Magnesium 1.4 mg/dL (1.6-2.6); Potassium 3.4 mmol/L (3.5-5.1); Sodium 143 mmol/L (136-145)
[2021-06-18 20:26] LABS: Alkaline Phosphatase 50 U/L (45-117); Bilirubin, Total 0.4 mg/dL (0.2-1.0); Total Protein 6.3 g/dL (6.4-8.2)
[2021-06-18 22:00] VITALS: BP 128/64
[2021-06-18] MEDS: NYSTATIN TOPICAL POWDER 15GM TOP SCH (22:00)
[2021-06-18] MEDS: TEMAZEPAM 15 MG CAP PO PRN (22:45)
[2021-06-19] MEDS: MAGNESIUM SULFATE 1GM/100ML 100 ML IV SCH ×5 (00:56→07:11)
[2021-06-19 05:00] VITALS: BP 127/90
[2021-06-19] MEDS: CALCIUM CARB 500 MG CHEW TAB PO SCH ×5 (05:47→23:37)
[2021-06-19 05:50] LABS: Potassium 3.7 mmol/L (3.5-5.1)
[2021-06-19 06:04] LABS: Magnesium 1.9 mg/dL (1.6-2.6)
[2021-06-19] MEDS: ONDANSETRON HCL 4 MG/2 ML VIAL IV PRN ×3 (06:18→20:50)
[2021-06-19] MEDS: ACETAMINOPHEN 325 MG TAB PO PRN (06:18)
[2021-06-19 09:00] VITALS: BP 106/77
[2021-06-19] MEDS: PANTOPRAZOLE 40 MG TAB PO SCH (09:46)
[2021-06-19] MEDS: NYSTATIN TOPICAL POWDER 15GM TOP SCH ×3 (09:48→22:00)
[2021-06-19 10:43] LABS: Basophils # (auto) 0.1 10 ^3/uL (0-0.2); Basophils % (auto) 0.8 % (0.0-2.0); Eosinophils # (auto) 0.3 10 ^3/uL (0-0.8); Eosinophils % (auto) 3.8 % (0.0-7.0); Hematocrit 35.1 % (36.0-46.0); Hemoglobin 11.5 g/dL (12.2-16.2); Lymphocytes # (auto) 2.2 10 ^3/uL (0.4-5.4); Lymphocytes % (auto) 25.9 % (10.0-50.0); Mean Corpuscular Hemoglobin 30.2 pg (28.0-32.0); Mean Corpuscular Hgb Conc. 32.8 g/dL (32.0-36.0); Mean Corpuscular Volume 91.8 fL (80.0-100.0); Monocytes # (auto) 0.7 10 ^3/uL (0-1.3); Monocytes % (auto) 7.7 % (0.0-12.0); Neutrophils # (auto) 5.3 10 ^3/uL (1.6-8.6); Neutrophils % (auto) 61.8 % (37.0-80.0); Nucleated Red Blood Cells % 0.2 %; Red Blood Cells 3.83 10^6/uL (4.0-5.20); Red Cell Distribution Width 17.2 % (11.8-14.3); White Blood Cell 8.6 10^3/uL (4.4-10.8)
[2021-06-19] MEDS: ARTIFICIAL TEARS 15ml EACHEYE PRN (10:51)
[2021-06-19 13:00] VITALS: BP 136/98
[2021-06-19] MEDS: LACTATED RINGER'S 1,000 ML IV SCH ×2 (16:32→18:02)
[2021-06-19 17:03] VITALS: BP 120/73
[2021-06-19 22:00] VITALS: BP 121/74
[2021-06-19] MEDS: TEMAZEPAM 15 MG CAP PO PRN (23:37)
[2021-06-20] MEDS: ONDANSETRON HCL 4 MG/2 ML VIAL IV PRN ×2 (03:20→09:19)
[2021-06-20] MEDS ORDERED: BUDE0.5S NEB (04:25)
[2021-06-20] MEDS ORDERED: OXY5T PO (04:25)
[2021-06-20] MEDS ORDERED: MELA3TAB27 PO (04:25)
[2021-06-20] MEDS ORDERED: PANT40TA2 PO (04:25)
[2021-06-20] MEDS ORDERED: CLOP75TA70 PO (04:25)
[2021-06-20] MEDS ORDERED: LEVA1NEB5 NEB (04:25)
[2021-06-20] MEDS ORDERED: GABA300C10 PO (04:25)
[2021-06-20] MEDS ORDERED: FURO1TAB33 PO (04:25)
[2021-06-20] MEDS ORDERED: METH5TAB2 PO (04:25)
[2021-06-20] MEDS ORDERED: GABA100C9 PO (04:25)
[2021-06-20] MEDS ORDERED: FLUT250M2 INH (04:25)
[2021-06-20] MEDS ORDERED: ATOR10TA52 PO (04:25)
[2021-06-20] MEDS ORDERED: FLUT0.05 INH (04:25)
[2021-06-20] MEDS: ARTIFICIAL TEARS 15ml EACHEYE PRN ×2 (04:30→09:21)
[2021-06-20 05:00] VITALS: BP 129/78
[2021-06-20] MEDS: CALCIUM CARB 500 MG CHEW TAB PO SCH ×2 (06:15→12:00)
[2021-06-20 09:00] VITALS: BP 132/96
[2021-06-20] MEDS: PANTOPRAZOLE 40 MG TAB PO SCH (09:19)
[2021-06-20] MEDS: ACETAMINOPHEN 325 MG TAB PO PRN (09:20)
[2021-06-20] MEDS: NYSTATIN TOPICAL POWDER 15GM TOP SCH (09:24)
[2021-06-20 09:43] LABS: Magnesium 2.1 mg/dL (1.6-2.6)
[2021-06-20 13:05] VITALS: BP 122/96
[2021-06-20 13:53] VITALS: BP 132/96
[2021-06-20] MEDS: LACTATED RINGER'S 1,000 ML IV SCH (14:47)
== END 2021-06-20 14:30 | DRG 469 ==
LOC: ER 10:05 → EDBD 10:05 → TELE 16:48 → TELE-CENTR 06-17 21:23
PROVIDERS: ADMIT Internal Medicine; ATTEND Internal Medicine
DX: N17.9 Acute kidney failure, unspecified (principal); I27.20 Pulmonary hypertension, unspecified; I50.9 Heart failure, unspecified; E83.51 Hypocalcemia; I13.0 Hypertensive heart and chronic kidney disease with heart failure and stage 1 through stage 4 chronic kidney disease, or unspecified chronic kidney disease; N39.0 Urinary tract infection, site not specified; E83.42 Hypomagnesemia; E87.6 Hypokalemia; N18.30 Chronic kidney disease, stage 3 unspecified; E86.9 Volume depletion, unspecified; K52.9 Noninfective gastroenteritis and colitis, unspecified; Z20.822 Contact with and (suspected) exposure to COVID-19; E66.01 Morbid (severe) obesity due to excess calories; K21.9 Gastro-esophageal reflux disease without esophagitis; Z80.1 Family history of malignant neoplasm of trachea, bronchus and lung; Z80.7 Family history of other malignant neoplasms of lymphoid, hematopoietic and related tissues; Z82.3 Family history of stroke; Z86.711 Personal history of pulmonary embolism; Z90.49 Acquired absence of other specified parts of digestive tract; Z68.41 Body mass index [BMI] 40.0-44.9, adult
CPT/HCPCS: 36415; 74176; 80048; 80053; 81001; 82306; 82310; 83735; 83970; 84100; 85025; 85048; 87045; 87086; 87088; 87186; 87426; 87427; 87493; 93005; 96361; 96365; 96367; 96375; 97110; 97163; 97530; G0378; J0696; J2405; J7060

== ENCOUNTER 2021-12-08 17:10 | Emergency (ER) | payer MEDICAID ==
[~2021-12-08] VITALS: Ht 160 cm; Wt 104.3 kg
[~2021-12-08 17:10] MED LIST changes: -ALBUAER3 IN; +ATOR10TA52 PO; +BUDE0.5S NEB; +CALC0.5C PO; +CALC500C66 PO; +CLOP75TA70 PO; +FAMO20TA10 PO; +FLUT0.05 INH; +FLUT250M2 INH; -FURO1TAB31 PO; +FURO1TAB33 PO; +GABA300C10 PO; +LEVA1NEB5 NEB; -LISI-716 PO; +MELA3TAB27 PO; -MET25T PO; +METH5TAB2 PO; +OXY5T PO; -PANT40T PO; +PANT40TA2 PO; -POTA-180 PO
[2021-12-08 18:18] LABS: Eosinophils # (auto) 0.1 10 ^3/uL (0-0.8); Hemoglobin 10.6 g/dL (12.2-16.2); Mean Corpuscular Volume 101.7 fL (80.0-100.0); Monocytes # (auto) 0.4 10 ^3/uL (0-1.3); White Blood Cell 10.9 10^3/uL (4.4-10.8)
[2021-12-08 18:20] LABS: Basophils # (auto) 0.1 10 ^3/uL (0-0.2); Basophils % (auto) 0.5 % (0.0-2.0); Eosinophils % (auto) 0.6 % (0.0-7.0); Hematocrit 31.7 % (36.0-46.0); Lymphocytes # (auto) 2.8 10 ^3/uL (0.4-5.4); Lymphocytes % (auto) 25.5 % (10.0-50.0); Mean Corpuscular Hemoglobin 33.9 pg (28.0-32.0); Mean Corpuscular Hgb Conc. 33.4 g/dL (32.0-36.0); Monocytes % (auto) 3.9 % (0.0-12.0); Neutrophils # (auto) 7.6 10 ^3/uL (1.6-8.6); Neutrophils % (auto) 69.5 % (37.0-80.0); Nucleated Red Blood Cells % 0.1 %; Red Blood Cells 3.12 10^6/uL (4.0-5.20); Red Cell Distribution Width 24.2 % (11.8-14.3)
[2021-12-08] MEDS ORDERED: SODIUM CHLORIDE 0.9% 1,000 ML IV ONE (18:30)
[2021-12-08 18:37] LABS: INR 1.06 (0.9-1.15); Partial Thromboplastin Time 24.7 sec (23.6-33.0)
[2021-12-08 18:38] LABS: Albumin 2.9 g/dL (3.4-5.0); Calcium 7.4 mg/dL (8.5-10.1); Potassium 3.6 mmol/L (3.5-5.1)
[2021-12-08 19:01] LABS: BUN/Creatinine Ratio 25.4; Bilirubin, Total 0.6 mg/dL (0.2-1.0); Total Protein 7.4 g/dL (6.4-8.2)
[2021-12-08] MEDS ORDERED: ceFAZolin 1GM/50ML 100 ML IV ONE (20:30)
[2021-12-08 22:30] LABS: Urine Bacteria MANY /hpf (None Seen); Urine Blood Negative /uL (Negative); Urine Hyaline Cast FEW /lpf (0 - 2); Urine WBC 48 /hpf (0 - 5); Urine WBC Clumps PRESENT /hpf (None Seen)
[2021-12-08] MEDS ORDERED: CEFTRIAXONE SODIUM 2 GM in D5W 5% 50 ML IV ONE (23:00)
[2021-12-08] MEDS ORDERED: cefTRIAXone 1GM/50ML D5W 50 ML IV ONE (23:07)
[2021-12-08] MEDS ORDERED: cefTRIAXone SOD 1,000 MG VL ONE (23:08)
[2021-12-09 03:00] VITALS: BP 119/82
== END 2021-12-09 07:26 | disposition home or self-care (01) ==
LOC: EDBD 17:10 → ER 17:10
DX: N39.0 Urinary tract infection, site not specified (principal); I11.0 Hypertensive heart disease with heart failure; I50.9 Heart failure, unspecified; I25.10 Atherosclerotic heart disease of native coronary artery without angina pectoris; Z90.49 Acquired absence of other specified parts of digestive tract; Z79.01 Long term (current) use of anticoagulants; Z79.899 Other long term (current) drug therapy; Z20.822 Contact with and (suspected) exposure to COVID-19
CPT/HCPCS: 36415; 71045; 73700; 80053; 81001; 83605; 83880; 84484; 85025; 85610; 85652; 85730; 86141; 87040; 87426; 93005; 96365; 96367; 99285; J0690; J0696; J7060

== ENCOUNTER 2021-12-14 17:35 | Inpatient (IN) | payer MEDICARE, MEDICAID ==
[~2021-12-14] VITALS: Ht 160 cm; Wt 137.5 kg
[2021-12-14] MEDS ORDERED: POTASSIUM EFFERVESENT TAB 25 MEQ GT ONE (20:00)
[2021-12-14] MEDS ORDERED: ASPirin 325 MG TAB PO ONE (20:00)
[2021-12-14 21:07] LABS: Eosinophils # (auto) 0.1 10 ^3/uL (0-0.8); Hemoglobin 10.9 g/dL (12.2-16.2); Monocytes # (auto) 0.9 10 ^3/uL (0-1.3); Monocytes % (auto) 6.1 % (0.0-12.0)
[2021-12-14 21:09] LABS: Basophils # (auto) 0.2 10 ^3/uL (0-0.2); Eosinophils % (auto) 0.4 % (0.0-7.0); Hematocrit 32.7 % (36.0-46.0); Lymphocytes # (auto) 2.8 10 ^3/uL (0.4-5.4); Lymphocytes % (auto) 19.3 % (10.0-50.0); Mean Corpuscular Hemoglobin 34.1 pg (28.0-32.0); Mean Corpuscular Hgb Conc. 33.2 g/dL (32.0-36.0); Mean Corpuscular Volume 102.7 fL (80.0-100.0); Neutrophils # (auto) 10.6 10 ^3/uL (1.6-8.6); Neutrophils % (auto) 73.2 % (37.0-80.0); Nucleated Red Blood Cells % 0.5 %; Red Blood Cells 3.19 10^6/uL (4.0-5.20); White Blood Cell 14.6 10^3/uL (4.4-10.8)
[2021-12-14 21:23] LABS: Albumin 2.9 g/dL (3.4-5.0); Calcium 6.6 mg/dL (8.5-10.1); Potassium 3.1 mmol/L (3.5-5.1)
[2021-12-14 21:30] LABS: BUN/Creatinine Ratio 13.9; Bilirubin, Total 0.8 mg/dL (0.2-1.0); Total Protein 7.2 g/dL (6.4-8.2)
[2021-12-14 21:34] LABS: Magnesium 0.9 mg/dL (1.6-2.6)
[2021-12-15 02:13] LABS: Urine Bacteria NONE SEEN /hpf (None Seen); Urine Blood TRACE /uL (Negative); Urine Mucus FEW (None Seen); Urine Specific Gravity 1.016 (1.001-1.035); Urine WBC 322 /hpf (0 - 5); Urine WBC Clumps PRESENT /hpf (None Seen)
[2021-12-15 02:24] LABS: INR 1.18 (0.9-1.15); Partial Thromboplastin Time 26.8 sec (23.6-33.0)
[2021-12-15] MEDS ORDERED: hydrALAZINE HCL 10 MG TAB PO PRN (04:45)
[2021-12-15] MEDS ORDERED: SODIUM CHLORIDE 0.9% 1,000 ML IV SCH (04:45)
[2021-12-15] MEDS ORDERED: ACETAMINOPHEN 325 MG TAB PO PRN (04:45)
[2021-12-15] MEDS ORDERED: levoFLOXacin 500MG 100 ML IV ONE (04:45)
[2021-12-15] MEDS ORDERED: MORPHINE SULFATE INJECTION 2 MG/ML SYRG IV PRN (04:45)
[2021-12-15] MEDS: MAGNESIUM SULFATE 1GM/100ML 100 ML IV SCH ×2 (05:22→06:45)
[2021-12-15 09:00] VITALS: BP 91/58
[2021-12-15] MEDS: HYDROcodone-ACET 5/325MG TAB PO PRN ×2 (10:59→21:35)
[2021-12-15] MEDS: FAMOTIDINE 20 MG TAB PO SCH (10:59)
[2021-12-15] MEDS: HEPARIN SODIUM (PORCINE) 5000 UNITS/ML 1ML VIAL SC SCH ×2 (11:01→22:28)
[2021-12-15] MEDS: CLINDAMYCIN 600MG IV 50 ML IV SCH ×2 (14:00→22:00)
[2021-12-15 14:53] LABS: Protein, Urine 63.6 mg/dL (0.0-11.9)
[2021-12-15 17:00] VITALS: BP 93/56
[2021-12-15 22:00] VITALS: BP 89/47
[2021-12-16 00:09] LABS: Basophils # (auto) 0.1 10 ^3/uL (0-0.2); Basophils % (auto) 0.5 % (0.0-2.0); Eosinophils # (auto) 0.1 10 ^3/uL (0-0.8); Hematocrit 26.7 % (36.0-46.0); Hemoglobin 8.9 g/dL (12.2-16.2); Lymphocytes # (auto) 2.3 10 ^3/uL (0.4-5.4); Lymphocytes % (auto) 19.5 % (10.0-50.0); Mean Corpuscular Hemoglobin 34.6 pg (28.0-32.0); Mean Corpuscular Hgb Conc. 33.3 g/dL (32.0-36.0); Mean Corpuscular Volume 103.7 fL (80.0-100.0); Monocytes % (auto) 8.7 % (0.0-12.0); Neutrophils # (auto) 8.5 10 ^3/uL (1.6-8.6); Neutrophils % (auto) 70.3 % (37.0-80.0); Nucleated Red Blood Cells % 0.4 %; Red Blood Cells 2.58 10^6/uL (4.0-5.20)
[2021-12-16 00:11] LABS: Red Cell Distribution Width 25.2 % (11.8-14.3)
[2021-12-16 00:24] LABS: Albumin 2.3 g/dL (3.4-5.0); Potassium 3.1 mmol/L (3.5-5.1)
[2021-12-16 01:08] LABS: BUN/Creatinine Ratio 13.2; Bilirubin, Total 0.5 mg/dL (0.2-1.0); Total Protein 6.3 g/dL (6.4-8.2)
[2021-12-16 05:00] VITALS: BP 106/55
[2021-12-16] MEDS: HYDROcodone-ACET 5/325MG TAB PO PRN ×2 (05:16→23:07)
[2021-12-16] MEDS: CLINDAMYCIN 600MG IV 50 ML IV SCH ×3 (06:39→22:00)
[2021-12-16 08:57] VITALS: BP 96/53
[2021-12-16 09:42] LABS: Albumin 2.3 g/dL (3.4-5.0); Calcium 6.1 mg/dL (8.5-10.1); Magnesium 1.2 mg/dL (1.6-2.6)
[2021-12-16 09:48] LABS: BUN/Creatinine Ratio 14.5; Bilirubin, Total 0.5 mg/dL (0.2-1.0); Total Protein 6.4 g/dL (6.4-8.2)
[2021-12-16] MEDS: FAMOTIDINE 20 MG TAB PO SCH ×2 (10:00→10:08)
[2021-12-16] MEDS: MAGNESIUM SULFATE 1GM/100ML 100 ML IV SCH ×4 (10:08→16:00)
[2021-12-16] MEDS: HEPARIN SODIUM (PORCINE) 5000 UNITS/ML 1ML VIAL SC SCH (10:11)
[2021-12-16 10:18] LABS: Potassium 2.8 mmol/L (3.5-5.1)
[2021-12-16] MEDS: POTASSIUM CHL 10MEQ/50ML 50 ML IV SCH ×2 (11:30→12:30)
[2021-12-16] MEDS: DOPamine 1600MCG/ML D5W 250 ML IV SCH (11:30)
[2021-12-16] MEDS: SODIUM BICARBONATE 50ML VIAL 50 ML in SOD CHL 0.45% 1,000 ML IV SCH (11:30)
[2021-12-16 13:00] VITALS: BP 132/79
[2021-12-16] MEDS ORDERED: CALCIUM GLUC 1,000mg/50ml-NS 50 ML IV ONE (15:00)
[2021-12-16] MEDS ORDERED: POTASSIUM CHL 20 Meq TABLET PO ONE (15:00)
[2021-12-16] MEDS ORDERED: cefTRIAXone 1GM/50ML D5W 50 ML IV ONE (15:15)
[2021-12-16 15:44] LABS: Hematocrit 28.5 % (36.0-46.0); Hemoglobin 9.6 g/dL (12.2-16.2); Mean Corpuscular Hemoglobin 34.6 pg (28.0-32.0); Mean Corpuscular Hgb Conc. 33.7 g/dL (32.0-36.0); Mean Corpuscular Volume 102.5 fL (80.0-100.0); Red Blood Cells 2.78 10^6/uL (4.0-5.20); White Blood Cell 11.1 10^3/uL (4.4-10.8)
[2021-12-16 15:45] LABS: Red Cell Distribution Width 25.1 % (11.8-14.3)
[2021-12-16] MEDS: HEPARIN DRIP/D5W 100UNITS/ML 250 ML IV SCH (15:45)
[2021-12-16] MEDS ORDERED: HEPARIN SODIUM (PORCINE) 5000 UNITS/ML 1ML VIAL IV ONE (15:45)
[2021-12-16 15:48] LABS: Basophils % (manual) 0 (0.0-2.0); Blast Cells 0; Metamyelocytes % 0; Myelocytes % 0; Promyelocytes % 0; Reactive Lymphocytes 0
[2021-12-16 16:59] VITALS: BP 95/55
[2021-12-16 17:10] LABS: Band Neutrophils % (manual) 2; Eosinophils % (manual) 3 (0-7); Lymphocytes % (manual) 20 (10.0-50.0); Monocytes % (manual) 5 (0-12)
[2021-12-16 17:34] LABS: INR 1.06 (0.9-1.15); Partial Thromboplastin Time 29.6 sec (23.6-33.0)
[2021-12-16] MEDS: LEVALBUTEROL HCL 1.25 MG/3 ML NEB NEB SCH (18:00)
[2021-12-16 20:00] VITALS: BP 90/58
[2021-12-16] MEDS: ATORVASTATIN 20 MG TAB PO SCH (22:00)
[2021-12-16] MEDS: GABAPENTIN 300 MG CAP PO SCH (22:00)
[2021-12-16] MEDS: NYSTATIN TOPICAL POWDER 15GM TOP SCH (22:00)
[2021-12-17] MEDS: SODIUM BICARBONATE 50ML VIAL 50 ML in SOD CHL 0.45% 1,000 ML IV SCH ×3 (01:23→12:42)
[2021-12-17] MEDS: HEPARIN DRIP/D5W 100UNITS/ML 250 ML IV SCH ×2 (01:24→16:45)
[2021-12-17] MEDS: DOPamine 1600MCG/ML D5W 250 ML IV SCH (01:26)
[2021-12-17] MEDS: LEVALBUTEROL HCL 1.25 MG/3 ML NEB NEB SCH ×4 (05:54→18:10)
[2021-12-17] MEDS: GABAPENTIN 300 MG CAP PO SCH ×2 (06:00→22:00)
[2021-12-17] MEDS: CLINDAMYCIN 600MG IV 50 ML IV SCH ×3 (06:00→22:00)
[2021-12-17 06:39] LABS: Basophils # (auto) 0 10 ^3/uL (0-0.2); Basophils % (auto) 0.3 % (0.0-2.0); Eosinophils # (auto) 0.2 10 ^3/uL (0-0.8); Eosinophils % (auto) 1.8 % (0.0-7.0); Hematocrit 29.3 % (36.0-46.0); Hemoglobin 9.6 g/dL (12.2-16.2); Lymphocytes # (auto) 3.2 10 ^3/uL (0.4-5.4); Lymphocytes % (auto) 24.3 % (10.0-50.0); Mean Corpuscular Hemoglobin 33.5 pg (28.0-32.0); Mean Corpuscular Hgb Conc. 32.8 g/dL (32.0-36.0); Monocytes # (auto) 1.1 10 ^3/uL (0-1.3); Monocytes % (auto) 8.2 % (0.0-12.0); Neutrophils # (auto) 8.6 10 ^3/uL (1.6-8.6); Neutrophils % (auto) 65.4 % (37.0-80.0); Red Blood Cells 2.88 10^6/uL (4.0-5.20); White Blood Cell 13.1 10^3/uL (4.4-10.8)
[2021-12-17 06:42] LABS: Red Cell Distribution Width 25.1 % (11.8-14.3)
[2021-12-17 06:50] LABS: Calcium 6.4 mg/dL (8.5-10.1)
[2021-12-17 06:53] LABS: BUN/Creatinine Ratio 16.1
[2021-12-17 07:01] LABS: Potassium 2.9 mmol/L (3.5-5.1)
[2021-12-17 07:04] LABS: INR 1.1 (0.9-1.15)
[2021-12-17 07:23] LABS: Partial Thromboplastin Time 107.5 sec (23.6-33.0)
[2021-12-17 08:00] VITALS: BP 108/72
[2021-12-17 09:00] VITALS: BP 101/61
[2021-12-17] MEDS: cefTRIAXone 1GM/50ML D5W 50 ML IV SCH (09:00)
[2021-12-17] MEDS: FAMOTIDINE 20 MG TAB PO SCH (09:53)
[2021-12-17] MEDS ORDERED: CLOPIDOGREL BISULFATE 75 MG TAB PO SCH (10:00)
[2021-12-17] MEDS ORDERED: levoFLOXacin 250MG 50 ML IV SCH (10:00)
[2021-12-17] MEDS: NYSTATIN TOPICAL POWDER 15GM TOP SCH ×2 (10:00→22:00)
[2021-12-17] MEDS ORDERED: POTASSIUM EFFERVESENT TAB 25 MEQ PO ONE ×2 (10:30→14:30)
[2021-12-17] MEDS: ERGOCALCIFEROL 50,000 UNIT(1.25MG) CAP PO SCH ×2 (10:30→16:16)
[2021-12-17] MEDS: POTASSIUM CHL 10MEQ/50ML 50 ML IV SCH ×3 (10:30→13:30)
[2021-12-17 12:17] LABS: INR 1.1 (0.9-1.15); Partial Thromboplastin Time 59.8 sec (23.6-33.0)
[2021-12-17] MEDS: MAGNESIUM SULFATE 1GM/100ML 100 ML IV SCH ×2 (12:30→13:30)
[2021-12-17 13:00] VITALS: BP 98/60
[2021-12-17 17:00] VITALS: BP 117/66
[2021-12-17] MEDS: HYDROcodone-ACET 5/325MG TAB PO PRN (19:21)
[2021-12-17 19:41] LABS: INR 1.06 (0.9-1.15); Partial Thromboplastin Time 48.6 sec (23.6-33.0)
[2021-12-17 20:00] VITALS: BP 122/62
[2021-12-17 22:00] VITALS: BP 122/62
[2021-12-17] MEDS: ATORVASTATIN 20 MG TAB PO SCH (22:00)
[2021-12-18] MEDS: LEVALBUTEROL HCL 1.25 MG/3 ML NEB NEB SCH ×4 (00:34→18:05)
[2021-12-18 01:53] LABS: INR 1.01 (0.9-1.15); Partial Thromboplastin Time 29.5 sec (23.6-33.0)
[2021-12-18] MEDS: HYDROcodone-ACET 5/325MG TAB PO PRN ×2 (04:06→14:46)
[2021-12-18 05:00] VITALS: BP 100/58
[2021-12-18] MEDS: HEPARIN DRIP/D5W 100UNITS/ML 250 ML IV SCH ×2 (05:15→18:00)
[2021-12-18 05:27] LABS: Calcium 6.7 mg/dL (8.5-10.1); Magnesium 1.3 mg/dL (1.6-2.6)
[2021-12-18 05:34] LABS: Hematocrit 25.7 % (36.0-46.0); Hemoglobin 8.8 g/dL (12.2-16.2); Mean Corpuscular Hemoglobin 35.3 pg (28.0-32.0); Mean Corpuscular Hgb Conc. 34.5 g/dL (32.0-36.0); Mean Corpuscular Volume 102.5 fL (80.0-100.0); White Blood Cell 9.6 10^3/uL (4.4-10.8)
[2021-12-18 05:43] LABS: Red Cell Distribution Width 24.9 % (11.8-14.3)
[2021-12-18 05:44] LABS: Band Neutrophils % (manual) 0; Basophils % (manual) 0 (0.0-2.0); Blast Cells 0; Eosinophils % (manual) 0 (0-7); Metamyelocytes % 0; Promyelocytes % 0; Reactive Lymphocytes 0
[2021-12-18] MEDS: CLINDAMYCIN 600MG IV 50 ML IV SCH ×3 (06:00→23:57)
[2021-12-18 07:13] LABS: Lymphocytes % (manual) 22 (10.0-50.0); Monocytes % (manual) 9 (0-12); Myelocytes % 1
[2021-12-18 09:00] VITALS: BP 95/56
[2021-12-18] MEDS: cefTRIAXone 1GM/50ML D5W 50 ML IV SCH (09:00)
[2021-12-18] MEDS: GABAPENTIN 300 MG CAP PO SCH ×2 (09:26→23:54)
[2021-12-18] MEDS: FAMOTIDINE 20 MG TAB PO SCH (09:26)
[2021-12-18] MEDS: NYSTATIN TOPICAL POWDER 15GM TOP SCH ×2 (09:27→23:55)
[2021-12-18] MEDS: MAGNESIUM SULFATE 1GM/100ML 100 ML IV SCH ×4 (11:00→13:00)
[2021-12-18 13:00] VITALS: BP 86/55
[2021-12-18] MEDS: POTASSIUM CHL 10MEQ/50ML 50 ML IV SCH ×4 (13:00→16:00)
[2021-12-18] MEDS: DOPamine 1600MCG/ML D5W 250 ML IV SCH (13:30)
[2021-12-18] MEDS: SODIUM BICARBONATE 50ML VIAL 50 ML in SOD CHL 0.45% 1,000 ML IV SCH ×2 (13:54→23:56)
[2021-12-18 16:31] VITALS: BP 142/82
[2021-12-18 17:16] LABS: INR 1.04 (0.9-1.15); Partial Thromboplastin Time 37.6 sec (23.6-33.0)
[2021-12-18 20:00] VITALS: BP 127/64
[2021-12-18 20:00] LABS: INR 1.03 (0.9-1.15); Partial Thromboplastin Time 58.8 sec (23.6-33.0)
[2021-12-18] MEDS: ATORVASTATIN 20 MG TAB PO SCH (22:00)
[2021-12-19] MEDS: LEVALBUTEROL HCL 1.25 MG/3 ML NEB NEB SCH ×5 (00:09→18:04)
[2021-12-19] MEDS: LINEZOLID 600MG/300ML 300 ML IV SCH ×2 (00:26→10:43)
[2021-12-19 00:58] LABS: INR 1.03 (0.9-1.15); Partial Thromboplastin Time 43.4 sec (23.6-33.0)
[2021-12-19] MEDS: HYDROcodone-ACET 5/325MG TAB PO PRN ×3 (02:01→22:02)
[2021-12-19 04:00] VITALS: BP 131/68
[2021-12-19] MEDS: HEPARIN DRIP/D5W 100UNITS/ML 250 ML IV SCH ×3 (04:37→17:40)
[2021-12-19] MEDS: SODIUM BICARBONATE 50ML VIAL 50 ML in SOD CHL 0.45% 1,000 ML IV SCH ×3 (06:42→23:30)
[2021-12-19 09:00] VITALS: BP 113/70
[2021-12-19 10:42] LABS: Basophils # (auto) 0.1 10 ^3/uL (0-0.2); Basophils % (auto) 0.7 % (0.0-2.0); Eosinophils # (auto) 0.3 10 ^3/uL (0-0.8); Eosinophils % (auto) 3.2 % (0.0-7.0); Hematocrit 26.1 % (36.0-46.0); Hemoglobin 8.6 g/dL (12.2-16.2); Lymphocytes # (auto) 2.1 10 ^3/uL (0.4-5.4); Lymphocytes % (auto) 20.3 % (10.0-50.0); Monocytes # (auto) 0.9 10 ^3/uL (0-1.3); Monocytes % (auto) 8.6 % (0.0-12.0); Neutrophils # (auto) 6.8 10 ^3/uL (1.6-8.6); Neutrophils % (auto) 67.2 % (37.0-80.0); Nucleated Red Blood Cells % 0.1 %; Red Blood Cells 2.53 10^6/uL (4.0-5.20); White Blood Cell 10.2 10^3/uL (4.4-10.8)
[2021-12-19] MEDS: cefTRIAXone 1GM/50ML D5W 50 ML IV SCH (10:43)
[2021-12-19] MEDS: GABAPENTIN 300 MG CAP PO SCH ×2 (10:44→22:00)
[2021-12-19] MEDS: FAMOTIDINE 20 MG TAB PO SCH (10:44)
[2021-12-19 10:48] LABS: Mean Corpuscular Volume 103.2 fL (80.0-100.0); Red Cell Distribution Width 23.7 % (11.8-14.3)
[2021-12-19] MEDS: NYSTATIN TOPICAL POWDER 15GM TOP SCH ×2 (10:52→22:01)
[2021-12-19 11:10] LABS: Potassium 3.1 mmol/L (3.5-5.1)
[2021-12-19 11:41] LABS: Calcium 7.5 mg/dL (8.5-10.1)
[2021-12-19 12:56] LABS: INR 1.05 (0.9-1.15); Partial Thromboplastin Time 43.6 sec (23.6-33.0)
[2021-12-19 13:00] VITALS: BP 110/67
[2021-12-19] MEDS: DOPamine 1600MCG/ML D5W 250 ML IV SCH (13:19)
[2021-12-19] MEDS: POTASSIUM CHL 10MEQ/50ML 50 ML IV SCH ×7 (13:19→18:50)
[2021-12-19] MEDS: ONDANSETRON HCL 4 MG/2 ML VIAL IV PRN ×2 (14:13→22:01)
[2021-12-19] MEDS ORDERED: DAPTOmycin 800 MG in SODIUM CHL 0.9% 50 ML IV SCH ×2 (14:30→18:00)
[2021-12-19 17:00] VITALS: BP 156/83
[2021-12-19] MEDS: ATORVASTATIN 20 MG TAB PO SCH (21:59)
[2021-12-19] MEDS: CEFTRIAXONE SODIUM 2 GM in D5W 5% 50 ML IV SCH (21:59)
[2021-12-19 22:00] VITALS: BP 125/68
[2021-12-19 22:40] LABS: INR 1.07 (0.9-1.15); Partial Thromboplastin Time 38.8 sec (23.6-33.0)
[2021-12-20] MEDS: LEVALBUTEROL HCL 1.25 MG/3 ML NEB NEB SCH ×3 (00:08→18:15)
[2021-12-20] MEDS: HEPARIN DRIP/D5W 100UNITS/ML 250 ML IV SCH ×2 (00:40→17:03)
[2021-12-20] MEDS: DOPamine 1600MCG/ML D5W 250 ML IV SCH (00:55)
[2021-12-20 05:00] VITALS: BP 100/67
[2021-12-20] MEDS: SODIUM BICARBONATE 50ML VIAL 50 ML in SOD CHL 0.45% 1,000 ML IV SCH ×2 (06:47→18:16)
[2021-12-20] MEDS: HYDROcodone-ACET 5/325MG TAB PO PRN ×2 (07:04→18:17)
[2021-12-20 09:00] VITALS: BP 126/85
[2021-12-20] MEDS: PANTOPRAZOLE 40 MG TAB PO SCH (09:17)
[2021-12-20] MEDS: GABAPENTIN 300 MG CAP PO SCH ×3 (09:17→21:28)
[2021-12-20] MEDS: NYSTATIN TOPICAL POWDER 15GM TOP SCH ×2 (09:17→21:28)
[2021-12-20] MEDS: CEFTRIAXONE SODIUM 2 GM in D5W 5% 50 ML IV SCH ×2 (09:17→21:27)
[2021-12-20 09:43] VITALS: BP 126/85
[2021-12-20] MEDS: ONDANSETRON HCL 4 MG/2 ML VIAL IV PRN (11:05)
[2021-12-20 11:28] LABS: Basophils # (auto) 0.1 10 ^3/uL (0-0.2); Eosinophils # (auto) 0.3 10 ^3/uL (0-0.8); Hemoglobin 8.6 g/dL (12.2-16.2); Lymphocytes # (auto) 2.1 10 ^3/uL (0.4-5.4); Monocytes # (auto) 0.9 10 ^3/uL (0-1.3); Neutrophils # (auto) 9.4 10 ^3/uL (1.6-8.6)
[2021-12-20 11:30] LABS: Basophils % (auto) 0.7 % (0.0-2.0); Hematocrit 25.8 % (36.0-46.0); Lymphocytes % (auto) 16.7 % (10.0-50.0); Mean Corpuscular Hemoglobin 34.4 pg (28.0-32.0); Mean Corpuscular Hgb Conc. 33.4 g/dL (32.0-36.0); Mean Corpuscular Volume 102.9 fL (80.0-100.0); Monocytes % (auto) 6.8 % (0.0-12.0); Neutrophils % (auto) 73.8 % (37.0-80.0); Red Blood Cells 2.51 10^6/uL (4.0-5.20); Red Cell Distribution Width 23.4 % (11.8-14.3); White Blood Cell 12.7 10^3/uL (4.4-10.8)
[2021-12-20 11:33] LABS: BUN/Creatinine Ratio 25.5; Potassium 3.5 mmol/L (3.5-5.1)
[2021-12-20 12:36] LABS: INR 1.07 (0.9-1.15); Partial Thromboplastin Time 43.2 sec (23.6-33.0)
[2021-12-20 13:00] VITALS: BP 108/70
[2021-12-20 16:44] VITALS: BP 107/61
[2021-12-20] MEDS: DAPTOmycin 800 MG in SODIUM CHL 0.9% 50 ML IV SCH (17:04)
[2021-12-20] MEDS: ATORVASTATIN 20 MG TAB PO SCH (21:27)
[2021-12-20 22:00] VITALS: BP 109/74
[2021-12-20 23:20] LABS: INR 1.07 (0.9-1.15); Partial Thromboplastin Time 54.9 sec (23.6-33.0)
[2021-12-21] MEDS: SODIUM BICARBONATE 50ML VIAL 50 ML in SOD CHL 0.45% 1,000 ML IV SCH ×2 (03:18→09:04)
[2021-12-21] MEDS: HEPARIN DRIP/D5W 100UNITS/ML 250 ML IV SCH ×4 (04:28→20:30)
[2021-12-21 05:00] VITALS: BP 108/60
[2021-12-21] MEDS: GABAPENTIN 300 MG CAP PO SCH ×3 (05:41→21:39)
[2021-12-21] MEDS: LEVALBUTEROL HCL 1.25 MG/3 ML NEB NEB SCH ×4 (06:24→19:16)
[2021-12-21 09:00] VITALS: BP 100/52
[2021-12-21] MEDS: CEFTRIAXONE SODIUM 2 GM in D5W 5% 50 ML IV SCH ×2 (09:04→21:00)
[2021-12-21] MEDS: NYSTATIN TOPICAL POWDER 15GM TOP SCH ×2 (09:15→21:40)
[2021-12-21] MEDS: PANTOPRAZOLE 40 MG TAB PO SCH (09:15)
[2021-12-21] MEDS: ONDANSETRON HCL 4 MG/2 ML VIAL IV PRN (09:15)
[2021-12-21] MEDS: DOPamine 1600MCG/ML D5W 250 ML IV SCH (11:24)
[2021-12-21 11:31] LABS: Basophils # (auto) 0.1 10 ^3/uL (0-0.2); Basophils % (auto) 0.5 % (0.0-2.0); Eosinophils # (auto) 0.3 10 ^3/uL (0-0.8); Eosinophils % (auto) 2.9 % (0.0-7.0); Hematocrit 27.3 % (36.0-46.0); Hemoglobin 8.9 g/dL (12.2-16.2); Lymphocytes # (auto) 1.6 10 ^3/uL (0.4-5.4); Mean Corpuscular Hemoglobin 34.1 pg (28.0-32.0); Mean Corpuscular Hgb Conc. 32.8 g/dL (32.0-36.0); Monocytes # (auto) 0.9 10 ^3/uL (0-1.3); Monocytes % (auto) 8.4 % (0.0-12.0); Neutrophils # (auto) 8.4 10 ^3/uL (1.6-8.6); Neutrophils % (auto) 74.2 % (37.0-80.0); Nucleated Red Blood Cells % 0.1 %; Red Blood Cells 2.62 10^6/uL (4.0-5.20); White Blood Cell 11.3 10^3/uL (4.4-10.8)
[2021-12-21 11:46] LABS: Potassium 5.2 mmol/L (3.5-5.1)
[2021-12-21 11:48] LABS: BUN/Creatinine Ratio 24.9
[2021-12-21] MEDS: HYDROcodone-ACET 5/325MG TAB PO PRN (12:04)
[2021-12-21 12:07] LABS: INR 1.14 (0.9-1.15)
[2021-12-21 12:14] LABS: Partial Thromboplastin Time 73.9 sec (23.6-33.0)
[2021-12-21 13:00] VITALS: BP 96/56
[2021-12-21] MEDS: MAGNESIUM SULFATE 1GM/100ML 100 ML IV SCH ×3 (14:29→18:06)
[2021-12-21 17:00] VITALS: BP 92/60
[2021-12-21] MEDS: DAPTOmycin 800 MG in SODIUM CHL 0.9% 50 ML IV SCH (18:49)
[2021-12-21 18:59] LABS: INR 1.05 (0.9-1.15); Partial Thromboplastin Time 43.9 sec (23.6-33.0)
[2021-12-21 19:34] LABS: Calcium 8.1 mg/dL (8.5-10.1); Potassium 3.6 mmol/L (3.5-5.1)
[2021-12-21] MEDS: ATORVASTATIN 20 MG TAB PO SCH (21:39)
[2021-12-21 22:00] VITALS: BP 84/56
[2021-12-22 05:00] VITALS: BP 91/63
[2021-12-22 08:00] VITALS: BP 84/45
[2021-12-22 08:23] LABS: Basophils # (auto) 0.1 10 ^3/uL (0-0.2); Basophils % (auto) 0.6 % (0.0-2.0); Eosinophils # (auto) 0.3 10 ^3/uL (0-0.8); Eosinophils % (auto) 2.3 % (0.0-7.0); Hematocrit 23.8 % (36.0-46.0); Hemoglobin 7.7 g/dL (12.2-16.2); Lymphocytes # (auto) 1.9 10 ^3/uL (0.4-5.4); Lymphocytes % (auto) 17.1 % (10.0-50.0); Mean Corpuscular Hemoglobin 33.7 pg (28.0-32.0); Mean Corpuscular Hgb Conc. 32.5 g/dL (32.0-36.0); Monocytes # (auto) 0.7 10 ^3/uL (0-1.3); Monocytes % (auto) 6.5 % (0.0-12.0); Neutrophils # (auto) 8.1 10 ^3/uL (1.6-8.6); Neutrophils % (auto) 73.5 % (37.0-80.0); Red Blood Cells 2.29 10^6/uL (4.0-5.20)
[2021-12-22 08:24] LABS: Mean Corpuscular Volume 103.6 fL (80.0-100.0); Red Cell Distribution Width 23.2 % (11.8-14.3)
[2021-12-22] MEDS: LEVALBUTEROL HCL 1.25 MG/3 ML NEB NEB SCH ×4 (08:38→19:45)
[2021-12-22 08:39] LABS: BUN/Creatinine Ratio 23.4; Calcium 8.7 mg/dL (8.5-10.1); Potassium 3.7 mmol/L (3.5-5.1)
[2021-12-22] MEDS: HEPARIN DRIP/D5W 100UNITS/ML 250 ML IV SCH ×2 (08:52→18:49)
[2021-12-22 09:30] LABS: INR 1.08 (0.9-1.15)
[2021-12-22] MEDS: PANTOPRAZOLE 40 MG TAB PO SCH (09:52)
[2021-12-22] MEDS: CEFTRIAXONE SODIUM 2 GM in D5W 5% 50 ML IV SCH ×2 (09:53→21:12)
[2021-12-22] MEDS: NYSTATIN TOPICAL POWDER 15GM TOP SCH ×2 (09:54→21:13)
[2021-12-22 10:07] LABS: Partial Thromboplastin Time > 139.0 sec (23.6-33.0)
[2021-12-22] MEDS: HYDROcodone-ACET 5/325MG TAB PO PRN (11:12)
[2021-12-22 12:00] VITALS: BP 81/49
[2021-12-22] MEDS: LORazepam 0.5 MG TAB PO PRN ×2 (12:05→21:15)
[2021-12-22] MEDS: GABAPENTIN 300 MG CAP PO SCH ×3 (14:34→21:12)
[2021-12-22 16:00] VITALS: BP 86/56
[2021-12-22] MEDS: DAPTOmycin 800 MG in SODIUM CHL 0.9% 50 ML IV SCH (18:15)
[2021-12-22 18:18] LABS: INR 1.08 (0.9-1.15)
[2021-12-22 18:46] LABS: Partial Thromboplastin Time 80.2 sec (23.6-33.0)
[2021-12-22] MEDS: ATORVASTATIN 20 MG TAB PO SCH (21:12)
[2021-12-22 22:00] VITALS: BP 91/53
[2021-12-23] MEDS: LEVALBUTEROL HCL 1.25 MG/3 ML NEB NEB SCH ×2 (00:12→06:12)
[2021-12-23] MEDS: HYDROcodone-ACET 5/325MG TAB PO PRN (01:12)
[2021-12-23 01:52] LABS: Partial Thromboplastin Time > 139.0 sec (23.6-33.0)
[2021-12-23] MEDS: HEPARIN DRIP/D5W 100UNITS/ML 250 ML IV SCH (04:07)
[2021-12-23 05:00] VITALS: BP 94/57
[2021-12-23] MEDS: GABAPENTIN 300 MG CAP PO SCH ×3 (05:41→21:09)
[2021-12-23 08:00] VITALS: BP 96/56
[2021-12-23 08:49] LABS: INR 1.08 (0.9-1.15)
[2021-12-23 08:52] LABS: Partial Thromboplastin Time 107.4 sec (23.6-33.0)
[2021-12-23] MEDS: CEFTRIAXONE SODIUM 2 GM in D5W 5% 50 ML IV SCH ×2 (10:33→20:00)
[2021-12-23] MEDS: PANTOPRAZOLE 40 MG TAB PO SCH (10:34)
[2021-12-23] MEDS: NYSTATIN TOPICAL POWDER 15GM TOP SCH ×2 (10:34→21:09)
[2021-12-23] MEDS: LORazepam 0.5 MG TAB PO PRN ×2 (10:46→21:15)
[2021-12-23 12:00] VITALS: BP 106/67
[2021-12-23] MEDS ORDERED: LOPERAMIDE HCL 2 MG CAP PO ONE (13:15)
[2021-12-23 13:23] LABS: Basophils # (auto) 0.1 10 ^3/uL (0-0.2); Eosinophils # (auto) 0.3 10 ^3/uL (0-0.8); Hemoglobin 9.2 g/dL (12.2-16.2); Lymphocytes # (auto) 1.9 10 ^3/uL (0.4-5.4); Lymphocytes % (auto) 16.6 % (10.0-50.0); Mean Corpuscular Hemoglobin 33.5 pg (28.0-32.0); Neutrophils # (auto) 8.5 10 ^3/uL (1.6-8.6)
[2021-12-23 13:25] LABS: Basophils % (auto) 0.5 % (0.0-2.0); Eosinophils % (auto) 2.6 % (0.0-7.0); Hematocrit 28.3 % (36.0-46.0); Mean Corpuscular Hgb Conc. 32.4 g/dL (32.0-36.0); Mean Corpuscular Volume 103.3 fL (80.0-100.0); Monocytes # (auto) 0.7 10 ^3/uL (0-1.3); Monocytes % (auto) 6.2 % (0.0-12.0); Neutrophils % (auto) 74.1 % (37.0-80.0); Red Blood Cells 2.74 10^6/uL (4.0-5.20); Red Cell Distribution Width 22.9 % (11.8-14.3); White Blood Cell 11.5 10^3/uL (4.4-10.8)
[2021-12-23 16:00] VITALS: BP 113/62
[2021-12-23] MEDS: DAPTOmycin 800 MG in SODIUM CHL 0.9% 50 ML IV SCH (18:19)
[2021-12-23] MEDS: APIXABAN 5 MG TAB PO SCH (21:08)
[2021-12-23] MEDS: ATORVASTATIN 20 MG TAB PO SCH (21:09)
[2021-12-23 22:00] VITALS: BP 94/52
[2021-12-24] MEDS: HYDROcodone-ACET 5/325MG TAB PO PRN ×2 (01:06→09:52)
[2021-12-24 05:00] VITALS: BP 95/63
[2021-12-24] MEDS: GABAPENTIN 300 MG CAP PO SCH ×3 (05:04→21:02)
[2021-12-24 09:00] VITALS: BP 118/78
[2021-12-24] MEDS: CEFTRIAXONE SODIUM 2 GM in D5W 5% 50 ML IV SCH ×2 (09:00→21:02)
[2021-12-24] MEDS: APIXABAN 5 MG TAB PO SCH ×2 (09:38→21:02)
[2021-12-24] MEDS: PANTOPRAZOLE 40 MG TAB PO SCH (09:38)
[2021-12-24] MEDS: NYSTATIN TOPICAL POWDER 15GM TOP SCH ×2 (09:38→21:03)
[2021-12-24] MEDS: ERGOCALCIFEROL 50,000 UNIT(1.25MG) CAP PO SCH (09:38)
[2021-12-24 13:00] VITALS: BP 110/70
[2021-12-24] MEDS ORDERED: CALC500C66 PO (15:31)
[2021-12-24] MEDS ORDERED: FURO1TAB33 PO (15:31)
[2021-12-24] MEDS ORDERED: APIX5TAB PO (15:31)
[2021-12-24] MEDS ORDERED: GABA300C10 PO (15:31)
[2021-12-24] MEDS ORDERED: FAMO20TA10 PO (15:31)
[2021-12-24] MEDS ORDERED: POTA-180 PO (15:31)
[2021-12-24] MEDS ORDERED: ATOR10TA52 PO (15:31)
[2021-12-24 17:00] VITALS: BP 140/69
[2021-12-24] MEDS: DAPTOmycin 800 MG in SODIUM CHL 0.9% 50 ML IV SCH (18:01)
[2021-12-24 19:45] VITALS: BP 105/52
[2021-12-24] MEDS: SILDENAFIL CITRATE 20 MG TAB PO SCH (19:45)
[2021-12-24] MEDS: ATORVASTATIN 20 MG TAB PO SCH (21:02)
[2021-12-24] MEDS: LORazepam 0.5 MG TAB PO PRN (21:03)
[2021-12-24 22:00] VITALS: BP 103/60
[2021-12-25] MEDS: HYDROcodone-ACET 5/325MG TAB PO PRN ×2 (03:08→09:47)
[2021-12-25 05:00] VITALS: BP 105/62
[2021-12-25] MEDS: GABAPENTIN 300 MG CAP PO SCH ×3 (05:34→22:09)
[2021-12-25] MEDS: SILDENAFIL CITRATE 20 MG TAB PO SCH ×4 (08:00→20:18)
[2021-12-25] MEDS: CEFTRIAXONE SODIUM 2 GM in D5W 5% 50 ML IV SCH ×2 (08:22→21:09)
[2021-12-25 09:00] VITALS: BP 91/54
[2021-12-25] MEDS: APIXABAN 5 MG TAB PO SCH ×2 (09:08→22:08)
[2021-12-25] MEDS: PANTOPRAZOLE 40 MG TAB PO SCH (09:09)
[2021-12-25] MEDS: NYSTATIN TOPICAL POWDER 15GM TOP SCH ×2 (09:09→22:09)
[2021-12-25 12:42] VITALS: BP 96/56
[2021-12-25] MEDS: LORazepam 0.5 MG TAB PO PRN ×2 (13:47→22:09)
[2021-12-25 16:09] VITALS: BP 102/59
[2021-12-25] MEDS: DAPTOmycin 800 MG in SODIUM CHL 0.9% 50 ML IV SCH (18:00)
[2021-12-25 22:00] VITALS: BP 103/69
[2021-12-25] MEDS: ATORVASTATIN 20 MG TAB PO SCH (22:09)
[2021-12-26] MEDS: HYDROcodone-ACET 5/325MG TAB PO PRN (04:36)
[2021-12-26 05:00] VITALS: BP 102/54
[2021-12-26] MEDS: GABAPENTIN 300 MG CAP PO SCH (06:37)
[2021-12-26 09:00] VITALS: BP 97/51
[2021-12-26] MEDS: APIXABAN 5 MG TAB PO SCH (10:44)
[2021-12-26] MEDS: CEFTRIAXONE SODIUM 2 GM in D5W 5% 50 ML IV SCH (10:44)
[2021-12-26] MEDS: PANTOPRAZOLE 40 MG TAB PO SCH (10:44)
[2021-12-26] MEDS: LORazepam 0.5 MG TAB PO PRN (10:44)
[2021-12-26] MEDS: SILDENAFIL CITRATE 20 MG TAB PO SCH (10:44)
[2021-12-26] MEDS: NYSTATIN TOPICAL POWDER 15GM TOP SCH (10:45)
[2021-12-26 13:00] VITALS: BP 119/76
== END 2021-12-26 13:00 | DRG 720 ==
LOC: EDBD 17:35 → ER 17:37 → TELE 12-15 04:43 → TELE-CENTR 12-15 08:00
PROVIDERS: ADMIT Nurse Practitioner Family; ATTEND Internal Medicine
PROC: 05HA33Z Insertion of Infusion Device into Left Brachial Vein, Percutaneous Approach (ICD-10-PCS; 2021-12-15)
PROC: B54NZZA Ultrasonography of Left Upper Extremity Veins, Guidance (ICD-10-PCS; 2021-12-15)
PROC: 05HA33Z Insertion of Infusion Device into Left Brachial Vein, Percutaneous Approach (ICD-10-PCS; principal; 2021-12-24)
PROC: B54NZZA Ultrasonography of Left Upper Extremity Veins, Guidance (ICD-10-PCS; 2021-12-24)
DX: A41.81 Sepsis due to Enterococcus (principal); N17.0 Acute kidney failure with tubular necrosis; J96.01 Acute respiratory failure with hypoxia; I13.0 Hypertensive heart and chronic kidney disease with heart failure and stage 1 through stage 4 chronic kidney disease, or unspecified chronic kidney disease; D63.1 Anemia in chronic kidney disease; E87.1 Hypo-osmolality and hyponatremia; I50.9 Heart failure, unspecified; E83.51 Hypocalcemia; I27.20 Pulmonary hypertension, unspecified; N39.0 Urinary tract infection, site not specified; E66.01 Morbid (severe) obesity due to excess calories; E87.6 Hypokalemia; I25.10 Atherosclerotic heart disease of native coronary artery without angina pectoris; Z20.822 Contact with and (suspected) exposure to COVID-19; J98.11 Atelectasis; E11.22 Type 2 diabetes mellitus with diabetic chronic kidney disease; E78.5 Hyperlipidemia, unspecified; J44.1 Chronic obstructive pulmonary disease with (acute) exacerbation; K21.9 Gastro-esophageal reflux disease without esophagitis; E83.42 Hypomagnesemia; K52.9 Noninfective gastroenteritis and colitis, unspecified; R79.89 Other specified abnormal findings of blood chemistry; N18.30 Chronic kidney disease, stage 3 unspecified; Z16.21 Resistance to vancomycin; Z68.43 Body mass index [BMI] 50.0-59.9, adult; Z79.01 Long term (current) use of anticoagulants; Z99.3 Dependence on wheelchair; Z79.02 Long term (current) use of antithrombotics/antiplatelets; Z79.51 Long term (current) use of inhaled steroids; Z80.1 Family history of malignant neoplasm of trachea, bronchus and lung; Z80.7 Family history of other malignant neoplasms of lymphoid, hematopoietic and related tissues; Z82.3 Family history of stroke; Z86.718 Personal history of other venous thrombosis and embolism; Z90.49 Acquired absence of other specified parts of digestive tract; Z91.19 Patient's noncompliance with other medical treatment and regimen; Z95.828 Presence of other vascular implants and grafts; Z79.899 Other long term (current) drug therapy; Z79.84 Long term (current) use of oral hypoglycemic drugs
CPT/HCPCS: 36415; 36600; 71045; 73700; 74176; 76775; 78582; 80048; 80053; 81001; 82306; 82570; 82805; 83735; 83880; 83970; 84100; 84156; 84300; 84484; 85007; 85025; 85027; 85379; 85610; 85730; 87040; 87045; 87077; 87186; 87426; 87427; 87493; 93005; 93306; 93970; 94640; 96365; 97110; 97116; 97530; G0378; J0696; J2405; J3490; J7060